=== PATIENT | male | born 1970 | race Caucasian/White ===

== ENCOUNTER → 2019-10-23 00:01 | Outpatient (BNVA) | payer MEDICAID, SELFPAY | PROVIDERS: PCP Nurse Practitioner; Referring Provider Nurse Practitioner; Visit Provider Nurse Practitioner | DX: Z76.89 Persons encountering health services in other specified circumstances (principal); K29.50 Unspecified chronic gastritis without bleeding; F25.9 Schizoaffective disorder, unspecified; M54.2 Cervicalgia; M54.9 Dorsalgia, unspecified; G89.29 Other chronic pain | CPT/HCPCS: 80053; 80061; 85025 ==

== ENCOUNTER → 2019-12-03 10:19 | Outpatient (BNVA) | payer MEDICAID, SELFPAY | PROVIDERS: PCP Nurse Practitioner; Visit Provider Nurse Practitioner Psychiatric/Mental Health | DX: F25.0 Schizoaffective disorder, bipolar type (principal); F12.20 Cannabis dependence, uncomplicated; F17.210 Nicotine dependence, cigarettes, uncomplicated | CPT/HCPCS: 99213 ==

== ENCOUNTER → 2020-01-22 08:13 | Outpatient (BNVA) | payer MEDICAID, SELFPAY | PROVIDERS: PCP Nurse Practitioner; Visit Provider Nurse Practitioner Psychiatric/Mental Health | DX: F25.0 Schizoaffective disorder, bipolar type (principal); F12.20 Cannabis dependence, uncomplicated; F17.210 Nicotine dependence, cigarettes, uncomplicated; F43.12 Post-traumatic stress disorder, chronic | CPT/HCPCS: 99213 ==

== ENCOUNTER → 2020-03-18 08:12 | Outpatient (BNVA) | payer MEDICAID, SELFPAY | PROVIDERS: PCP Nurse Practitioner; Visit Provider Nurse Practitioner Psychiatric/Mental Health | DX: F25.0 Schizoaffective disorder, bipolar type (principal); F12.20 Cannabis dependence, uncomplicated; F17.210 Nicotine dependence, cigarettes, uncomplicated | CPT/HCPCS: 99213 ==

== ENCOUNTER → 2020-05-19 09:08 | Outpatient (BNVA) | payer MEDICAID, SELFPAY | PROVIDERS: PCP Nurse Practitioner; Visit Provider Nurse Practitioner Psychiatric/Mental Health | DX: F25.0 Schizoaffective disorder, bipolar type (principal); F12.20 Cannabis dependence, uncomplicated; F17.210 Nicotine dependence, cigarettes, uncomplicated | CPT/HCPCS: 99213 ==

== ENCOUNTER → 2020-07-07 11:58 | Outpatient (BNVA) | payer MEDICAID, SELFPAY | PROVIDERS: PCP Nurse Practitioner; Visit Provider Family Medicine Adult Medicine | DX: R10.11 Right upper quadrant pain (principal); G89.29 Other chronic pain; I10 Essential (primary) hypertension; J44.9 Chronic obstructive pulmonary disease, unspecified; M54.41 Lumbago with sciatica, right side; M54.42 Lumbago with sciatica, left side; R73.03 Prediabetes; E78.5 Hyperlipidemia, unspecified; K29.70 Gastritis, unspecified, without bleeding; Z68.29 Body mass index [BMI] 29.0-29.9, adult; F17.210 Nicotine dependence, cigarettes, uncomplicated | CPT/HCPCS: 80053; 80061; 83036; 85025; 86705; 86706; 86709; 86803; 87340 ==

== ENCOUNTER → 2020-07-14 07:33 | Outpatient (BNVA) | payer MEDICAID, SELFPAY | PROVIDERS: PCP Nurse Practitioner; Visit Provider Nurse Practitioner Psychiatric/Mental Health | DX: K29.70 Gastritis, unspecified, without bleeding (principal); F25.0 Schizoaffective disorder, bipolar type; F12.20 Cannabis dependence, uncomplicated; F17.210 Nicotine dependence, cigarettes, uncomplicated | CPT/HCPCS: 99213 ==

== ENCOUNTER → 2020-08-30 15:08 | Outpatient (BNVA) | payer MEDICAID, SELFPAY | PROVIDERS: PCP Nurse Practitioner; Visit Provider Emergency Medicine | DX: Z20.828 Contact with and (suspected) exposure to other viral communicable diseases (principal) | CPT/HCPCS: 87635 ==

== ENCOUNTER → 2020-09-15 07:33 | Outpatient (BNVA) | payer MEDICAID, SELFPAY | PROVIDERS: PCP Nurse Practitioner; Visit Provider Nurse Practitioner Psychiatric/Mental Health | DX: K29.70 Gastritis, unspecified, without bleeding (principal); F25.0 Schizoaffective disorder, bipolar type; F12.20 Cannabis dependence, uncomplicated; F17.210 Nicotine dependence, cigarettes, uncomplicated | CPT/HCPCS: 99213 ==

== ENCOUNTER → 2020-12-09 07:39 | Outpatient (BNVA) | payer MEDICAID, SELFPAY | PROVIDERS: PCP Nurse Practitioner; Visit Provider Nurse Practitioner Psychiatric/Mental Health | DX: F25.0 Schizoaffective disorder, bipolar type (principal); F12.20 Cannabis dependence, uncomplicated; F17.210 Nicotine dependence, cigarettes, uncomplicated; Z79.899 Other long term (current) drug therapy | CPT/HCPCS: 99213 ==

== ENCOUNTER 2020-12-21 15:41 | Outpatient (CLI) | payer MEDICAID, SELFPAY ==
--- NOTE | 2020-12-21 16:00 | MR_ITS ---
WS: [id number] MRI CERVICAL SPINE NONCONTRAST TECHNIQUE: Sagittal T1, T2 and STIR imaging. Axial T2, gradient, and fiesta imaging. CLINICAL INFORMATION: neck pain and weakness in right hand COMPARISON: None. FINDINGS: Straightening of the normal cervical lordosis. Cord signal is normal. No high-grade central canal ashwin nosis. C2-C3: Normal. C3-C4: Mild disc bulging with osteophytic ridging. Mild facet arthropathy. Mild bilateral bony forami nal narrowing. C4-C5: Mild disc osteophyte complex with endplate ridging. Advanced left facet arthropathy with peria rticular edema. Small central protrusion. Mild central canal stenosis. Severe left and moderate right bony foraminal narrowing. C5-C6: Disc disc osteophyte complex with endplate ridging. Severe right and mild left bony foraminal narrowing. Moderate to advanced left facet arthropathy. C6-C7: Disc osteophyte complex with mild central canal stenosis. Tiny central protrusion. Moderate to severe left and moderate right bony foraminal narrowing. C7-T1: Mild bilateral bony foraminal narrowing. Spinal canal is patent Visualized brain stem structures: Normal. Prevertebral soft tissues: Normal. MR/MR cervical spin wo con* [id number] IMPRESSION: 1. Straightening of the normal cervical lordosis. Cord signal is normal. 2. Mild central canal stenosis C3-C4 C4-C5 and C6-C7 worse at C6-C7. 3. Moderate to severe bony foraminal narrowing worse at left C4-5, right C5-C6 and left C6-7. 4. Advanced left facet arthropathy C4-5 with periarticular edema consistent wi th synovitis/degenerative change.
== END 2020-12-21 15:42 | disposition home or self-care (01) ==
LOC: RADSHAW 15:43
PROVIDERS: PCP Family Medicine Adult Medicine; Visit Provider Family Medicine
DX: R53.1 Weakness (principal); M47.812 Spondylosis without myelopathy or radiculopathy, cervical region; R60.0 Localized edema; M48.02 Spinal stenosis, cervical region
CPT/HCPCS: 72141

== ENCOUNTER → 2021-01-07 13:46 | Outpatient (BNVA) | payer MEDICAID, SELFPAY | PROVIDERS: PCP Family Medicine Adult Medicine; Referring Provider Family Medicine; Visit Provider Orthopaedic Surgery | DX: M48.02 Spinal stenosis, cervical region (principal) | CPT/HCPCS: 72050 ==

== ENCOUNTER → 2021-01-14 11:49 | Outpatient (BNVA) | payer MEDICAID, SELFPAY | PROVIDERS: PCP Family Medicine Adult Medicine; Visit Provider Family Medicine Adult Medicine | DX: E78.5 Hyperlipidemia, unspecified (principal); I10 Essential (primary) hypertension; R73.03 Prediabetes; J44.9 Chronic obstructive pulmonary disease, unspecified; M50.121 Cervical disc disorder at C4-C5 level with radiculopathy; F17.210 Nicotine dependence, cigarettes, uncomplicated; Z68.31 Body mass index [BMI] 31.0-31.9, adult | CPT/HCPCS: 80053; 80061; 83036 ==

== ENCOUNTER → 2021-03-04 08:07 | Outpatient (BNVA) | payer MEDICAID, SELFPAY | PROVIDERS: PCP Family Medicine Adult Medicine; Visit Provider Nurse Practitioner Psychiatric/Mental Health | DX: F25.0 Schizoaffective disorder, bipolar type (principal); F12.20 Cannabis dependence, uncomplicated; F17.210 Nicotine dependence, cigarettes, uncomplicated | CPT/HCPCS: 99214 ==

== ENCOUNTER → 2021-05-27 07:21 | Outpatient (BNVA) | payer MEDICAID, SELFPAY | PROVIDERS: PCP Family Medicine Adult Medicine; Visit Provider Nurse Practitioner Psychiatric/Mental Health | DX: F25.0 Schizoaffective disorder, bipolar type (principal); F12.20 Cannabis dependence, uncomplicated; F17.210 Nicotine dependence, cigarettes, uncomplicated | CPT/HCPCS: 99214 ==

== ENCOUNTER → 2021-09-08 07:59 | Outpatient (BNVA) | payer MEDICAID, SELFPAY | PROVIDERS: PCP Family Medicine Adult Medicine; Visit Provider Nurse Practitioner Psychiatric/Mental Health | DX: F25.0 Schizoaffective disorder, bipolar type (principal); F12.20 Cannabis dependence, uncomplicated; F17.210 Nicotine dependence, cigarettes, uncomplicated; R41.9 Unspecified symptoms and signs involving cognitive functions and awareness | CPT/HCPCS: 99214 ==

== ENCOUNTER 2021-11-24 12:44 | Day surgery (SDC) | payer MEDICAID, SELFPAY ==
[2021-11-24 12:46] VITALS: BP 142/87; PULSE 88; RESP 17; O2SAT 97; BMI 25.1
--- NOTE | 2021-11-24 12:52 | W.ED.GENADLT ---
HPI - General Adult General: Chief complaint: Airway/Esophagus Foreign Body Stated complaint: UNABLE TO SWALLOW MEAT STUCK IN THROAT Time Seen by Provider: 11/24/21 12:44 Source: patient Mode of arrival: EMS Limitations: no limitations History of Present Illness: 51-year-old male presents to the emergency room with complaint of inability to swallow. He began less than a minute after he was eating a piece of meat. He had it before where he had things felt like they got stuck but he was able to clear them in the past either he vomited them up or was able to get him to pass. Since then he has not been able to eat or drink has difficulty even swallowing saliva. He denies any chest pain he has no history of heart disease he not been sick prior to this. He states he is not previously had an esophageal impaction or dilation. Onset (ago): hour(s) Quality: aching Pain Consistency: constant Relieving factors: none Exacerbating factors: none Associated symptoms: Deny chest pain, confusion, cough, diaphoresis, decreased appetite, dyspnea, fevers/chills, headache(s), malaise, nausea, rash, palpitations, seizures, short of breath, syncope, vomiting or weakness Treatments prior to arrival: none Review of Systems Const: Denies: malaise or diaphoresis ENMT: Denies: throat pain, ear or mastoid pain, nasal discharge or nasal congestion Card: Denies: chest pain, palpitations or syncope Resp: Denies: dyspnea GI: Denies: nausea or vomiting : Denies: flank pain, dysuria, urinary frequency or urinary urgency Skin/Breast: Denies: rash Neuro: Denies: headache(s) or confusion FORMERLY [facility], 1928–1983 ED PFSH: Medical History Cannabis dependence, daily use Patient states he uses daily for pain management-reports having a medical marijuana card Cervical disc disorder at C4-C5 level with radiculopathy Chronic low back pain with bilateral sciatica COPD (chronic obstructive pulmonary disease) Encounter to establish care Esophageal stricture Hyperlipidemia Hypertension Nicotine dependence, cigarettes, uncomplicated Prediabetes Psychiatric care Radiculopathy of cervical region Radiculopathy of lumbosacral region Right upper quadrant abdominal pain Schizoaffective disorder, bipolar type Surgical History H/O esophagogastroduodenoscopy (11/24/21) Disimpaction of food bolus History of ankle surgery left History of arthroscopic knee surgery Social History Smoking and tobacco status: current every day smoker cigarettes Packs smoked per day: 1 Alcohol intake: former Adopted: Yes History of recent travel: No Physical Exam Const: COMMON NORMALS: no acute distress GENERAL APPEARANCE: cooperative and comfortable ORIENTATION/CONSCIOUSNESS: Yes awake, Yes oriented to person, Yes oriented to place and Yes oriented to time HENMT: COMMON NORMALS: normocephalic, atraumatic and hearing grossly normal bilaterally HEAD & SCALP: normocephalic and atraumatic Neck/C-Spine: COMMON NORMALS: no JVD Resp: COMMON NORMALS: normal respiratory effort, No retractions, No use of accessory muscles and clear to auscultation bilaterally AUSCULTATION: clear to auscultation bilaterally Cardio: COMMON NORMALS: no JVD, regular rate, regular rhythm and No murmurs present (Cardio) RATE: regular rate RHYTHM: regular rhythm GI: COMMON NORMALS: Soft to palpation and No hepatosplenomegaly present AUSCULTATION: Yes normoactive bowel sounds PALPATION: Yes Soft to palpation, No Tenderness to palpation present (GI), No Guarding due to palpation present (GI) and Yes No hepatosplenomegaly present Extremity: COMMON NORMALS: normal to inspection, capillary refill normal, no clubbing, cyanosis or edema, no calf tenderness and no pedal edema Neuro: SENSORIUM/ORIENTATION: Yes oriented to person, Yes oriented to place and Yes oriented to time Skin: COMMON NORMALS: no rashes or lesions noted GENERAL SKIN EXAM: no rashes or lesions noted Course Vital Signs: Vital signs: Vital Signs Temperature 97 F L 11/24/21 14:57 Pulse Rate 79 11/24/21 15:07 Respiratory Rate 16 11/24/21 15:07 Blood Pressure 124/85 11/24/21 15:07 Pulse Oximetry 99 11/24/21 15:07 [facility] - General Adult Medical Decision Making ` Foreign body discussed with surgery on-call they agreed to take the patient was discharged from the ER directly to outpatient surgery for EGD. Medical Records I reviewed the patient's medical records. Lab Data : 11/24/21 13:17 11/24/21 13:17 Laboratory Results WBC 4.8 10^3/uL (4.0-10.0) 11/24/21 13:17 RBC 5.08 10^6/uL (4.1-5.3) 11/24/21 13:17 Hgb 16.1 g/dL (11.7-16.6) 11/24/21 13:17 Hct 47.5 % (42.0-52.0) 11/24/21 13:17 MCV 93.5 fl (80-94) 11/24/21 13:17 MCH 31.7 pg (28.0-34.0) 11/24/21 13:17 MCHC 33.9 g/dL (30.0-36.0) 11/24/21 13:17 RDW 13.6 % (12.1-15.1) 11/24/21 13:17 Plt Count 202 10^3/cmm (130-400) 11/24/21 13:17 MPV 10.7 fL (7.4-10.4) H 11/24/21 13:17 Neut % (Auto) 48.0 % 11/24/21 13:17 Lymph % (Auto) 38.7 % 11/24/21 13:17 [place] % (Auto) 8.2 % 11/24/21 13:17 Eos % (Auto) 3.6 % 11/24/21 13:17 Baso % (Auto) 1.3 % 11/24/21 13:17 Neut # (Auto) 2.28 10^3/uL (1.8-7.7) 11/24/21 13:17 Lymph # (Auto) 1.8 10^3/uL (0.8-4.8) 11/24/21 13:17 [place] # (Auto) 0.4 10^3/uL (0.2-0.9) 11/24/21 13:17 Eos # (Auto) 0.2 10^3/uL (0.0-0.8) 11/24/21 13:17 Baso # (Auto) 0.1 10^3/uL (0.0-0.1) 11/24/21 13:17 Nucleated RBC % (auto) 0 % 11/24/21 13:17 Nucleated RBCs # 0.0 /100WBC 11/24/21 13:17 Sodium 140 mmol/L (136-145) 11/24/21 13:17 Potassium 4.0 mmol/L (3.5-5.1) 11/24/21 13:17 Chloride 105 mmol/L (98-107) 11/24/21 13:17 Carbon Dioxide 22 mmol/L (22-29) 11/24/21 13:17 Anion Gap 17.0 (5-19) 11/24/21 13:17 BUN 11 mg/dL (6-20) 11/24/21 13:17 Creatinine 0.8 mg/dL (0.7-1.2) 11/24/21 13:17 GFR Calculation 102.3 mL/min (90-130) 11/24/21 13:17 Glucose 84 mg/dL (65-115) 11/24/21 13:17 Calculated Osmolality 289 mOsm/kg (285-295) 11/24/21 13:17 Calcium 9.7 mg/dL (8.5-10.5) 11/24/21 13:17 Discharge Plan Discharge Patient Disposition: Home Clinical Impression: Esophageal foreign body Condition: Stable Discharge Orders: Discharge Order (Routine); Ordered 11/24/21 Ordered By: Fab Purcell Discharge ED (Routine); Ordered 11/24/21 Ordered By: Javi Peck Coding Level of Care Code ED Fire Engine Pump Operator for Radha Charles
--- NOTE | 2021-11-24 13:04 | PC.NURSE ---
Patient stated that there is no point in taking his blood because he is not here to get blood work done. He refuses to have labs drawn.
--- NOTE | 2021-11-24 13:08 | P.ANESASSM_ITS ---
Pre-Anesthetic Assessment Height/Weight: Height 1.78 m Weight 79.379 kg Pulse Resp BP Pulse Ox 88 17 142/87 97 11/24/21 12:46 11/24/21 12:46 11/24/21 12:46 11/24/21 12:46 Operation Date: 11/24/21 13:15 Proposed Procedures p EGD(Not Applicable) - Fab Purcell MD Pulmonary Chronic Obstructive Pulmonary Disease CV/HEM [place] [facility] [place] Cervical disk disorder with radiculopathy Medications/Allergies Home Medications Medication Instructions Recorded Confirmed Last Taken Type fluticasone 250 mcg-salmeterol 50 1 inh INHALATION BID #60 ea 04/08/21 09/07/21 Unknown Rx mcg/dose blistr powdr for inhalation (Advair Diskus) meloxicam 7.5 mg tablet 7.5 mg PO BIDWMEAL #60 tab 04/08/21 09/07/21 Unknown Rx gabapentin 300 mg capsule See Rx Instructions .ROUTE 05/14/21 09/07/21 Unknown Rx .COMPLEX #270 cap omeprazole 20 mg capsule,delayed See Rx Instructions .ROUTE 05/14/21 09/07/21 Unknown Rx release .COMPLEX #90 cap propranolol 10 mg tablet See Rx Instructions .ROUTE 05/14/21 09/07/21 Unknown Rx .COMPLEX #270 tab ProAir HFA 90 mcg/actuation See Rx Instructions .ROUTE 08/24/21 09/07/21 Unknown Rx aerosol inhaler (albuterol sulfate) .COMPLEX #8.5 gram NS gemfibrozil 600 mg tablet See Rx Instructions .ROUTE 08/24/21 09/07/21 Unknown Rx .COMPLEX #60 tab benztropine 1 mg tablet 1 mg PO BID #180 tab 09/08/21 09/08/21 Unknown Rx cyproheptadine 4 mg tablet 4 mg PO .QHS #90 tab 09/08/21 09/08/21 Unknown Rx fluoxetine 40 mg capsule 40 mg PO QAM #90 cap 09/08/21 09/08/21 Unknown Rx quetiapine 100 mg tablet 100 mg PO QAM #90 tab 09/08/21 09/08/21 Unknown Rx quetiapine 300 mg tablet (Seroquel) 300 mg PO .bedtime #90 tab 09/08/21 09/08/21 Unknown Rx Allergies Allergy/AdvReac Type Severity Reaction Status Date / Time chlorpromazine AdvReac Intermediate ADR-Seizure Verified 04/08/21 13:11 [From Thorazine] hydroxyzine [From Vistaril] AdvReac Intermediate ADR-Anxiety Verified 04/08/21 13:11 [facility] Anesthesia Medical History (Updated 11/24/21 @ 13:07 by Javi Peck, ) Cannabis dependence, daily use Patient states he uses daily for pain management-reports having a medical marijuana card Cervical disc disorder at C4-C5 level with radiculopathy Chronic low back pain with bilateral sciatica COPD (chronic obstructive pulmonary disease) Encounter to establish care Hyperlipidemia Hypertension Nicotine dependence, cigarettes, uncomplicated Prediabetes Psychiatric care Radiculopathy of cervical region Radiculopathy of lumbosacral region Right upper quadrant abdominal pain Schizoaffective disorder, bipolar type Surgical History History of ankle surgery left History of arthroscopic knee surgery Social History Smoking and tobacco status: current every day smoker cigarettes Packs smoked per day: 1 Alcohol intake: former Adopted: Yes History of recent travel: No Data Anesthesia Cardiac Studies: No Data to Display
[2021-11-24] MEDS: sodium chloride 0.9% 1,000 ML 30 ML IV (13:12)
--- NOTE | 2021-11-24 13:22 | PM.HP ---
Providers/Chief Complaint Primary Care Provider: Jasson Torres MD Chief Complaint: UNABLE TO SWALLOW MEAT STUCK IN THROAT History of Present Illness Marty Rosas is a 51 year old male who is edentulous and had piece of steak at midnight and has been unable to swallow any liquids since then. Patient denies any chest or abdominal pain. No similar episodes in the past. Patient is currently on omeprazole. He denies any hematemesis Review of Systems General: Reports: 10 or more systems reviewed and unremarkable except in HPI and below Medications/Allergies Home Medications Medication Instructions Recorded Confirmed Last Taken Type fluticasone 250 mcg-salmeterol 50 1 inh INHALATION BID #60 ea 04/08/21 09/07/21 Unknown Rx mcg/dose blistr powdr for inhalation (Advair Diskus) meloxicam 7.5 mg tablet 7.5 mg PO BIDWMEAL #60 tab 04/08/21 09/07/21 Unknown Rx gabapentin 300 mg capsule See Rx Instructions .ROUTE 05/14/21 09/07/21 Unknown Rx .COMPLEX #270 cap omeprazole 20 mg capsule,delayed See Rx Instructions .ROUTE 05/14/21 09/07/21 Unknown Rx release .COMPLEX #90 cap propranolol 10 mg tablet See Rx Instructions .ROUTE 05/14/21 09/07/21 Unknown Rx .COMPLEX #270 tab ProAir HFA 90 mcg/actuation See Rx Instructions .ROUTE 08/24/21 09/07/21 Unknown Rx aerosol inhaler (albuterol sulfate) .COMPLEX #8.5 gram NS gemfibrozil 600 mg tablet See Rx Instructions .ROUTE 08/24/21 09/07/21 Unknown Rx .COMPLEX #60 tab benztropine 1 mg tablet 1 mg PO BID #180 tab 09/08/21 09/08/21 Unknown Rx cyproheptadine 4 mg tablet 4 mg PO .QHS #90 tab 09/08/21 09/08/21 Unknown Rx fluoxetine 40 mg capsule 40 mg PO QAM #90 cap 09/08/21 09/08/21 Unknown Rx quetiapine 100 mg tablet 100 mg PO QAM #90 tab 09/08/21 09/08/21 Unknown Rx quetiapine 300 mg tablet (Seroquel) 300 mg PO .bedtime #90 tab 09/08/21 09/08/21 Unknown Rx Allergies Allergy/AdvReac Type Severity Reaction Status Date / Time chlorpromazine AdvReac Intermediate ADR-Seizure Verified 04/08/21 13:11 [From Thorazine] hydroxyzine [From Vistaril] AdvReac Intermediate ADR-Anxiety Verified 04/08/21 13:11 PFSH Acute PFSH: Medical History (Updated 11/24/21 @ 15:13 by Fab Purcell MD) Cannabis dependence, daily use Patient states he uses daily for pain management-reports having a medical marijuana card Cervical disc disorder at C4-C5 level with radiculopathy Chronic low back pain with bilateral sciatica COPD (chronic obstructive pulmonary disease) Encounter to establish care Esophageal stricture Hyperlipidemia Hypertension Nicotine dependence, cigarettes, uncomplicated Prediabetes Psychiatric care Radiculopathy of cervical region Radiculopathy of lumbosacral region Right upper quadrant abdominal pain Schizoaffective disorder, bipolar type Surgical History (Updated 11/24/21 @ 15:13 by Fab Purcell MD) H/O esophagogastroduodenoscopy (11/24/21) Disimpaction of food bolus History of ankle surgery left History of arthroscopic knee surgery Social History Smoking and tobacco status: current every day smoker cigarettes Packs smoked per day: 1 Alcohol intake: former Adopted: Yes History of recent travel: No Vitals/I&O/Wt Last Vital Signs Pulse 88 11/24/21 12:46 Resp 17 11/24/21 12:46 BP 142/87 11/24/21 12:46 Pulse Ox 97 11/24/21 12:46 Weight last 48 hrs Weight 175 lb Physical Exam Narrative: HEENT: Normocephalic Eye: Sclera /conjunctiva normal Abdomen: Soft to palpation Neurological: Oriented to place person and time Skin: Intact, no lesions appreciated on gross exam Data : 11/24/21 13:17 11/24/21 13:17 A&P Assessment and plan (1) Esophageal foreign body: 51-year-old male who presents with 12-hour history of esophageal obstruction due to food impaction. Plan for EGD with disimpaction of food bolus Procedure, risks, benefits and alternatives have been discussed with the patient who wishes to proceed with surgery. Status: Acute Attestations Medical Necessity Statement*: Esophageal obstruction due to food impaction requiring EGD Coding Level of Care Code Acute Highway Maintenance Technician for Chg Fwd Diagnoses Esophageal foreign body T18.108A
[2021-11-24 13:24] LABS: Basophils # 0.1 10^3/uL (0.0-0.1); Basophils % 1.3 %; Eosinophils # 0.2 10^3/uL (0.0-0.8); Eosinophils % 3.6 %; Hematocrit 47.5 % (42.0-52.0); Hemoglobin 16.1 g/dL (11.7-16.6); Lymphocytes # 1.8 10^3/uL (0.8-4.8); Lymphocytes % 38.7 %; Mean Corpuscular HGB Conc 33.9 g/dL (30.0-36.0); Mean Corpuscular Hemoglobin 31.7 pg (28.0-34.0); Mean Corpuscular Volume 93.5 fl (80-94); Mean Platelet Volume 10.7 fL (7.4-10.4); Monocytes # 0.4 10^3/uL (0.2-0.9); Monocytes % 8.2 %; Neutrophils # 2.28 10^3/uL (1.8-7.7); Nucleated Red Blood Cells % 0 %; Platelet Count 202 10^3/cmm (130-400); Red Blood Count 5.08 10^6/uL (4.1-5.3); Red Cell Distribution Width 13.6 % (12.1-15.1); White Blood Count 4.8 10^3/uL (4.0-10.0)
[2021-11-24 13:47] LABS: Blood Urea Nitrogen 11 mg/dL (6-20); Calcium 9.7 mg/dL (8.5-10.5); Carbon Dioxide 22 mmol/L (22-29); Chloride 105 mmol/L (98-107); Glomerular Filtration Rate 102.3 mL/min (90-130); Glucose 84 mg/dL (65-115); Osmolality Calculated 289 mOsm/kg (285-295); Sodium 140 mmol/L (136-145)
[2021-11-24 14:46] VITALS: BP 116/75; PULSE 82; RESP 12; TEMP 36.1; O2SAT 100
[2021-11-24 14:51] VITALS: BP 128/83; PULSE 73; RESP 18; O2SAT 98
[2021-11-24 14:56] VITALS: BP 122/81; PULSE 84; RESP 20; O2SAT 97
[2021-11-24 14:57] VITALS: BP 122/81; PULSE 84; RESP 20; TEMP 36.1; O2SAT 97
[2021-11-24 15:07] VITALS: BP 124/85; PULSE 79; RESP 16; O2SAT 99
--- NOTE | 2021-11-24 15:14 | ANES.PREANE2 ---
Pre-Anesthetic Assessment Height/Weight: Height 1.78 m Weight 79.379 kg Temp Pulse Resp BP Pulse Ox 97 F L 79 16 124/85 99 11/24/21 14:57 11/24/21 15:07 11/24/21 15:07 11/24/21 15:07 11/24/21 15:07 Operation Date: 11/24/21 13:15 Proposed Procedures p EGD(Not Applicable) - Fab Purcell MD Familial anesthetic complications: None Was Beta Stef taken within 24 hours: N/A ( off my meds ) Social Tobacco and No alcohol Exam alert, oriented x 3, clear to auscultation bilaterally and regular rate & rhythm Airway Submandibular: within normal limits Cervical ROM: within normal limits Mallampati: Class I Dentition: false Pulmonary Chronic Obstructive Pulmonary Disease CV/HEM Hypertension None reported Hepatic None reported GI Gastroesophageal Reflux Disease Metabolic None reported Musc/skel Osteoarthritis/DJD Neuropsych Schizoaffective disorder Anesthetic Plan ASA status: 2 Anesthesia: Anesthesia Evaluation and General Other: We discussed risk and benefits of general anesthesia including PONV, sore throat (sometimes severe), corneal abrasion, positioning and peripheral nerve injuries, life threatening allergic reaction, post operative ICU admission requiring prolonged intubation, stroke, heart attack, , and rare incidences of recall. Patient consents to proceed with general anesthesia. Risk of > 500 ml blood loss (7ml/kg in children): No Other Pertinent Information Note inadvertently filed incomplete. Patient seen and examined prior to procedure. Medications/Allergies Home Medications Medication Instructions Recorded Confirmed Last Taken Type fluticasone 250 mcg-salmeterol 50 1 inh INHALATION BID #60 ea 04/08/21 09/07/21 Unknown Rx mcg/dose blistr powdr for inhalation (Advair Diskus) meloxicam 7.5 mg tablet 7.5 mg PO BIDWMEAL #60 tab 04/08/21 09/07/21 Unknown Rx gabapentin 300 mg capsule See Rx Instructions .ROUTE 05/14/21 09/07/21 Unknown Rx .COMPLEX #270 cap omeprazole 20 mg capsule,delayed See Rx Instructions .ROUTE 05/14/21 09/07/21 Unknown Rx release .COMPLEX #90 cap propranolol 10 mg tablet See Rx Instructions .ROUTE 05/14/21 09/07/21 Unknown Rx .COMPLEX #270 tab ProAir HFA 90 mcg/actuation See Rx Instructions .ROUTE 08/24/21 09/07/21 Unknown Rx aerosol inhaler (albuterol sulfate) .COMPLEX #8.5 gram NS gemfibrozil 600 mg tablet See Rx Instructions .ROUTE 08/24/21 09/07/21 Unknown Rx .COMPLEX #60 tab benztropine 1 mg tablet 1 mg PO BID #180 tab 09/08/21 09/08/21 Unknown Rx cyproheptadine 4 mg tablet 4 mg PO .QHS #90 tab 09/08/21 09/08/21 Unknown Rx fluoxetine 40 mg capsule 40 mg PO QAM #90 cap 09/08/21 09/08/21 Unknown Rx quetiapine 100 mg tablet 100 mg PO QAM #90 tab 09/08/21 09/08/21 Unknown Rx quetiapine 300 mg tablet (Seroquel) 300 mg PO .bedtime #90 tab 09/08/21 09/08/21 Unknown Rx Allergies Allergy/AdvReac Type Severity Reaction Status Date / Time chlorpromazine AdvReac Intermediate ADR-Seizure Verified 04/08/21 13:11 [From Thorazine] hydroxyzine [From Vistaril] AdvReac Intermediate ADR-Anxiety Verified 04/08/21 13:11 Current Medications Generic Name Dose Route Start Last Admin Trade Name Freq PRN Reason Stop Dose Admin Sodium Chloride 1,000 mls @ 30 mls/hr 11/24/21 14:30 11/24/21 15:11 Sodium Chloride 0.9% IV 11/25/21 14:29 Infused .Q24H OCTAVIA Infusion PFS Anesthesia Medical History (Updated 11/24/21 @ 15:13 by Fab Purcell MD) Cannabis dependence, daily use Patient states he uses daily for pain management-reports having a medical marijuana card Cervical disc disorder at C4-C5 level with radiculopathy Chronic low back pain with bilateral sciatica COPD (chronic obstructive pulmonary disease) Encounter to establish care Esophageal stricture Hyperlipidemia Hypertension Nicotine dependence, cigarettes, uncomplicated Prediabetes Psychiatric care Radiculopathy of cervical region Radiculopathy of lumbosacral region Right upper quadrant abdominal pain Schizoaffective disorder, bipolar type Surgical History (Updated 11/24/21 @ 15:13 by Fab Purcell MD) H/O esophagogastroduodenoscopy (11/24/21) Disimpaction of food bolus History of ankle surgery left History of arthroscopic knee surgery Social History Smoking and tobacco status: current every day smoker cigarettes Packs smoked per day: 1 Alcohol intake: former Adopted: Yes History of recent travel: No Data Anesthesia : 11/24/21 13:17 11/24/21 13:17 Short CBC 11/24/21 Range/Units 13:17 WBC 4.8 (4.0-10.0) 10^3/uL Hgb 16.1 (11.7-16.6) g/dL Hct 47.5 (42.0-52.0) % MCV 93.5 (80-94) fl Plt Count 202 (130-400) 10^3/cmm Neut % (Auto) 48.0 % Neut # (Auto) 2.28 (1.8-7.7) 10^3/uL BMP 11/24/21 13:17 Sodium 140 Potassium 4.0 Chloride 105 Carbon Dioxide 22 BUN 11 Creatinine 0.8 Glucose 84 Calcium 9.7 Cardiac Studies: No Data to Display
--- NOTE | 2021-11-24 16:25 | ANE.PACU2 ---
Inpatient post-anesthesia follow up: Airway intact: Yes Vital signs: Temperature 97 F Pulse Rate 79 Respiratory Rate 16 Blood Pressure 124/85 Pulse Oximetry 99 Oxygen Delivery Me thod Room Air Oxygen Flow Rate 8 Fraction of Inspir ed Oxygen Hydration adequate: Yes Nausea and vomiting: No Pain level: 1 Mental status: Baseline
== END 2021-11-24 15:20 | disposition home or self-care (01) ==
LOC: ER 13:07 → OPS 13:09
PROVIDERS: Emergency Provider Family Medicine; PCP Family Medicine Adult Medicine; Visit Provider Surgery
PROC: 0DJ08ZZ Inspection of Upper Intestinal Tract, Via Natural or Artificial Opening Endoscopic (ICD-10-PCS; CPT 43235; principal; 2021-11-24 13:15)
DX: T17.228A Food in pharynx causing other injury, initial encounter (principal); J44.9 Chronic obstructive pulmonary disease, unspecified; E78.5 Hyperlipidemia, unspecified; I10 Essential (primary) hypertension; F17.210 Nicotine dependence, cigarettes, uncomplicated; R73.03 Prediabetes; K21.9 Gastro-esophageal reflux disease without esophagitis; M19.90 Unspecified osteoarthritis, unspecified site; F25.9 Schizoaffective disorder, unspecified
CPT/HCPCS: 43239; 43247; 80048; 85025; 88305; 99283; 99291; 99292; J0330; J1100; J2405; J2704; J3010; J3490; J7030

== ENCOUNTER 2021-12-10 20:54 | Inpatient (IN) | payer MEDICAID, SELFPAY ==
[2021-12-10 21:23] VITALS: BP 144/90; PULSE 98; RESP 18; TEMP 36.2; O2SAT 99; BMI 23.6
[2021-12-10] MEDS: ziprasidone 20 mg/mL SDV IM (22:12)
[2021-12-10] MEDS: LORazepam 2 mg/mL INJ 1 mL IM (22:21)
[2021-12-10 22:32] LABS: Basophils # 0.1 10^3/uL (0.0-0.1); Basophils % 0.8 %; Eosinophils # 0.2 10^3/uL (0.0-0.8); Eosinophils % 2.6 %; Hematocrit 49.8 % (42.0-52.0); Hemoglobin 17.1 g/dL (11.7-16.6); Lymphocytes # 2.6 10^3/uL (0.8-4.8); Lymphocytes % 42.7 %; Mean Corpuscular HGB Conc 34.3 g/dL (30.0-36.0); Mean Corpuscular Hemoglobin 31.4 pg (28.0-34.0); Mean Corpuscular Volume 91.5 fl (80-94); Mean Platelet Volume 10.6 fL (7.4-10.4); Monocytes # 0.6 10^3/uL (0.2-0.9); Monocytes % 10.1 %; Neutrophils # 2.67 10^3/uL (1.8-7.7); Neutrophils % 43.6 %; Nucleated Red Blood Cells % 0 %; Platelet Count 219 10^3/cmm (130-400); Red Blood Count 5.44 10^6/uL (4.1-5.3); Red Cell Distribution Width 13.4 % (12.1-15.1); White Blood Count 6.1 10^3/uL (4.0-10.0)
[2021-12-10 22:52] LABS: Acetaminophen < 5.0 ug/mL (10-30); Alanine Aminotransferase 56 U/L (0-41); Albumin Level 4.8 g/dL (3.5-5.2); Alcohol Level 23 mg/dL (0-10); Alkaline Phosphatase 84 IU/L (40-130); Anion Gap 19.1 (5-19); Aspartate Amino Transferase 88 U/L (0-40); Blood Urea Nitrogen 9 mg/dL (6-20); Calcium 10.3 mg/dL (8.5-10.5); Carbon Dioxide 24 mmol/L (22-29); Chloride 97 mmol/L (98-107); Creatinine Clr Calc Pharmacy 92.1715; Globulin 2.7 g/dL (1.3-4.6); Glomerular Filtration Rate 79.1 mL/min (90-130); Glucose 75 mg/dL (65-115); Osmolality Calculated 279 mOsm/kg (285-295); Potassium 4.1 mmol/L (3.5-5.1); Salicylate < 0.3 mg/dL (3-10); Sodium 136 mmol/L (136-145); Total Bilirubin 0.7 mg/dL (0.15-1.2); Total Protein 7.5 g/dL (6.6-8.7)
[2021-12-11 00:50] VITALS: BP 142/86; PULSE 82; RESP 16; O2SAT 98
[2021-12-11 00:51] VITALS: BP 116/76; PULSE 97; RESP 18; TEMP 36.3; O2SAT 96
--- NOTE | 2021-12-11 01:45 | PC.ADMIT ---
[facility] Admission Note: The patient,Marty Rosas,51 y/o, was given written information regarding hospital policies, unit procedures and contact persons. Patient's smoking status: current every day smoker. Vital Signs - 8 hr 12/10/21 21:23 12/11/21 00:50 12/11/21 00:51 Temperature 97.1 F L 97.4 F L Pulse Rate 98 82 97 Respiratory Rate 18 16 18 Blood Pressure 144/90 142/86 116/76 Pulse Oximetry 99 98 96 Rec'd an 51 y/o white male. Vol from the ED. He was brought to the ED by a friend. States he has been using meth. He was very delusional. He got on the unit at 0059. He was very hostile demanding to go to bed. He was somewhat cooperative with the body assessment and change out. He has numerous tattoo's- abd, Right upper arm. Right upper chest, Left upper arm, Left side of neck, and upper back. He had open sores on both arms. He has two areas on neck that appears to be carbajal. He has several reddened harris on his chest. He has a long scratch on left buttock, left thigh, and right lower leg. He was dirty. He did not cooperative with the assessment unable to answer questions at this time.
--- NOTE | 2021-12-11 03:18 | ED.C_ITS ---
HPI - Psych General: Chief Complaint: Psychiatric Symptoms Stated Complaint: DRUGS Time Seen by Provider: 12/10/21 21:50 Source: patient History of Present Illness: 51-year-old male with a long history of psychiatric illness presents through the front door. In the waiting room, he is restless, up walking around. He shouts. When brought back, he complains about bugs crawling out of his body. He states the bugs are reproducing inside of them and hatching. He shows us a bag of bread crumbs and tells us these are what is growing inside him. He does also state that he has been off of his psychiatric medication, and would like to go back on his medication. He has been self-medicating with drugs, likely amphetamine. He denies any suicidality or homicidality, but does wish treatment. He also believes his girlfriend is out to get him . MD complaint: altered mental status and other Onset (ago): day(s) Duration: constant and getting worse History of same: Yes Relieving factors: none Exacerbating factors: none Context: recent alcohol abuse and recent drug abuse Associated psychiatric symptoms: racing thoughts and delusions Associated symptoms: Reports visual hallucinations and delusions; Deny auditory hallucinations, homicidal ideation or suicidal ideation Review of Systems Const: Denies: fever(s) Eyes: Denies: change in vision Card: Denies: chest pain or palpitations Resp: Denies: dyspnea, productive cough or non-productive cough GI: Denies: abdominal pain, nausea, vomiting or hematemesis Psych: Reports: visual hallucinations; Denies: auditory hallucinations, suicidal ideation or homicidal ideation [facility] ED PFSH: Medical History Cannabis dependence, daily use Patient states he uses daily for pain management-reports having a medical marijuana card Cervical disc disorder at C4-C5 level with radiculopathy Chronic low back pain with bilateral sciatica COPD (chronic obstructive pulmonary disease) Encounter to establish care Esophageal stricture Hyperlipidemia Hypertension Nicotine dependence, cigarettes, uncomplicated Prediabetes Psychiatric care Radiculopathy of cervical region Radiculopathy of lumbosacral region Right upper quadrant abdominal pain Schizoaffective disorder, bipolar type Surgical History H/O esophagogastroduodenoscopy (11/24/21) Disimpaction of food bolus History of ankle surgery left History of arthroscopic knee surgery Social History Smoking and tobacco status: current every day smoker cigarettes Packs smoked per day: 1 Alcohol intake: former Adopted: Yes History of recent travel: No Physical Exam Const: COMMON NORMALS: alert GENERAL APPEARANCE: disheveled; not cooperative ORIENTATION/CONSCIOUSNESS: Yes oriented to person and Yes oriented to place HENMT: COMMON NORMALS: normocephalic, atraumatic, external ears normal and Normal external nose present HEAD & SCALP: normocephalic and atraumatic FACE & SINUS: normal facial exam NOSE: Normal external nose present EXTERNAL EAR: Yes external ears normal Eye: COMMON NORMALS: Equal, round and reactive pupils present and EOMs intact bilaterally PUPIL: Yes Equal, round and reactive pupils present Chest: COMMONS NORMALS: normal inspection of the chest Resp: COMMON NORMALS: normal respiratory effort, No use of accessory muscles and clear to auscultation bilaterally AUSCULTATION: clear to auscultation bilaterally Cardio: COMMON NORMALS: regular rate and regular rhythm RATE: regular rate RHYTHM: regular rhythm GI: COMMON NORMALS: Normal to inspection, nondistended, normoactive bowel sounds present and Soft to palpation PALPATION: Yes Soft to palpation Neuro: SENSORIUM/ORIENTATION: Yes alert, Yes oriented to person and Yes oriented to place SPEECH: speech normal Psych: APPEARANCE: Yes unkempt ATTITUDE: Yes paranoid, Yes Withdrawn affect present, Yes uncooperative and Yes evasive ACTIVITY/MOTOR BEHAVIOR: Yes psychomotor agitation, Yes disorganized behavior and Yes restless SPEECH: Yes excessive and Yes loud THOUGHT CONTENT: Yes delusions Course Consultations: Consultation #1: mc Vital Signs: Vital signs: Vital Signs Temperature 97.4 F L 12/11/21 00:51 Pulse Rate 97 12/11/21 00:51 Respiratory Rate 18 12/11/21 00:51 Blood Pressure 116/76 12/11/21 00:51 Pulse Oximetry 96 12/11/21 00:51 MDM - Psych Medical Decision Making 51-year-old male came in seeking treatment, mainly for the bugs crawling out of my skin . But also wanting treatment for his psychiatric disorder as well. He is not suicidal or homicidal, therefore 96-hour order for hold was not placed. He is however paranoid, and delusional as well as seeing hallucinations. Because of this he was given Geodon and Ativan with good effect. Patient was much more calm and receptive to treatment following. We gave these medications with his blessing. Spoke with psychiatry. He is medically stable. He will go to the neuro psychiatry unit for further treatment given his psychosis Lab Data : 12/10/21 22:16 12/10/21 22:16 Laboratory Results WBC 6.1 10^3/uL (4.0-10.0) 12/10/21 22:16 RBC 5.44 10^6/uL (4.1-5.3) H 12/10/21 22:16 Hgb 17.1 g/dL (11.7-16.6) H 12/10/21 22:16 Hct 49.8 % (42.0-52.0) 12/10/21 22:16 MCV 91.5 fl (80-94) 12/10/21 22:16 MCH 31.4 pg (28.0-34.0) 12/10/21 22:16 MCHC 34.3 g/dL (30.0-36.0) 12/10/21 22:16 RDW 13.4 % (12.1-15.1) 12/10/21 22:16 Plt Count 219 10^3/cmm (130-400) 12/10/21 22:16 MPV 10.6 fL (7.4-10.4) H 12/10/21 22:16 Neut % (Auto) 43.6 % 12/10/21 22:16 Lymph % (Auto) 42.7 % 12/10/21 22:16 [place] % (Auto) 10.1 % 12/10/21 22:16 Eos % (Auto) 2.6 % 12/10/21 22:16 Baso % (Auto) 0.8 % 12/10/21 22:16 Neut # (Auto) 2.67 10^3/uL (1.8-7.7) 12/10/21 22:16 Lymph # (Auto) 2.6 10^3/uL (0.8-4.8) 12/10/21 22:16 [place] # (Auto) 0.6 10^3/uL (0.2-0.9) 12/10/21 22:16 Eos # (Auto) 0.2 10^3/uL (0.0-0.8) 12/10/21 22:16 Baso # (Auto) 0.1 10^3/uL (0.0-0.1) 12/10/21 22:16 Nucleated RBC % (auto) 0 % 12/10/21 22:16 Nucleated RBCs # 0.0 /100WBC 12/10/21 22:16 Sodium 136 mmol/L (136-145) 12/10/21 22:16 Potassium 4.1 mmol/L (3.5-5.1) 12/10/21 22:16 Chloride 97 mmol/L (98-107) L 12/10/21 22:16 Carbon Dioxide 24 mmol/L (22-29) 12/10/21 22:16 Anion Gap 19.1 (5-19) H 12/10/21 22:16 BUN 9 mg/dL (6-20) 12/10/21 22:16 Creatinine 1.0 mg/dL (0.7-1.2) 12/10/21 22:16 GFR Calculation 79.1 mL/min (90-130) L 12/10/21 22:16 Glucose 75 mg/dL (65-115) 12/10/21 22:16 Calculated Osmolality 279 mOsm/kg (285-295) L 12/10/21 22:16 Calcium 10.3 mg/dL (8.5-10.5) 12/10/21 22:16 Total Bilirubin 0.7 mg/dL (0.15-1.2) 12/10/21 22:16 AST 88 U/L (0-40) H 12/10/21 22:16 ALT 56 U/L (0-41) H 12/10/21 22:16 Alkaline Phosphatase 84 IU/L (40-130) 12/10/21 22:16 Total Protein 7.5 g/dL (6.6-8.7) 12/10/21 22:16 Albumin 4.8 g/dL (3.5-5.2) 12/10/21 22:16 Globulin 2.7 g/dL (1.3-4.6) 12/10/21 22:16 Salicylates < 0.3 mg/dL (3-10) L 12/10/21 22:16 Acetaminophen < 5.0 ug/mL (10-30) L 12/10/21 22:16 Ethyl Alcohol 23 mg/dL (0-10) H 12/10/21 22:16 Discharge Plan Discharge Patient Disposition: Admitted As Inpatient Admit Provider: Josr Jones Clinical Impression: Acute psychosis Condition: Stable Coding Level of Care Code ED Corporation Lawyer for Chg Fwd Exam Comprehensive
[2021-12-11 06:00] VITALS: BP 121/89; PULSE 76; RESP 18; TEMP 36.4; O2SAT 98
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
[2021-12-11] MEDS: OLANZapine 5 mg ODT PO (11:11)
[2021-12-11] MEDS: acetaminophen 325 mg Tablet 650 MG PO (11:11)
--- NOTE | 2021-12-11 12:39 | PC.NURSE ---
MEDS- REMAINS MOSTLY IN BED WITH EYES CLOSED. NO DISTRESS NOTED. APPROPRIATE WHEN UP. DID EAT AND REPORTED JUST BEING TIRED TODAY. C/O ANXIETY AND PAIN. TOOK PRN MEDS AND GAVE PHARMACY TO OBTAIN CURRENT MED LIST. NOTIFIED AND GAVE NEW ORDERS TO CONTINUE CURRENT MEDS.
[2021-12-11] MEDS: quetiapine 100 mg Tablet PO (12:41)
[2021-12-11] MEDS: pantoprazole DR 40 mg Tablet PO (12:41)
[2021-12-11 13:28] VITALS: BP 117/80; PULSE 120; RESP 16; O2SAT 97
--- NOTE | 2021-12-11 13:39 | PC.NURSE ---
FALL- AT 1318 BANGING NOISE AND A YELL HEARD BY STAFF. STAFF X3 TO PATIENT?S ROOM. PATIENT IN BATHROOM, IN SHOWER. PATIENT STATED HE FELL WHILE SHOWERING. STAFF OPENED BATHROOM DOOR AND VISUALIZED PATIENT STANDING WITH SOAP LATHER OVER ALL OF FACE AND BODY. PATIENT DECLINED ALLOWING STAFF TO ENTER BATHROOM TO ASSESS AT THAT TIME. PATIENT STATED HE WOULD FINISH RINSING OFF THEN NOTIFY STAFF TO ALLOW ASSESSMENT AT THAT TIME. AT 1317 PATIENT DRESSED AND TO NURSES STATION. STATES HE SLIPPED, FELL SIDEWAYS. LANDED STRIKING RIGHT SIDE RIBS. NO REDNESS NOTED, STATES HE IS FINE. WHEN ASKED ABOUT HITTING HEAD, REPORTS THAT HE DID STRIKE RIGHT SIDE OF HEAD, BEHIND EAR LIGHTLY ON TOILET. NO REDNESS, SWELLING, OR ABRASIONS NOTED. VS STABLE AT 117/80 BP, 120 PULSE, AND 97% O2 SATS. PATIENT OX4, NO DEFICITS NOTED. NOTIFIED.
[2021-12-11 14:00] VITALS: BP 117/80; PULSE 100; RESP 17; TEMP 36.6; O2SAT 97
[2021-12-11] MEDS: gabapentin 300 mg Capsule PO (15:00)
[2021-12-11] MEDS: propranolol 20 mg Tablet 10 MG PO (15:00)
[2021-12-11 15:30] LABS: Add Urine Microscopic? YES; Bilirubin Urine 1+ (Negative); Blood Urine Neg (Negative); Glucose Urine UA Norm (Normal); Ketones Urine 1+ (Negative); Leukocyte Esterase Urine Trace (Negative); Nitrate Urine Negative (Negative); Protein Urine Trace (Negative); Specific Gravity, Urine 1.025 (1.005-1.030); Urine Appearance Clear (CLEAR); Urine Color Yellow (Yellow); Urobilinogen Urine 4 mg/dL (Negative); pH Urine 5 (5-7)
[2021-12-11 15:36] LABS: Add Urine Culture? No; Bacteria Urine TRACE /hpf; Mucus Urine 2+ /hpf; Squamous Epithelial Cell Urine 0-4 /hpf (0-5); WBC Urine 0-4 /hpf (0-5)
[2021-12-11] MEDS: neomycin-poly-bacitracin oint 28 gm 1 APPLIC TOPICAL (15:52)
[2021-12-11 16:20] LABS: Amphetamines Screen Urine Positive (Negative); Barbiturates Screen Urine Negative (Negative); Benzodiazepines Screen Urine Positive (Negative); Cocaine Screen Urine Negative (Negative); Opiate Screen Urine Negative (Negative); PCP Screen Urine Negative (Negative); THC Screen Urine Positive (Negative)
[2021-12-11] MEDS: gemfibrozil 600 mg Tablet PO (17:50)
[2021-12-11] MEDS: benztropine 1 mg Tablet PO (17:50)
[2021-12-11 18:53] VITALS: BP 117/80; PULSE 100; RESP 17; TEMP 36.6; O2SAT 97
--- NOTE | 2021-12-11 18:59 | PC.NURSE ---
AMA PT MET WITH . PT IS VOL AND REQUESTING TO LEAVE. ADVISED AND EDUCATED PT ON REASONS HE FEELS PT SHOULD STAY. PT DECLINED AND HAS SIGNED OUT AMA FOR DC. ALL PERSONAL BELONGINGS BEING RETURNED TO PT AT PR AND PT IS CALLING [facility] FOR R[facility] HOME.
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
--- NOTE | 2021-12-13 09:26 | PC.OT ---
OT EVALUATION ORDERS RECEIVED. PATIENT HAS BEEN DISCHARGED PRIOR TO EVALUATION COMPLETED.
== END 2021-12-11 19:45 | disposition home or self-care (01) | DRG 885 ==
LOC: ER 21:50 → NP 12-11 00:25
PROVIDERS: Admitting Provider Psychiatry & Neurology Psychiatry; Emergency Provider Emergency Medicine; PCP Family Medicine Adult Medicine; Visit Provider Psychiatry & Neurology Psychiatry
DX: F25.0 Schizoaffective disorder, bipolar type (principal); M54.12 Radiculopathy, cervical region; M54.17 Radiculopathy, lumbosacral region; J44.9 Chronic obstructive pulmonary disease, unspecified; E78.5 Hyperlipidemia, unspecified; I10 Essential (primary) hypertension; F17.210 Nicotine dependence, cigarettes, uncomplicated; Z91.14 Patient's other noncompliance with medication regimen; F15.90 Other stimulant use, unspecified, uncomplicated; Z79.51 Long term (current) use of inhaled steroids; K29.50 Unspecified chronic gastritis without bleeding
CPT/HCPCS: 80053; 80306; 80307; 81001; 85025; 96372; 99285; J2060; J3486

== ENCOUNTER 2021-12-15 17:41 | Inpatient (IN) | payer MEDICAID, SELFPAY ==
[2021-12-15 17:50] VITALS: BP 119/71; PULSE 89; RESP 17; O2SAT 100
[2021-12-15 18:07] VITALS: BP 156/115; PULSE 94; RESP 22; O2SAT 100
--- NOTE | 2021-12-15 18:07 | CTR_ITS ---
PROCEDURE INFORMATION: Exam: CT Head Without Contrast Exam date and time: 12/15/2021 6:07 PM Age: 51 years old Clinical indication: Altered mental status/memory loss; Additional info: AMS TECHNIQUE: Imaging protocol: Computed tomography of the head without contrast. Radiation optimization: All CT scans at this facility use at least one of these dose optimization techniques: automated exposure control; mA and/or kV adjustment per patient size (includes targeted exams where dose is matched to clinical indication); or iterative reconstruction. COMPARISON: CT head wo con* [id number] 05/29/2017 2:50 AM RADIATION DOSE METRICS: Total DLP (mGy-cm): 829.98 FINDINGS: Brain: Normal. No hemorrhage. Unremarkable white matter. No mass effect. Cerebral ventricles: No ventriculomegaly. Paranasal sinuses: Visualized sinuses are unremarkable. No fluid levels. Mastoid air cells: Visualized mastoid air cells are well aerated. Bones/joints: Unremarkable. No acute fracture. Soft tissues: Unremarkable. CT/CT head wo con* [id number] IMPRESSION: No acute intracranial abnormality.
--- NOTE | 2021-12-15 18:07 | CTR_ITS ---
PROCEDURE INFORMATION: Exam: CT Abdomen And Pelvis With Contrast Exam date and time: 12/15/2021 6:07 PM Age: 51 years old Clinical indication: Abdominal pain; Localized; Right; Additional info: R sided abd pain TECHNIQUE: Imaging protocol: Computed tomography of the abdomen and pelvis with contrast. Radiation optimization: All CT scans at this facility use at least one of these dose optimization techniques: automated exposure control; mA and/or kV adjustment per patient size (includes targeted exams where dose is matched to clinical indication); or iterative reconstruction. Contrast material: OMNI 300; Contrast volume: 95 ml; Contrast route: INTRAVENOUS (IV); COMPARISON: [place] [id number] 05/29/2017 3:03 AM RADIATION DOSE METRICS: Total DLP (mGy-cm): 1455.82 FINDINGS: Liver: Hepatic steatosis. Gallbladder and bile ducts: Normal. No calcified stones. No ductal dilation. Pancreas: Normal. No ductal dilation. Spleen: Normal. No splenomegaly. Adrenal glands: Normal. No mass. Kidneys and ureters: Normal. No hydronephrosis. Stomach and bowel: Prominent fluid in the small bowel without dilation suggestive of an enteritis. Appendix: No evidence of appendicitis. Intraperitoneal space: Unremarkable. No free air. No significant fluid collection. Vasculature: Unremarkable. No abdominal aortic aneurysm. Lymph nodes: Unremarkable. No enlarged lymph nodes. Urinary bladder: Unremarkable as visualized. Reproductive: Unremarkable as visualized. Bones/joints: Unremarkable. No acute fracture. Soft tissues: Small amount of fluid in the right inguinal canal partially visualized, nonspecific. CT/CT abdomen pelvis w con* [id number] IMPRESSION: 1. Prominent fluid in the small bowel without dilation suggestive of an enteritis. 2. Hepatic steatosis. 3. Small amount of fluid in the right inguinal canal partially visualized, nonspecific.
--- NOTE | 2021-12-15 18:09 | W.ED.GENADLT ---
HPI - General Adult General: Chief complaint: Psychiatric Symptoms Stated complaint: PSYCH PT THINKS HE HAS PARASITES Time Seen by Provider: 12/15/21 17:47 History of Present Illness: HPI: [51]yo patient w/ hx of schizophrenia BIBA not taking medication presenting to the ED for On arrival, the patient is AAOx3 and cooperative with my evaluation. Has disorganized thoughts. Patient complains of sensations of parasitosis all over his body and mouth ass well as right-sided abdominal pain. No focal complaints of chest pain, shortness of breath, palpitations, N/V, focal GI/ complaints. Currently denies SI/HI. Onset: unknown Duration: ongoing Location: home Severity: severe Associated symptoms: Deny chest pain, dyspnea, nausea, rash, palpitations or vomiting Review of Systems Const: Denies: fever(s) or chills Eyes: Denies: change in vision ENMT: Denies: mouth pain Card: Denies: chest pain or palpitations Resp: Denies: dyspnea or non-productive cough GI: Reports: abdominal pain (+R sided abd pain); Denies: nausea, vomiting or diarrhea : Denies: dysuria Musc: Denies: extremity pain Skin/Breast: Denies: rash or new lesions Neuro: Reports: other (+parasitosis, hallucations); Denies: weakness in extremities Psych: Reports: other (Normal mood) Al/Lymph: Denies: easy bruising PFSH ED PFSH: Medical History Cannabis dependence, daily use Patient states he uses daily for pain management-reports having a medical marijuana card Cervical disc disorder at C4-C5 level with radiculopathy Chronic low back pain with bilateral sciatica COPD (chronic obstructive pulmonary disease) Encounter to establish care Esophageal stricture Hyperlipidemia Hypertension Nicotine dependence, cigarettes, uncomplicated Prediabetes Psychiatric care Radiculopathy of cervical region Radiculopathy of lumbosacral region Right upper quadrant abdominal pain Schizoaffective disorder, bipolar type Surgical History H/O esophagogastroduodenoscopy (11/24/21) Disimpaction of food bolus History of ankle surgery left History of arthroscopic knee surgery Social History Alcohol intake: former Adopted: Yes History of recent travel: No Physical Exam Const: COMMON NORMALS: alert HENMT: COMMON NORMALS: atraumatic HEAD & SCALP: atraumatic MOUTH: moist mucous membranes not abnormal Eye: COMMON NORMALS: EOMs intact bilaterally and conjunctivae normal CONJUNCTIVA: Yes conjunctivae normal Neck/C-Spine: COMMON NORMALS: full ROM and supple Resp: COMMON NORMALS: normal respiratory effort and clear to auscultation bilaterally AUSCULTATION: clear to auscultation bilaterally Cardio: COMMON NORMALS: regular rate RATE: regular rate GI: COMMON NORMALS: Soft to palpation and non-tender PALPATION: Yes Soft to palpation OTHER: No focal TTP. NO guarding rebound, guarding, rigidity. No CVA tenderness to percussion. Neg Wang/Neg McBurney's point tenderness, no suprabupic tenderness to palpation. Extremity: COMMON NORMALS: full ROM Neuro: SENSORIUM/ORIENTATION: Yes alert MOTOR EXAM: No Abnormal motor strength present and Other motor observations present (no focal motor deficits) OTHER: Motor exam grossly intact, following commands Psych: OTHER: +disorganized thoughts Course Vital Signs: Vital signs: Vital Signs Pulse Rate 101 H 12/15/21 20:31 Respiratory Rate 18 12/15/21 21:06 Blood Pressure 125/79 12/15/21 20:31 Pulse Oximetry 98 12/15/21 20:31 MDM - General Adult Medical Decision Making [51]yo patient w/ hx of schizophrenia presenting for R side abdominal pain, sensation of parasites on body. HDS, exam within normal limit Thoughts are non-linear and not organized, and the patient has no AH/VH, or HI. Clinically the patient displays no overt toxidrome; they are well appearing, with low suspicion for toxic ingestion given history and exam. Symptoms unlikely 2/2 anemia, hypothyroidism, infection, or ICH. Workup: CBC, CMP, Lipase, salicylate/tylenol, TSH/free T4, UA, CT head, XR chest, CT abd+pelvis without contrast Lab findings: wnl, imaging studies wnl [7:00pm] On reassessment, labs and workup wnl. Patient is hemodynamically stable with no acute medical complaints. Case discussed with psychiatric provider Dr. Jones at [facility] psych inpatient with recommendation for admission. No longer complains of abdominal pain. CT imaging of the abdomen showed enteritis. Patient is able to tolerate p.o. without any difficulty. No suspicion for any acute intraabdominal processes. Disposition: Psych Lab Data : 12/15/21 19:33 12/15/21 19:33 Radiology Impressions Abdomen/Pelvis CT 12/15/21 18:07 IMPRESSION: 1. Prominent fluid in the small bowel without dilation suggestive of an enteritis. 2. Hepatic steatosis. 3. Small amount of fluid in the right inguinal canal partially visualized, nonspecific. Head CT 12/15/21 18:07 IMPRESSION: No acute intracranial abnormality. Laboratory Results WBC 4.7 10^3/uL (4.0-10.0) 12/15/21 19: RBC 5.50 10^6/uL (4.1-5.3) H 12/15/21 19: Hgb 17.0 g/dL (11.7-16.6) H 12/15/21 19: Hct 50.8 % (42.0-52.0) 12/15/21: MCV 92.4 fl (80-94) 12/15/21 19: MCH 30.9 pg (28.0-34.0) 12/15/21 19: MCHC 33.5 g/dL (30.0-36.0) 12/15/21: RDW 13.4 % (12.1-15.1) 12/15/21 19: Plt Count 218 10^3/cmm (130-400) 12/15/21 19: MPV 10.3 fL (7.4-10.4) 12/15/21 19: Neut % (Auto) 28.0 % 12/15/21 19: Lymph % (Auto) 58.8 % 12/15/21 19:33 Holmes % (Auto) 7.9 % 12/15/21 19: Eos % (Auto) 4.0 % 12/15/21: Baso % (Auto) 1.3 % 12/15/21 19: Neut # (Auto) 1.32 10^3/uL (1.8-7.7) L 12/15/21 19: Lymph # (Auto) 2.8 10^3/uL (0.8-4.8) 12/15/21 19:33 Holmes # (Auto) 0.4 10^3/uL (0.2-0.9) 12/15/21 19:33 Eos # (Auto) 0.2 10^3/uL (0.0-0.8) 12/15/21 19:33 Baso # (Auto) 0.1 10^3/uL (0.0-0.1) 12/15/21 19:33 Nucleated RBC % (auto) 0 % 12/15/21 19: Nucleated RBCs # 0.0 /100WBC 12/15/21 19:33 Sodium 140 mmol/L (136-145) 12/15/21 19:33 Potassium 4.0 mmol/L (3.5-5.1) 12/15/21 19: Chloride 101 mmol/L (98-107) 12/15/21 19: Carbon Dioxide 26 mmol/L (22-29) 12/15/21:33 Anion Gap 17.0 (5-19) 12/15/21 19: BUN 10 mg/dL (6-20) 12/15/21 19: Creatinine 0.7 mg/dL (0.7-1.2) 12/15/21 19:33 GFR Calculation 119.4 mL/min (90-130) 12/15/21: Glucose 92 mg/dL (65-115) 12/15/21 19: Calculated Osmolality 289 mOsm/kg (285-295) 12/15/21: Calcium 10.4 mg/dL (8.5-10.5) 12/15/21 19: TSH 0.83 uIU/mL (0.27-4.20) 12/15/21 19: Free T4 1.07 ng/dL (0.82-1.77) 12/15/21 19:33 Salicylates 1.0 mg/dL (3-10) L 12/15/21: Acetaminophen < 5.0 ug/mL (10-30) L 12/15/21 19:33 Imaging Data Other Imaging: Radiologist's impression: [address] [place] [address] CT Scan Report Signed Patient: Marty Rosas Unit #: [id number] : 1970 Age/Sex: 51 / M ADM Date: 12/15/21 Loc: ER Room/Bed: Attending Dr: Ordering Provider/Ordering MD: Debora Mohan MD Date of Service: 12/15/21 Procedure(s): CT head wo con* [id number] Accession Number(s): [id number] Report Number: [id number] PROCEDURE INFORMATION: Exam: CT Head Without Contrast Exam date and time: 12/15/2021 6:07 PM Age: 51 years old Clinical indication: Altered mental status/memory loss; Additional info: AMS TECHNIQUE: Imaging protocol: Computed tomography of the head without contrast. Radiation optimization: All CT scans at this facility use at least one of these dose optimization techniques: automated exposure control; mA and/or kV adjustment per patient size (includes targeted exams where dose is matched to clinical indication); or iterative reconstruction. COMPARISON: CT head wo con* [id number] 05/29/2017 2:50 AM RADIATION DOSE METRICS: Total DLP (mGy-cm): 829.98 FINDINGS: Brain: Normal. No hemorrhage. Unremarkable white matter. No mass effect. Cerebral ventricles: No ventriculomegaly. Paranasal sinuses: Visualized sinuses are unremarkable. No fluid levels. Mastoid air cells: Visualized mastoid air cells are well aerated. Bones/joints: Unremarkable. No acute fracture. Soft tissues: Unremarkable. CT/CT head wo con* [id number] IMPRESSION: No acute intracranial abnormality. ? Dictated By: Kayden Cordon MD Signed By: Kayden Cordon MD Signed Date/Time: 12/15/212100 DD/ [address] [address] [address] Scan Report Signed Patient: Marty Rosas Unit #: [id number] : 1970 Age/Sex: 51 / M ADM Date: 12/15/21 Loc: ER Room/Bed: Attending Dr: Ordering Provider/Ordering MD: Debora Mohna MD Date of Service: 12/15/21 Procedure(s): CT abdomen pelvis w con* [id number] Accession Number(s): [id number] Report Number: [id number] PROCEDURE INFORMATION: Exam: CT Abdomen And Pelvis With Contrast Exam date and time: 12/15/2021 6:07 PM Age: 51 years old Clinical indication: Abdominal pain; Localized; Right; Additional info: R sided abd pain TECHNIQUE: Imaging protocol: Computed tomography of the abdomen and pelvis with contrast. Radiation optimization: All CT scans at this facility use at least one of these dose optimization techniques: automated exposure control; mA and/or kV adjustment per patient size (includes targeted exams where dose is matched to clinical indication); or iterative reconstruction. Contrast material: OMNI 300; Contrast volume: 95 ml; Contrast route: INTRAVENOUS (IV);? COMPARISON: [place] [id number] 05/29/2017 3:03 AM RADIATION DOSE METRICS: Total DLP (mGy-cm): 1455.82 FINDINGS: Liver: Hepatic steatosis. Gallbladder and bile ducts: Normal. No calcified stones. No ductal dilation. Pancreas: Normal. No ductal dilation. Spleen: Normal. No splenomegaly. Adrenal glands: Normal. No mass. Kidneys and ureters: Normal. No hydronephrosis. Stomach and bowel: Prominent fluid in the small bowel without dilation suggestive of an enteritis. Appendix: No evidence of appendicitis. Intraperitoneal space: Unremarkable. No free air. No significant fluid collection. Vasculature: Unremarkable. No abdominal aortic aneurysm. Lymph nodes: Unremarkable. No enlarged lymph nodes. Urinary bladder: Unremarkable as visualized. Reproductive: Unremarkable as visualized. Bones/joints: Unremarkable. No acute fracture. Soft tissues: Small amount of fluid in the right inguinal canal partially visualized, nonspecific. CT/CT abdomen pelvis w con* [id number] IMPRESSION: 1. Prominent fluid in the small bowel without dilation suggestive of an enteritis. 2. Hepatic steatosis. 3. Small amount of fluid in the right inguinal canal partially visualized, nonspecific. ? Dictated By: Kayden Cordon MD Signed By: Kayden Cordon MD Signed Date/Time: 12/15/212102 DD/ 06 Discharge Plan Discharge Condition: Stable Prescriptions: No Action fluoxetine 40 mg capsule 40 mg PO QAM Qty: 90 2RF Rx Instructions: Take one capsule every morning quetiapine 100 mg tablet 100 mg PO QAM Qty: 90 2RF Rx Instructions: Take one tablet every morning benztropine 1 mg tablet 1 mg PO BID Qty: 180 2RF Rx Instructions: Take one tablet in morning and bedtime gemfibrozil 600 mg tablet 600 mg PO BID 0RF gabapentin 300 mg capsule 300 mg PO TID 0RF Rx Instructions: TAKE 1 CAPSULE BY MOUTH THREE TIMES A DAY omeprazole 20 mg capsule,delayed release(DR/EC) 20 mg PO DAILY 0RF albuterol sulfate [ProAir HFA] 90 mcg/actuation HFA aerosol inhaler 180 mcg inhalation DIRECTED PRN (Reason: Shortness Of Breath) 0RF Rx Instructions: EVERY 8 HOURS NEEDED propranolol 10 mg tablet 10 mg PO TID 0RF Rx Instructions: TAKE 1 TABLET BY MOUTH THREE TIMES A DAY Seroquel 300 mg tablet 300 mg PO BEDTIME 0RF Rx Instructions: Take one tablet at bedtime cyproheptadine 4 mg tablet 4 mg PO BEDTIME 0RF Rx Instructions: Take one tablet at bedtime Referrals: Jasson Torres MD [Primary Care Provider] - Coding Level of Care Code ED [employer]er for Chg Fwd Exam Comprehensive
--- NOTE | 2021-12-15 18:58 | PC.PHAR ---
pt states he has been out of his meds for awhile . Pt verified medications are the correct meds he used to take
[2021-12-15] MEDS: LORazepam 2 mg Tablet PO (19:29)
[2021-12-15 19:41] LABS: Basophils # 0.1 10^3/uL (0.0-0.1); Basophils % 1.3 %; Eosinophils # 0.2 10^3/uL (0.0-0.8); Hematocrit 50.8 % (42.0-52.0); Lymphocytes # 2.8 10^3/uL (0.8-4.8); Lymphocytes % 58.8 %; Mean Corpuscular HGB Conc 33.5 g/dL (30.0-36.0); Mean Corpuscular Hemoglobin 30.9 pg (28.0-34.0); Mean Corpuscular Volume 92.4 fl (80-94); Mean Platelet Volume 10.3 fL (7.4-10.4); Monocytes # 0.4 10^3/uL (0.2-0.9); Monocytes % 7.9 %; Neutrophils # 1.32 10^3/uL (1.8-7.7); Nucleated Red Blood Cells % 0 %; Platelet Count 218 10^3/cmm (130-400); Red Cell Distribution Width 13.4 % (12.1-15.1); White Blood Count 4.7 10^3/uL (4.0-10.0)
[2021-12-15 20:19] LABS: Blood Urea Nitrogen 10 mg/dL (6-20); Calcium 10.4 mg/dL (8.5-10.5); Carbon Dioxide 26 mmol/L (22-29); Chloride 101 mmol/L (98-107); Glomerular Filtration Rate 119.4 mL/min (90-130); Glucose 92 mg/dL (65-115); Osmolality Calculated 289 mOsm/kg (285-295); Sodium 140 mmol/L (136-145); Thyroid Stimulating Hormone 0.83 uIU/mL (0.27-4.20)
[2021-12-15 20:20] LABS: Acetaminophen < 5.0 ug/mL (10-30)
[2021-12-15] MEDS: iohexol 300 mg/mL 100 mL Btl IV (20:27)
[2021-12-15] MEDS: sodium chloride 0.9% 1,000 ML 999 ML IV (20:28)
[2021-12-15 20:31] VITALS: BP 125/79; PULSE 101; RESP 18; O2SAT 98
--- NOTE | 2021-12-15 21:05 | PC.NURSE ---
pt resting quietly eyes closed sitter at bedside no distress noted at this time
[2021-12-15 21:06] VITALS: RESP 18
--- NOTE | 2021-12-15 21:08 | PC.NURSE ---
pt resting sitter at bedside
[2021-12-15 21:35] LABS: Free T4 Free Thyroxine 1.07 ng/dL (0.82-1.77)
[2021-12-15 22:12] VITALS: BP 99/44; RESP 20; O2SAT 98
[2021-12-15 23:29] VITALS: BP 115/65; PULSE 80; RESP 20; TEMP 36.8; O2SAT 100
[2021-12-15 23:48] LABS: Add Urine Microscopic? NO; Charge for UA Resulting for Rev
[2021-12-15] MEDS: trazodone 50 mg Tablet PO (23:53)
[2021-12-15 23:56] LABS: Bilirubin Urine 1+ (Negative); Blood Urine Neg (Negative); Glucose Urine UA Norm (Normal); Ketones Urine Negative (Negative); Leukocyte Esterase Urine Negative (Negative); Nitrate Urine Negative (Negative); Protein Urine Neg (Negative); Urine Appearance Clear (CLEAR); Urine Color Yellow (Yellow); Urobilinogen Urine 12 mg/dL (Negative); pH Urine 7 (5-7)
[2021-12-16 00:04] LABS: Amphetamines Screen Urine Positive (Negative); Barbiturates Screen Urine Negative (Negative); Benzodiazepines Screen Urine Positive (Negative); Cocaine Screen Urine Negative (Negative); Opiate Screen Urine Negative (Negative); PCP Screen Urine Negative (Negative); THC Screen Urine Positive (Negative)
--- NOTE | 2021-12-16 02:54 | PC.ADMIT ---
Admission Note:HPI: [51]yo patient w/ hx of schizophrenia BIBA not taking medication presenting to the ED for On arrival, the patient is AAOx3 and cooperative with my evaluation. Has disorganized thoughts. Patient complains of sensations of parasitosis all over his body and mouth ass well as right-sided abdominal pain. No focal complaints of chest pain, shortness of breath, palpitations, N/V, focal GI/ complaints. Currently denies SI/HI. Patient presents to the unit pretty calm and cooperative. He is very thirsty and hungry. Patient tells the CHEMICAL UNIT OPERATORTerence Whitaker about the bugs on his skin but when assessed by this RN he reports his significant other breaking up with him, that his 10 phones have all been hacked with 362 apps, and his camper on someone else?s land has no water or heat. The patient,Marty Rosas,51 y/o, was given written information regarding hospital policies, unit procedures and contact persons. . Vital Signs - 8 hr 12/15/21 20:31 12/15/21 21:06 12/15/21 22:12 Temperature Pulse Rate 101 H Respiratory Rate 18 18 20 H Blood Pressure 125/79 99/44 Pulse Oximetry 98 98 12/15/21 23:29 Temperature 98.2 F Pulse Rate 80 Respiratory Rate 20 H Blood Pressure 115/65 Pulse Oximetry 100
[2021-12-16 06:00] VITALS: BP 147/67; PULSE 94; RESP 20; TEMP 36.9; O2SAT 98
[2021-12-16] MEDS: acetaminophen 325 mg Tablet 650 MG PO ×2 (06:01→09:49)
--- NOTE | 2021-12-16 13:56 | W.PM.NPUH&PS ---
Providers/Chief Complaint Admitting Physician: Josr Jones MD Primary Care Provider: Jasson Torres MD Chief Complaint: PSYCH PT THINKS HE HAS PARASITES HPI NPU History of Present Illness Marty Rosas is a 51-year-old male admitted to the emergency department with the following report: HPI: [51]yo patient w/ hx of schizophrenia BIBA not taking medication presenting to the ED for On arrival, the patient is AAOx3 and cooperative with my evaluation.? Has disorganized thoughts.? Patient complains of sensations of parasitosis all over his body and mouth ass well as right-sided abdominal pain.? No focal complaints of chest pain, shortness of breath, palpitations, N/V, focal GI/ complaints. Currently denies SI/HI. His ex- filled out an affidavit which states Eduardo is diagnosed schizoaffective disorder. He has had a couple of dramatic experiences since August. Resulting in him starting to drink and do methamphetamine. He also quit his meds. He is having delusions. He believes that he has parasites or worms under his skin and all through his body. He has burning himself trying to burn the worms. He also believes he is being targeted of a conspiracy against him. He sees drones everywhere. He has torn his camper apart thinking it is infested. He thinks that people are moving his camper and that there is a magnet that is bending the frame. He has made verbal threats against people where his camper resides. He sees people coming through the ferris. He is a danger to himself and others. He is in stress unit now just do not want him to sign himself out. He was admitted to the neuropsychiatry for definitive treatment of these issues. He says he is stressed out because everything in his life is messed up. He is trying to move but cannot. He says there are 20 people who are trying to obstruct what ever he does. He says even when he leaves his trailer for a few minutes people come in and take things and move things around. He went to the store to buy some cigarettes and some beer and when he came back his trailer had parasites which are now all over him. He says that he can see that crawling on his skin. He has many cuts and places on his skin. Which he has caused by trying to get rid of these parasites. He says that he put them in a sandwich bag and he tried to show them to people but they thought they were breadcrumbs. He says that he is going to put things on the skin people who have not done this to him that water and soap on takeoff. He says that he is going to beat them up and make them sorry that they have done these things to him. He says that he has not been able to sleep because he is trying to sleep people are walking across his growth or knocking on the [place] and making noise in various ways. He says that while he is here they are free to do what ever they want to do stuff and they will ruin everything that he has. He said that the primary suspects are the owners of the land where he is living and his ex- who lives right across the street. He said that he needed to go home. When told that it was not safe to let him go he said that he was going to beat someone up here. His drug screen was positive for methamphetamine, marijuana and benzodiazepines. He was just here a few days ago with the following admission note. 51-year-old male with a long history of psychiatric illness presents through the front door.? In the waiting room, he is restless, up walking around.? He shouts.? When brought back, he complains about bugs crawling out of his body.? He states the bugs are reproducing inside of them and hatching.? He shows us a bag of bread crumbs and tells us these are what is growing inside him.? He does also state that he has been off of his psychiatric medication, and would like to go back on his medication.? He has been self-medicating with drugs, likely amphetamine.? He denies any suicidality or homicidality, but does wish treatment.? He also believes his girlfriend is out to get him . complaint: altered mental status and other Onset (ago): day(s) Duration: constant and getting worse History of same: Yes Relieving factors: none Exacerbating factors: none Context: recent alcohol abuse and recent drug abuse Associated psychiatric symptoms: racing thoughts and delusions Associated symptoms: Reports visual hallucinations and delusions; Deny auditory hallucinations, homicidal ideation or suicidal ideation He was admitted to the neuropsychiatric unit for definitive treatment of those issues. The patient presents today reporting that he doesn?t know how many times he has been admitted to a psychiatric sahni nor his history of outpatient services though he did identify that he saw someone at [facility] and according to our records, the last visit that he had over at [facility] was September 08, 2021 and the first records in the system is an inpatient stay back in 2006. It appears that he has had 15 inpatient hospitalizations, the last one being in 2018 at this hospital at least. He is not currently taking any medications, or at the very least would not discuss medications and suggested that he is not taking them with the best accuracy but says that he does take them a lot of the time, including Seroquel, Neurotin, and Prozac. He is a fairly poor historian and focused on his likely paranoid and delusional thinking for most of the interview. He could be pulled away for some factual information as he did report smoking a pack of cigarettes every 2 to 3 days, having alcohol rarely, having his medical marijuana card, and denying other illicit drug use though he did seem to be having symptoms that would be consistent with methamphetamine use. The ED had not obtained a UDS and so we did obtain a UDS which was positive for amphetamines, marijuana and benzodiazepines. He reports he has never been to a rehab facility, never had a DUI but may have had some marijuana possessions charges. He spent most of the time talking about things like his phone being hacked and going down rabbit holes like that, but the echo of his story was that his girlfriend of 8 years, out of the blue, said that she was done with their relationship; he has a camper and she stated it would be fine if he stayed in the camper on the property but he had to give his keys to the house back which started a major confrontation with him being upset about losing the relationship and going from an equal partner in the house to having to make sure she is awake to come in and use the bathroom. So he reports he moved all of his stuff across the street, back in September of 2021. He reports that the next week his father so he had to go to [place] which he reports was not a great trip as his family has all kinds of tough entanglements and conflicts with one another. He was mostly focused on feeling like, since he has moved into his camper, feeling like people have been disconnecting things, vandalizing, burglarizing, and now the manager floor of the property that he moved to across the street says that he needs to leave so he is trying to get his stuff together to do that. He believes that someone also has infected his area around his home, his home as well as the place inside it with some parasite which has caused him to have all these bites which resemble pick harris from methamphetamine addiction but he believes fully to be parasites and refers to as such. He reports he has had one suicide in the past but denies self-injurious behaviors, He doesn?t believe anything is wrong with him and denies any need for medication changes. Ultimately, he wanted to discharge and we discussed the fact that it was our assessment that he needed to stabilize and needed to stay. He, however, was very clear that he had no intention to hurt himself or anyone else and that it was supposed to rain so he needed to go collect his stuff so he doesn?t lose everything. We discussed the risks, benefits and alternatives of us getting the UDS which had not been back at this time, and that after getting the UDS we would make some assessment about whether it was safe to allow him to leave against medical advice and he understood and agreed to proceed as is documented in this note. Meds NPU Home Medications Medication Instructions Recorded Confirmed Last Taken Type benztropine 1 mg tablet 1 mg PO BID #180 tab 09/08/21 12/15/21 12/08/21 Rx fluoxetine 40 mg capsule 40 mg PO QAM #90 cap 09/08/21 12/15/21 12/08/21 Rx quetiapine 100 mg tablet 100 mg PO QAM #90 tab 09/08/21 12/15/21 12/08/21 Rx albuterol sulfate 90 mcg/actuation 180 mcg INHALATION DIRECTED PRN 12/11/21 12/15/21 Unknown History aerosol inhaler (ProAir HFA) gabapentin 300 mg capsule 300 mg PO TID 12/11/21 12/15/21 12/08/21 History gemfibrozil 600 mg tablet 600 mg PO BID 12/11/21 12/15/21 12/08/21 History omeprazole 20 mg capsule,delayed 20 mg PO DAILY 12/11/21 12/15/21 12/08/21 History release propranolol 10 mg tablet 10 mg PO TID 12/11/21 12/15/21 12/08/21 History cyproheptadine 4 mg tablet 4 mg PO BEDTIME 12/15/21 12/15/21 Unknown History quetiapine 300 mg tablet (Seroquel) 300 mg PO BEDTIME 12/15/21 12/15/21 Unknown History Allergies Allergy/AdvReac Type Severity Reaction Status Date / Time haloperidol [From Haldol] Allergy ADV-Weaknes Verified 12/16/21 14:07 s chlorpromazine AdvReac Intermediate ADR-Seizure Verified 04/08/21 13:11 [From Thorazine] hydroxyzine [From Vistaril] AdvReac Intermediate ADR-Anxiety Verified 04/08/21 13:11 PFSH NPU PFSH: Medical History Cannabis dependence, daily use Patient states he uses daily for pain management-reports having a medical marijuana card Cervical disc disorder at C4-C5 level with radiculopathy Chronic low back pain with bilateral sciatica COPD (chronic obstructive pulmonary disease) Encounter to establish care Esophageal stricture Hyperlipidemia Hypertension Nicotine dependence, cigarettes, uncomplicated Prediabetes Psychiatric care Radiculopathy of cervical region Radiculopathy of lumbosacral region Right upper quadrant abdominal pain Schizoaffective disorder, bipolar type Surgical History H/O esophagogastroduodenoscopy (11/24/21) Disimpaction of food bolus History of ankle surgery left History of arthroscopic knee surgery Social History Alcohol intake: former Adopted: Yes History of recent travel: No Mental Status Exam MSE Comments: This is a 51-year-old appropriate weight male who appears approximately his stated age and is been moderate distress. He is poorly groomed with several days' growth of wells. He is dressed in hospital scrubs. psychomotor activity mildly increased Speech is at a regular rate and rhythm, increased volume, good articulation, mildly pressured. Alert, oriented X3 Attention and concentration appears to be normal. Memory is appears to be intact both self-employed tested Mood is angry. Affect is dysphoric and angry. Thought process is logical and goal-directed. He sees bugs and worms crawling on his skin and crawling under his skin. When he is trying to sleep he hears people walking across his roof and making noise outside of his trailer he believes that people are coming into his camper and moving things and infesting his camper with parasites. He believes there are about 20 people were trying to keep him from progressing. He denies suicidal ideation. He does have thoughts and possibly plans to harm the people doing this to him. Fund of knowledge is average to below average. Insight and judgment appear to be severely impaired. Impulse control is impaired. Vitals/I&O/Wt Last Vital Signs Temp 98.4 F 12/16/21 06:00 Pulse 94 12/16/21 06:00 Resp 20 H 12/16/21 06:00 BP 147/67 12/16/21 06:00 Pulse Ox 98 12/16/21 06:00 Weight last 48 hrs Weight 74.843 kg Data NPU : 12/15/21 19:33 12/15/21 19:33 A&P Assessment and plan (1) Acute psychosis: Status: Acute (2) Cannabis dependence, daily use: Status: Chronic (3) Schizoaffective disorder, bipolar type: Status: Chronic (4) Methamphetamine abuse: Status: Acute Plan This is a 59-year-old male with a history of methamphetamine induced psychosis as well as schizoaffective disorder who comes in psychotic and also having homicidal thoughts about the people who are doing things to him. Plan: 1. Will observe only on PRN medications for now. 2. Continue every 15 minute checks for safety. 3. Encourage individual, group and milieu therapies. 4. Encourage sober living treatment after discharge at the highest level of care to which he is willing to commit. 5. We will monitor for safety for himself in the community prior to discharge. Involuntary Hold Information 96 Hour Hold: 96 Hour Involuntary Admission: No Attestations NPU Medical Necessity Statement*: inpatient hospitalization is medically necessary and the clinically appropriate intervention at this time. We will initiate medications and make changes as indicated. He will be in the hospital for over 2 midnights. Likely length of stay 4-6 days Coding Level of Care Code Acute Facilities Project Manager for Radha Charles Diagnoses Acute psychosis F23 Cannabis dependence, daily use F12.20 Schizoaffective disorder, bipolar type F25.0 Methamphetamine abuse F15.10
[2021-12-16] MEDS: gabapentin 300 mg Capsule PO ×2 (14:12→20:42)
[2021-12-16] MEDS: LORazepam 2 mg Tablet PO (14:13)
[2021-12-16] MEDS: propranolol 20 mg Tablet 10 MG PO ×2 (14:13→20:41)
[2021-12-16] MEDS: diphenhydrAMINE 50 mg Capsule PO (14:13)
[2021-12-16] MEDS: OLANZapine 5 mg ODT PO (14:57)
--- NOTE | 2021-12-16 16:44 | PC.NURSE ---
96 hr hold papers were not served to pt in ER in a timely manner, x2 more affidavits received today, new 96 hr hold paperwork done per Dr Barrios, pt served paperwork in a timely manner
[2021-12-16] MEDS: gemfibrozil 600 mg Tablet PO (18:13)
[2021-12-16] MEDS: benztropine 1 mg Tablet PO (18:13)
[2021-12-16] MEDS: quetiapine 300 mg Tablet PO (20:41)
[2021-12-16] MEDS: trazodone 50 mg Tablet PO (20:41)
[2021-12-16 22:00] VITALS: BP 146/67; PULSE 85; RESP 16; O2SAT 96
[2021-12-17] MEDS: quetiapine 100 mg Tablet PO (05:56)
[2021-12-17] MEDS: fluoxetine 20 mg Capsule 40 MG PO (05:56)
[2021-12-17] MEDS: acetaminophen 325 mg Tablet 650 MG PO ×2 (06:14→12:28)
[2021-12-17] MEDS: ibuprofen 600 mg Tablet PO (06:15)
[2021-12-17] MEDS: gabapentin 300 mg Capsule PO ×3 (08:15→20:14)
[2021-12-17] MEDS: propranolol 20 mg Tablet 10 MG PO ×3 (08:15→20:10)
[2021-12-17] MEDS: benztropine 1 mg Tablet PO ×2 (08:16→17:03)
[2021-12-17] MEDS: pantoprazole DR 40 mg Tablet PO (08:16)
[2021-12-17] MEDS: gemfibrozil 600 mg Tablet PO ×2 (08:16→17:03)
[2021-12-17] MEDS: OLANZapine 5 mg ODT PO (12:28)
[2021-12-17] MEDS: ibuprofen 800 mg tablet PO (12:28)
[2021-12-17 13:47] VITALS: BP 111/81; PULSE 75; RESP 17; TEMP 36.7; O2SAT 100
--- NOTE | 2021-12-17 14:00 | P.NPUPN_ITS ---
Subjective NPU Subjective: He found was up at the nursing station asking for pain medication. He told me about all the accidents that he has had including playing football all my life . He said Tylenol and Motrin were for children. It has been explained to him many times that he would like to have a current prescription for narcotics we do not give them. He need to have an outpatient provider who has decided that he needed and will continue to provide it when he leaves. He said that he talked with his ex on the phone last night. He had left his code outside. She went over and put his coat under the awning. He says that she should not have gone over there. He did not say anything about her going into the trailer. I said well at least a year trailer has not been destroyed yet . he said yet is the most important word in that sentence. He again said that he does not need to be here and this is all bulshit . I reminded him that he made threats about hurting people yesterday. He asked me what I was talking about and I repeated what he said. He said those are just words . Mental Status Exam MSE Comments: This is a 51-year-old appropriate weight male who appears approximately his stated age and is been moderate distress. He is poorly groomed with several days' growth of wells. He is dressed in hospital scrubs. psychomotor activity mildly increased Speech is at a regular rate and rhythm, increased volume, good articulation, mildly pressured. Alert, oriented X3 Attention and concentration appears to be normal. Memory is appears to be intact both self-employed tested Mood is angry. Affect is dysphoric and angry. Thought process is logical and goal-directed. He sees bugs and worms crawling on his skin and crawling under his skin. When he is trying to sleep he hears people walking across his roof and making noise outside of his trailer he believes that people are coming into his camper and moving things and infesting his camper with parasites. He believes there are about 20 people were trying to keep him from progressing. He denies suicidal ideation. He does have thoughts and possibly plans to harm the people doing this to him. Fund of knowledge is average to below average. Insight and judgment appear to be severely impaired. Impulse control is impaired. Cognition: Level of Consciousness: Awake, Alert and Appropriate Patient Cognition Impaired: No Ability to Follow Directions: Good Patient Orientation (long list): Person Comprehension Ability: No Impairment Hallucination Type: None Affect: Affect Description: Appropriate and Calm Behavior: Patient Behavior: Appropriate and Cooperative Speech Pattern: Appropriate and Clear Vitals/I&O/Wt Last Vital Signs Temp 98.0 F 12/17/21 13:47 Pulse 75 12/17/21 13:47 Resp 17 12/17/21 13:47 BP 111/81 12/17/21 13:47 Pulse Ox 100 12/17/21 13:47 Weight last 48 hrs Weight 74.843 kg Data NPU : 12/15/21 19:33 12/15/21 19:33 A&P Assessment and plan (1) Acute psychosis: Status: Acute (2) Cannabis dependence, daily use: Status: Chronic (3) Schizoaffective disorder, bipolar type: Status: Chronic (4) Methamphetamine abuse: Status: Acute Plan This is a 59-year-old male with a history of methamphetamine induced psychosis as well as schizoaffective disorder who comes in psychotic and also having homicidal thoughts about the people who are doing things to him. Plan: 1. Will continue Seroquel 100 mg in the morning and 300 mg at bedtime. He has had 2 doses of Zyprexa Zydis. Continue Prozac 40 mg daily 2. Continue every 15 minute checks for safety. 3. Encourage individual, group and milieu therapies. 4. Encourage sober living treatment after discharge at the highest level of care to which he is willing to commit. 5. We will monitor for safety for himself in the community prior to discharge. Involuntary Hold Information 96 Hour Hold: 96 Hour Involuntary Admission: No Attestations NPU Medical Necessity Statement*: Inpatient hospitalization is medically necessary and the clinically appropriate intervention at this time. We will initiate medications and make changes as indicated. Coding Level of Care Code Acute Financial Management Consultant for Radha Charles Diagnoses Acute psychosis F23 Cannabis dependence, daily use F12.20 Schizoaffective disorder, bipolar type F25.0 Methamphetamine abuse F15.10
[2021-12-17 19:29] VITALS: BP 103/63; PULSE 72; RESP 18; TEMP 36.8; O2SAT 97
[2021-12-17] MEDS: quetiapine 300 mg Tablet PO (20:13)
[2021-12-17 22:00] VITALS: BP 103/63; PULSE 72; RESP 18; TEMP 36.8; O2SAT 97
[2021-12-18] MEDS: OLANZapine 5 mg ODT PO ×3 (03:57→14:26)
--- NOTE | 2021-12-18 05:30 | PC.NURSE ---
0357 Patient is at the nurse's station agitated because he is tired of being waited on by us and he can't get what he wants. Zyprexa 5 mg po given for agitation. Medication was effective. Patient is resting quietly.
[2021-12-18 06:00] VITALS: BP 97/61; PULSE 72; RESP 18; TEMP 36.4; O2SAT 97
[2021-12-18] MEDS: fluoxetine 20 mg Capsule 40 MG PO (06:06)
[2021-12-18] MEDS: quetiapine 100 mg Tablet PO (06:07)
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
[2021-12-18] MEDS: pantoprazole DR 40 mg Tablet PO (08:13)
[2021-12-18] MEDS: propranolol 20 mg Tablet 10 MG PO ×3 (08:13→20:42)
[2021-12-18] MEDS: gemfibrozil 600 mg Tablet PO ×2 (08:13→17:14)
[2021-12-18] MEDS: benztropine 1 mg Tablet PO ×2 (08:13→17:15)
[2021-12-18] MEDS: gabapentin 300 mg Capsule PO ×3 (08:14→20:41)
[2021-12-18] MEDS: quetiapine 300 mg Tablet PO ×2 (08:14→20:41)
--- NOTE | 2021-12-18 09:31 | PC.NURSE ---
AM assessment Patient in day room with assessment. He denies SI, HI or hallucinations. He is alert and oriented in all aspects. He is noted to have an anxious, guarded affect. Hr regular with ppp x 2. No edema noted. Lungs clear with breathing even and nonlabored. Bowel sounds active in all quads. Denies pain with urination. Does c/o back pain 5/10. Skin is warm and dry.
[2021-12-18] MEDS: ibuprofen 800 mg tablet PO (11:41)
[2021-12-18] MEDS: acetaminophen 325 mg Tablet 650 MG PO (11:42)
--- NOTE | 2021-12-18 12:57 | PC.NURSE ---
Prn note Patient resting comfortably after receiving ibuprofen/tylenol for back pain.
[2021-12-18 14:00] VITALS: BP 102/64; PULSE 91; RESP 16; O2SAT 98
--- NOTE | 2021-12-18 14:29 | PC.NURSE ---
PATIENT REFUSED TO LET THIS DRAWER FITTER TAKE TEMP WHILE TAKING 1400 VITALS.
[2021-12-19] MEDS: ibuprofen 800 mg tablet PO (01:13)
[2021-12-19] MEDS: acetaminophen 325 mg Tablet 650 MG PO (04:31)
[2021-12-19 05:55] VITALS: BP 106/74; PULSE 88; RESP 17; TEMP 36.6; O2SAT 98; BMI 23.5
[2021-12-19] MEDS: fluoxetine 20 mg Capsule 40 MG PO (06:10)
[2021-12-19] MEDS: quetiapine 100 mg Tablet PO (06:10)
[2021-12-19] MEDS: OLANZapine 5 mg ODT PO (07:00)
[2021-12-19] MEDS: benztropine 1 mg Tablet PO (08:08)
[2021-12-19] MEDS: pantoprazole DR 40 mg Tablet PO (08:09)
[2021-12-19] MEDS: propranolol 20 mg Tablet 10 MG PO (08:09)
[2021-12-19] MEDS: gabapentin 300 mg Capsule PO (08:09)
[2021-12-19] MEDS: gemfibrozil 600 mg Tablet PO (08:10)
--- NOTE | 2021-12-19 08:41 | W.PM.NPUDCS ---
Diagnoses at Discharge Discharge Diagnosis (1) Acute psychosis: Status: Acute (2) Cannabis dependence, daily use: Status: Chronic Permanent problem details: Patient states he uses daily for pain management-reports having a medical marijuana card (3) Schizoaffective disorder, bipolar type: Status: Chronic (4) Methamphetamine abuse: Status: Acute Reason for Visit Reason for Visit: PSYCH PT THINKS HE HAS PARASITES Brief History: 51-year-old male with a long history of psychiatric illness presents through the front door.? In the waiting room, he is restless, up walking around.? He shouts.? When brought back, he complains about bugs crawling out of his body.? He states the bugs are reproducing inside of them and hatching.? He shows us a bag of bread crumbs and tells us these are what is growing inside him.? He does also state that he has been off of his psychiatric medication, and would like to go back on his medication.? He has been self-medicating with drugs, likely amphetamine.? He denies any suicidality or homicidality, but does wish treatment.? He also believes his girlfriend is out to get him . complaint: altered mental status and other Onset (ago): day(s) Duration: constant and getting worse History of same: Yes Relieving factors: none Exacerbating factors: none Context: recent alcohol abuse and recent drug abuse Associated psychiatric symptoms: racing thoughts and delusions Associated symptoms: Reports visual hallucinations and delusions; Deny auditory hallucinations, homicidal ideation or suicidal ideation He was admitted to the neuropsychiatric unit for definitive treatment of those issues. The patient presents today reporting that he doesn?t know how many times he has been admitted to a psychiatric sahni nor his history of outpatient services though he did identify that he saw someone at [facility] and according to our records, the last visit that he had over at [facility] was September 08, 2021 and the first records in the system is an inpatient stay back in 2006. It appears that he has had 15 inpatient hospitalizations, the last one being in 2018 at this hospital at least. He is not currently taking any medications, or at the very least would not discuss medications and suggested that he is not taking them with the best accuracy but says that he does take them a lot of the time, including Seroquel, Neurotin, and Prozac. He is a fairly poor historian and focused on his likely paranoid and delusional thinking for most of the interview. He could be pulled away for some factual information as he did report smoking a pack of cigarettes every 2 to 3 days, having alcohol rarely, having his medical marijuana card, and denying other illicit drug use though he did seem to be having symptoms that would be consistent with methamphetamine use. The ED had not obtained a UDS and so we did obtain a UDS which was positive for amphetamines, marijuana and benzodiazepines. He reports he has never been to a rehab facility, never had a DUI but may have had some marijuana possessions charges. He spent most of the time talking about things like his phone being hacked and going down rabbit holes like that, but the echo of his story was that his girlfriend of 8 years, out of the blue, said that she was done with their relationship; he has a camper and she stated it would be fine if he stayed in the camper on the property but he had to give his keys to the house back which started a major confrontation with him being upset about losing the relationship and going from an equal partner in the house to having to make sure she is awake to come in and use the bathroom. So he reports he moved all of his stuff across the street, back in September of 2021. He reports that the next week his father so he had to go to [place] which he reports was not a great trip as his family has all kinds of tough entanglements and conflicts with one another. He was mostly focused on feeling like, since he has moved into his camper, feeling like people have been disconnecting things, vandalizing, burglarizing, and now the cable tool operator of the property that he moved to across the street says that he needs to leave so he is trying to get his stuff together to do that. He believes that someone also has infected his area around his home, his home as well as the place inside it with some parasite which has caused him to have all these bites which resemble pick harris from methamphetamine addiction but he believes fully to be parasites and refers to as such. He reports he has had one suicide in the past but denies self-injurious behaviors, He doesn?t believe anything is wrong with him and denies any need for medication changes. Ultimately, he wanted to discharge and we discussed the fact that it was our assessment that he needed to stabilize and needed to stay. He, however, was very clear that he had no intention to hurt himself or anyone else and that it was supposed to rain so he needed to go collect his stuff so he doesn?t lose everything. We discussed the risks, benefits and alternatives of us getting the UDS which had not been back at this time, and that after getting the UDS we would make some assessment about whether it was safe to allow him to leave against medical advice and he understood and agreed to proceed as is documented in this note. Hospital Course Hospital Course He slowly acclimated to the individual, group and milieu therapies provided. He was continued on his outpatient medications. He took several doses of Zyprexa Zydis.He tolerated these doses and showed steady improvement during his stay. He was able to contract for safety outside hospital prior to discharge. During the hospitalization, patient had routine laboratory studies which were within normal limits except for few outliers. Additionally there was a general medical evaluation which was also within normal limits and revealed no new acute processes. Discharge Summary: At the time of discharge, lethality was denied and psychosis was resolving. He no longer thought that he had parasites in his skin but was not sure about whether people would come into his trailer. He was adamant that he was going to stay away from methamphetamine. Mood and anxiety were well managed. Patient endorsed a plan to follow-up with the aftercare recommendations of the treatment team. Patient was evaluated and deemed to be absent credible lethality, and had achieved the maximum benefit from an inpatient hospitalization, so was discharged. Involuntary Hold Information 96 Hour Hold: 96 Hour Involuntary Admission: No Mental Status Exam MSE Comments: This is a 51-year-old appropriate weight male who appears approximately his stated age and is been moderate distress. He is poorly groomed with several days' growth of wells. He is dressed in hospital scrubs. psychomotor activity is normal Speech is at a regular rate and rhythm, increased volume, good articulation, not pressured. Alert, oriented X3 Attention and concentration appears to be normal. Memory is appears to be intact both formally tested Mood is frustrated at still being here.. Affect is mildly dysphoric but has not been angry. Thought process is logical and goal-directed. He sees bugs and worms crawling on his skin and crawling under his skin. When he is trying to sleep he hears people walking across his roof and making noise outside of his trailer he believes that people are coming into his camper and moving things and infesting his camper with parasites. He believes there are about 20 people were trying to keep him from progressing. He denies suicidal ideation. He does have thoughts and possibly plans to harm the people doing this to him. Fund of knowledge is average to below average. Insight and judgment appear to be still impaired but improved. Impulse control is impaired but improved. Cognition: Patient Appearance: Disheveled/Poor Hygiene Level of Consciousness: Awake, Alert and Appropriate Patient Cognition Impaired: No Ability to Follow Directions: Good Patient Orientation (long list): Person, Place, Name, Age and Birthday Comprehension Ability: No Impairment Hallucination Type: None Delusion Description: Not Present Thought Process: Appropriate Affect: Affect Description: [place], Depressed and Flat Behavior: Patient Behavior: Appropriate and Cooperative Speech Pattern: Appropriate and Clear Discharge Data Studies Completed and Pending: Completed Studies During Hospitalization Category Date Time Status CT abdomen pelvis w con* [id number] Urge nt Cat Scan 12/15/21 18:[address] head wo con* [id number] Urgent Cat Scan 12/15/21 18:07 Completed Radiology Impressions Abdomen/Pelvis CT 12/15/21 18:07 IMPRESSION: 1. Prominent fluid in the small bowel without dilation suggestive of an enteritis. 2. Hepatic steatosis. 3. Small amount of fluid in the right inguinal canal partially visualized, nonspecific. Head CT 12/15/21 18:07 IMPRESSION: No acute intracranial abnormality. Laboratory Results WBC 4.7 10^3/uL (4.0- 10.0) 12/15/21 19:33 RBC 5.50 10^6/uL (4.1 -5.3) H 12/15/21 19:33 Hgb 17.0 g/dL (11.7-1 6.6) H 12/15/21 19:33 Hct 50.8 % (42.0-52.0 ) 12/15/21 19:33 MCV 92.4 fl (80-94) 12/15/21 19:33 MCH 30.9 pg (28.0-34. 0) 12/15/21 19:33 MCHC 33.5 g/dL (30.0-3 6.0) 12/15/21 19:33 RDW 13.4 % (12.1-15.1 ) 12/15/21 19: Plt Count 218 10^3/cmm (130 -400) 12/15/21 19: MPV 10.3 fL (7.4-10.4 ) 12/15/21 19:33 Neut % (Auto) 28.0 % 12/15/21 19: Lymph % (Auto) 58.8 % 12/15/21: [place] % (Auto) 7.9 % 12/15/21 19: Eos % (Auto) 4.0 % 12/15/21 19: Baso % (Auto) 1.3 % 12/15/21: Neut # (Auto) 1.32 10^3/uL (1.8 -7.7) L 12/15/21: Lymph # (Auto) 2.8 10^3/uL (0.8- 4.8) 12/15/21: [place] # (Auto) 0.4 10^3/uL (0.2- 0.9) 12/15/21 19: Eos # (Auto) 0.2 10^3/uL (0.0- 0.8) 12/15/21: Baso # (Auto) 0.1 10^3/uL (0.0- 0.1) 12/15/21: Nucleated RBC % (a uto) 0 % 12/15/21: Nucleated RBCs # 0.0 /100WBC 12/15/21 19: Sodium 140 mmol/L (136-1 45) 12/15/21 19: Potassium 4.0 mmol/L (3.5-5 .1) 12/15/21 19: Chloride 101 mmol/L (98-10 7) 12/15/21: Carbon Dioxide 26 mmol/L (22-29) 12/15/21: Anion Gap 17.0 (5-19) 12/15/21 19: BUN 10 mg/dL (6-20) 12/15/21 19: Creatinine 0.7 mg/dL (0.7-1. 2) 12/15/21 19:33 GFR Calculation 119.4 mL/min (90- 130) 12/15/21:33 Glucose 92 mg/dL (65-115) 12/15/21 19:33 Calculated Osmolal ity 289 mOsm/kg (285- 295) 12/15/21 19:33 Calcium 10.4 mg/dL (8.5-1 0.5) 12/15/21 19:33 TSH 0.83 uIU/mL (0.27 -4.20) 12/15/21 19:33 Free T4 1.07 ng/dL (0.82- 1.77) 12/15/21 19:33 Urine Color Yellow (Yellow) 12/15/21 23:17 Urine Appearance Clear (CLEAR) 12/15/21 23:17 Urine pH 7 (5-7) 12/15/21 23:17 Ur Specific Gravit y 1.010 (1.005-1.0 30) 12/15/21 23:17 Urine Protein Neg (Negative) 12/15/21 23:17 Urine Glucose (UA) Norm (Normal) 12/15/21 23:17 Urine Ketones Negative (Negati ve) 12/15/21 23:17 Urine Blood Neg (Negative) 12/15/21 23:17 Urine Nitrate Negative (Negati ve) 12/15/21 23:17 Urine Bilirubin 1+ (Negative) H 12/15/21 23:17 Urine Urobilinogen 12 mg/dL (Negativ e) H 12/15/21 23:17 Ur Leukocyte Ericka ase Negative (Negati ve) 12/15/21 23:17 Salicylates 1.0 mg/dL (3-10) L 12/15/21 19:33 Urine Opiates Scre en Negative ng/mL (N egative) 12/15/21 23:17 Acetaminophen < 5.0 ug/mL (10-3 0) L 12/15/21 19:33 Ur Barbiturates Sc reen Negative ng/mL (N egative) 12/15/21 23:17 Ur Phencyclidine S crn Negative ng/mL (N egative) 12/15/21 23:17 Ur Amphetamines Sc reen Positive ng/mL (N egative) H 12/15/21 23:17 U Benzodiazepines Scrn Positive ng/mL (N egative) H 12/15/21 23:17 Urine Cocaine Scre en Negative ng/mL (N egative) 12/15/21 23:17 U Marijuana (THC) Screen Positive ng/mL (N egative) H 12/15/21 23:17 Vitals: Last Vital Signs Temp 97.9 F 12/19/21 05:55 Pulse 88 12/19/21 05:55 Resp 17 12/19/21 05:55 BP 106/74 12/19/21 05:55 Pulse Ox 98 12/19/21 05:55 Discharge Plan Discharge Patient Disposition: Home Condition: Stable Prescriptions: Continued fluoxetine 40 mg capsule 40 mg PO QAM Qty: 90 2RF Rx Instructions: Take one capsule every morning quetiapine 100 mg tablet 100 mg PO QAM Qty: 90 2RF Rx Instructions: Take one tablet every morning benztropine 1 mg tablet 1 mg PO BID Qty: 180 2RF Rx Instructions: Take one tablet in morning and bedtime gemfibrozil 600 mg tablet 600 mg PO BID 0RF gabapentin 300 mg capsule 300 mg PO TID 0RF Rx Instructions: TAKE 1 CAPSULE BY MOUTH THREE TIMES A DAY omeprazole 20 mg capsule,delayed release(DR/EC) 20 mg PO DAILY 0RF albuterol sulfate [ProAir HFA] 90 mcg/actuation HFA aerosol inhaler 180 mcg inhalation DIRECTED PRN (Reason: Shortness Of Breath) 0RF Rx Instructions: EVERY 8 HOURS NEEDED propranolol 10 mg tablet 10 mg PO TID 0RF Rx Instructions: TAKE 1 TABLET BY MOUTH THREE TIMES A DAY quetiapine [Seroquel] 300 mg tablet 300 mg PO BEDTIME 0RF Rx Instructions: Take one tablet at bedtime cyproheptadine 4 mg tablet 4 mg PO BEDTIME 0RF Rx Instructions: Take one tablet at bedtime Discharge Orders: Discharge Order (Routine); Ordered 12/19/21 Ordered By: Johnny Barrios Referrals: [facility] [Outside] (Walk in for services. Monday or 7:30 am to 3:00 pm. ) Jasson Torres MD [Primary Care Provider] - 12/29/21 10:30 am (Scheduled appointment) Marizol Stauffer, PMHNP [Staff Physician] - Discharge Diet: Regular Discharge Activity: Resume usual activity Patient Instructions: Opioid Safety Discharge Attestations NPU Time Spent in Discharge Care*: less than 30 min Specific Discharge Activities: Specific discharge activities: educating patient, discussing with case sealer/social workers/dc planners, documenting/other paperwork and evaluating patient/reviewing data Coding Level of Care Code Acute Chg FW DC note Diagnoses Acute psychosis F23 Cannabis dependence, daily use F12.20 Schizoaffective disorder, bipolar type F25.0 Methamphetamine abuse F15.10
[2021-12-19 09:05] VITALS: BP 106/74; PULSE 88; RESP 17; TEMP 36.6; O2SAT 98
== END 2021-12-19 10:00 | disposition home or self-care (01) | DRG 885 ==
LOC: ER 20:55 → NP 22:24
PROVIDERS: Admitting Provider Psychiatry & Neurology Psychiatry; Emergency Provider Emergency Medicine; PCP Family Medicine Adult Medicine; Visit Provider Psychiatry & Neurology Psychiatry
DX: F23 Brief psychotic disorder (principal); F12.20 Cannabis dependence, uncomplicated; F25.0 Schizoaffective disorder, bipolar type; F15.10 Other stimulant abuse, uncomplicated
CPT/HCPCS: 70450; 74177; 80048; 80306; 80307; 81003; 84439; 84443; 85025; 97150; 97165; J7030; Q0163; Q9967

== ENCOUNTER 2022-01-04 18:05 | Inpatient (IN) | payer MEDICAID, SELFPAY ==
[2022-01-04 18:41] VITALS: BP 135/98; PULSE 92; RESP 18; O2SAT 99
--- NOTE | 2022-01-04 18:47 | PC.NURSE ---
Patient de-escalated by staff. Per hold medications ordered at this time. Patient in bed, paper scrubs on , sitter at bedside. Security in the department. Patient anxious, aggressive verbally, but is now being cooperative.
--- NOTE | 2022-01-04 19:18 | ED_ITS ---
Documented by User: Debora Mohan MD 01/04/22 19:31 HPI - General Adult General: Chief complaint: Psychiatric Symptoms Stated complaint: PSYCH EVAL Time Seen by Provider: 01/04/22 18:11 History of Present Illness: HPI: [51]yo patient w/ hx of depression BIBP for acute suicidal ideation, depression, and alcohol use. On arrival, the patient is AAOx3 and cooperative with my evaluation. No focal complaints of chest pain, shortness of breath, palpitations, N/V, focal GI/ complaints. Currnetly denies SI. No complaints of hallucinations. Onset: Unknown Duration: ongoing Location: home Severity: severe Associated symptoms: Deny chest pain, dyspnea, nausea, rash, palpitations or vomiting Review of Systems Const: Denies: fever(s) or chills Eyes: Denies: change in vision ENMT: Denies: mouth pain Card: Denies: chest pain or palpitations Resp: Denies: dyspnea or non-productive cough GI: Denies: abdominal pain, nausea, vomiting or diarrhea : Denies: dysuria Musc: Denies: extremity pain Skin/Breast: Denies: rash or new lesions Neuro: Denies: weakness in extremities Psych: Reports: depression Al/Lymph: Denies: easy bruising PFSH ED PFSH: Medical History Cannabis dependence, daily use Patient states he uses daily for pain management-reports having a medical marijuana card Cervical disc disorder at C4-C5 level with radiculopathy Chronic low back pain with bilateral sciatica COPD (chronic obstructive pulmonary disease) Encounter to establish care Esophageal stricture Hyperlipidemia Hypertension Nicotine dependence, cigarettes, uncomplicated Prediabetes Psychiatric care Radiculopathy of cervical region Radiculopathy of lumbosacral region Right upper quadrant abdominal pain Schizoaffective disorder, bipolar type Surgical History H/O esophagogastroduodenoscopy (11/24/21) Disimpaction of food bolus History of ankle surgery left History of arthroscopic knee surgery Social History Alcohol intake: former Adopted: Yes History of recent travel: No Physical Exam Const: COMMON NORMALS: alert HENMT: COMMON NORMALS: atraumatic HEAD & SCALP: atraumatic MOUTH: moist mucous membranes not abnormal Eye: COMMON NORMALS: EOMs intact bilaterally and conjunctivae normal CONJUNCTIVA: Yes conjunctivae normal Neck/C-Spine: COMMON NORMALS: full ROM and supple Resp: COMMON NORMALS: normal respiratory effort and clear to auscultation bilaterally AUSCULTATION: clear to auscultation bilaterally Cardio: COMMON NORMALS: regular rate RATE: regular rate GI: COMMON NORMALS: Soft to palpation and non-tender PALPATION: Yes Soft to palpation Extremity: COMMON NORMALS: full ROM Neuro: SENSORIUM/ORIENTATION: Yes alert MOTOR EXAM: No Abnormal motor strength present and Other motor observations present (no focal motor deficits) Psych: COMMON NORMALS: speech normal SPEECH: Yes normal speech MOOD & AFFECT: Yes depressed mood Course Vital Signs: Vital signs: Vital Signs Pulse Rate 92 01/04/22 18:41 Respiratory Rate 18 01/04/22 18:41 Blood Pressure 135/98 01/04/22 18:41 Pulse Oximetry 99 01/04/22 18:41 MDM - General Adult Medical Decision Making [51]yo patient w/ hx of depression presenting for SI. HDS, exam within normal limit Thoughts are linear and organized, and the patient has no AH/VH, or HI. Clinically the patient displays no overt toxidrome; they are well appearing, with low suspicion for toxic ingestion given history and exam. Symptoms unlikely 2/2 anemia, hypothyroidism, infection, or ICH. Workup: CBC, CMP, Lipase, salicylate/tylenol, serum ethanol, UDS Lab findings: wnl [If admitting [8:45pm] On reassessment, labs and workup wnl. Patient is hemodynamically stable with no acute medical complaints. Case discussed with psychiatric provider [] at [facility] psych inpatient with recommendation for admission Disposition: Psych ] [If discharging [8:45pm] On reassessment, labs and workup wnl. Patient is hemodynamically stable with no acute medical complaints. Case discussed with psychiatric provider [] at [facility] psych inpatient who evaluated patient via telepsych and recommended discharge with close follow-up. Disposition: Discharge ] Lab Data : 01/04/22 19:24 01/04/22 19:24 Laboratory Results WBC 7.7 10^3/uL (4.0-10.0) 01/04/22 19: RBC 5.28 10^6/uL (4.1-5.3) 01/04/22 19: Hgb 16.5 g/dL (11.7-16.6) 01/04/22 19:24 Hct 49.1 % (42.0-52.0) 01/04/22 19: MCV 93.0 fl (80-94) 01/04/22 19: MCH 31.3 pg (28.0-34.0) 01/04/22 19: MCHC 33.6 g/dL (30.0-36.0) 01/04/22 19: RDW 13.6 % (12.1-15.1) 01/04/22: Plt Count 264 10^3/cmm (130-400) 01/04/22 19: MPV 9.5 fL (7.4-10.4) 01/04/22 19: Neut % (Auto) 56.0 % 01/04/22 19: Lymph % (Auto) 35.8 % 01/04/22 19:24 [place] % (Auto) 5.3 % 01/04/22 19: Eos % (Auto) 2.3 % 01/04/22: Baso % (Auto) 0.5 % 01/04/22: Neut # (Auto) 4.31 10^3/uL (1.8-7.7) 01/04/22: Lymph # (Auto) 2.8 10^3/uL (0.8-4.8) 01/04/22: [place] # (Auto) 0.4 10^3/uL (0.2-0.9) 01/04/22 19: Eos # (Auto) 0.2 10^3/uL (0.0-0.8) 01/04/22: Baso # (Auto) 0.0 10^3/uL (0.0-0.1) 01/04/22 19: Nucleated RBC % (auto) 0 % 01/04/22: Nucleated RBCs # 0.0 /100WBC 01/04/22 19: Sodium 140 mmol/L (136-145) 01/04/22 19:24 Potassium 3.8 mmol/L (3.5-5.1) 01/04/22 19:24 Chloride 104 mmol/L (98-107) 01/04/22 19:24 Carbon Dioxide 20 mmol/L (22-29) L 01/04/22 19:24 Anion Gap 19.8 (5-19) H 01/04/22 19:24 BUN 10 mg/dL (6-20) 01/04/22 19:24 Creatinine 0.7 mg/dL (0.7-1.2) 01/04/22 19:24 GFR Calculation 119.4 mL/min (90-130) 01/04/22 19:24 Glucose 88 mg/dL (65-115) 01/04/22 19:24 Calculated Osmolality 288 mOsm/kg (285-295) 01/04/22 19:24 Calcium 9.6 mg/dL (8.5-10.5) 01/04/22 19:24 Total Bilirubin 0.3 mg/dL (0.15-1.2) 01/04/22 19:24 AST 63 U/L (0-40) H 01/04/22 19:24 ALT 43 U/L (0-41) H 01/04/22 19:24 Alkaline Phosphatase 105 IU/L (40-130) 01/04/22 19:24 Total Protein 7.5 g/dL (6.6-8.7) 01/04/22 19:24 Albumin 4.9 g/dL (3.5-5.2) 01/04/22 19:24 Globulin 2.6 g/dL (1.3-4.6) 01/04/22 19:24 Lipase 33 U/L (13-60) 01/04/22 19:24 Urine Color Yellow (Yellow) 01/04/22 20:00 Urine Appearance Clear (CLEAR) 01/04/22 20:00 Urine pH 5 (5-7) 01/04/22 20:00 Ur Specific [place] 1.010 (1.005-1.030) 01/04/22 20:00 Urine Protein Neg (Negative) 01/04/22 20:00 Urine Glucose (UA) Norm (Normal) 01/04/22 20:00 Urine Ketones Negative (Negative) 01/04/22 20:00 Urine Blood Neg (Negative) 01/04/22 20:00 Urine Nitrate Negative (Negative) 01/04/22 20:00 Urine Bilirubin Neg (Negative) 01/04/22 20:00 Urine Urobilinogen Neg mg/dL (Negative) 01/04/22 20:00 Ur Leukocyte Esterase Negative (Negative) 01/04/22 20:00 Salicylates < 0.3 mg/dL (3-10) L 01/04/22 19:24 Acetaminophen < 5.0 ug/mL (10-30) L 01/04/22 19:24 Ethyl Alcohol 189 mg/dL (0-10) H 01/04/22 19:24 Discharge Plan Discharge Patient Disposition: Admitted As Inpatient Clinical Impression: Suicidal ideation, Methamphetamine abuse Condition: Stable Coding Level of Care Code ED Wire Rope Sling Maker for Chg Fwd Exam Comprehensive Documented by User: Na Mcpherson MD 01/05/22 01:38 HPI - General Adult General: Chief complaint: Psychiatric Symptoms Stated complaint: PSYCH EVAL Time Seen by Provider: 01/04/22 18:11 PFSH ED PFSH: Medical History Cannabis dependence, daily use Patient states he uses daily for pain management-reports having a medical marijuana card Cervical disc disorder at C4-C5 level with radiculopathy Chronic low back pain with bilateral sciatica COPD (chronic obstructive pulmonary disease) Encounter to establish care Esophageal stricture Hyperlipidemia Hypertension Nicotine dependence, cigarettes, uncomplicated Prediabetes Psychiatric care Radiculopathy of cervical region Radiculopathy of lumbosacral region Right upper quadrant abdominal pain Schizoaffective disorder, bipolar type Surgical History H/O esophagogastroduodenoscopy (11/24/21) Disimpaction of food bolus History of ankle surgery left History of arthroscopic knee surgery Social History Alcohol intake: former Adopted: Yes History of recent travel: No Course Vital Signs: Vital signs: Vital Signs Pulse Rate 92 01/04/22 18:41 Respiratory Rate 18 01/04/22 18:41 Blood Pressure 135/98 01/04/22 18:41 Pulse Oximetry 99 01/04/22 18:41 MDM - General Adult Medical Decision Making [51]yo patient w/ hx of depression presenting for SI. HDS, exam within normal limit Thoughts are linear and organized, and the patient has no AH/VH, or HI. Clinically the patient displays no overt toxidrome; they are well appearing, with low suspicion for toxic ingestion given history and exam. Symptoms unlikely 2/2 anemia, hypothyroidism, infection, or ICH. Workup: CBC, CMP, Lipase, salicylate/tylenol, serum ethanol, UDS Lab findings: wnl Patient presents here with suicidal and homicidal ideations. Patient's been medically cleared and placed on a 96-hour hold I spoke to Dr. Jones and will admit to the psychiatric sahni. Lab Data : 01/04/22 19:24 01/04/22 19:24 Laboratory Results WBC 7.7 10^3/uL (4.0-10.0) 01/04/22 19:24 RBC 5.28 10^6/uL (4.1-5.3) 01/04/22 19:24 Hgb 16.5 g/dL (11.7-16.6) 01/04/22 19:24 Hct 49.1 % (42.0-52.0) 01/04/22 19:24 MCV 93.0 fl (80-94) 01/04/22 19:24 MCH 31.3 pg (28.0-34.0) 01/04/22 19:24 MCHC 33.6 g/dL (30.0-36.0) 01/04/22 19:24 RDW 13.6 % (12.1-15.1) 01/04/22 19:24 Plt Count 264 10^3/cmm (130-400) 01/04/22 19:24 MPV 9.5 fL (7.4-10.4) 01/04/22 19:24 Neut % (Auto) 56.0 % 01/04/22 19:24 Lymph % (Auto) 35.8 % 01/04/22 19:24 [place] % (Auto) 5.3 % 01/04/22 19:24 Eos % (Auto) 2.3 % 01/04/22 19:24 Baso % (Auto) 0.5 % 01/04/22 19:24 Neut # (Auto) 4.31 10^3/uL (1.8-7.7) 01/04/22 19:24 Lymph # (Auto) 2.8 10^3/uL (0.8-4.8) 01/04/22 19:24 [place] # (Auto) 0.4 10^3/uL (0.2-0.9) 01/04/22 19:24 Eos # (Auto) 0.2 10^3/uL (0.0-0.8) 01/04/22 19: Baso # (Auto) 0.0 10^3/uL (0.0-0.1) 01/04/22 19:24 Nucleated RBC % (auto) 0 % 01/04/22 19: Nucleated RBCs # 0.0 /100WBC 01/04/22 19:24 Sodium 140 mmol/L (136-145) 01/04/22 19:24 Potassium 3.8 mmol/L (3.5-5.1) 01/04/22 19:24 Chloride 104 mmol/L (98-107) 01/04/22 19:24 Carbon Dioxide 20 mmol/L (22-29) L 01/04/22 19:24 Anion Gap 19.8 (5-19) H 01/04/22 19:24 BUN 10 mg/dL (6-20) 01/04/22 19:24 Creatinine 0.7 mg/dL (0.7-1.2) 01/04/22 19:24 GFR Calculation 119.4 mL/min (90-130) 01/04/22 19:24 Glucose 88 mg/dL (65-115) 01/04/22 19:24 Calculated Osmolality 288 mOsm/kg (285-295) 01/04/22 19:24 Calcium 9.6 mg/dL (8.5-10.5) 01/04/22 19:24 Total Bilirubin 0.3 mg/dL (0.15-1.2) 01/04/22 19:24 AST 63 U/L (0-40) H 01/04/22 19:24 ALT 43 U/L (0-41) H 01/04/22 19:24 Alkaline Phosphatase 105 IU/L (40-130) 01/04/22 19:24 Total Protein 7.5 g/dL (6.6-8.7) 01/04/22 19:24 Albumin 4.9 g/dL (3.5-5.2) 01/04/22 19:24 Globulin 2.6 g/dL (1.3-4.6) 01/04/22 19:24 Lipase 33 U/L (13-60) 01/04/22 19:24 Urine Color Yellow (Yellow) 01/04/22 20:00 Urine Appearance Clear (CLEAR) 01/04/22 20:00 Urine pH 5 (5-7) 01/04/22 20:00 Ur Specific [place] 1.010 (1.005-1.030) 01/04/22 20:00 Urine Protein Neg (Negative) 01/04/22 20:00 Urine Glucose (UA) Norm (Normal) 01/04/22 20:00 Urine Ketones Negative (Negative) 01/04/22 20:00 Urine Blood Neg (Negative) 01/04/22 20:00 Urine Nitrate Negative (Negative) 01/04/22 20:00 Urine Bilirubin Neg (Negative) 01/04/22 20:00 Urine Urobilinogen Neg mg/dL (Negative) 01/04/22 20:00 Ur Leukocyte Esterase Negative (Negative) 01/04/22 20:00 Salicylates < 0.3 mg/dL (3-10) L 01/04/22 19:24 Acetaminophen < 5.0 ug/mL (10-30) L 01/04/22 19:24 Ethyl Alcohol 189 mg/dL (0-10) H 01/04/22 19:24 Discharge Plan Discharge Patient Disposition: Admitted As Inpatient Clinical Impression: Suicidal ideation, Methamphetamine abuse Condition: Stable Coding Level of Care Code ED Wire Rope Sling Maker for Radha Fwd Exam Comprehensive
--- NOTE | 2022-01-04 19:18 | PC.NURSE ---
Instructed to give half of the Haldol dose and half of the Ativan dose per Dr. Mohan, patient requested something for anxiety and discontinue the Benadryl. RN wasted additional medications with another RN and documented in the pyxis.
[2022-01-04] MEDS: haloperidol inj 5 mg/mL INJ 1 mL IM (19:20)
[2022-01-04] MEDS: LORazepam 2 mg/mL INJ 1 mL IM (19:21)
[2022-01-04 19:34] LABS: Basophils % 0.5 %; Eosinophils # 0.2 10^3/uL (0.0-0.8); Eosinophils % 2.3 %; Hematocrit 49.1 % (42.0-52.0); Hemoglobin 16.5 g/dL (11.7-16.6); Lymphocytes # 2.8 10^3/uL (0.8-4.8); Lymphocytes % 35.8 %; Mean Corpuscular HGB Conc 33.6 g/dL (30.0-36.0); Mean Corpuscular Hemoglobin 31.3 pg (28.0-34.0); Mean Platelet Volume 9.5 fL (7.4-10.4); Monocytes # 0.4 10^3/uL (0.2-0.9); Monocytes % 5.3 %; Neutrophils # 4.31 10^3/uL (1.8-7.7); Nucleated Red Blood Cells % 0 %; Platelet Count 264 10^3/cmm (130-400); Red Blood Count 5.28 10^6/uL (4.1-5.3); Red Cell Distribution Width 13.6 % (12.1-15.1); White Blood Count 7.7 10^3/uL (4.0-10.0)
[2022-01-04 19:53] LABS: Alanine Aminotransferase 43 U/L (0-41); Albumin Level 4.9 g/dL (3.5-5.2); Alcohol Level 189 mg/dL (0-10); Alkaline Phosphatase 105 IU/L (40-130); Anion Gap 19.8 (5-19); Aspartate Amino Transferase 63 U/L (0-40); Blood Urea Nitrogen 10 mg/dL (6-20); Calcium 9.6 mg/dL (8.5-10.5); Carbon Dioxide 20 mmol/L (22-29); Chloride 104 mmol/L (98-107); Globulin 2.6 g/dL (1.3-4.6); Glomerular Filtration Rate 119.4 mL/min (90-130); Glucose 88 mg/dL (65-115); Lipase 33 U/L (13-60); Osmolality Calculated 288 mOsm/kg (285-295); Potassium 3.8 mmol/L (3.5-5.1); Sodium 140 mmol/L (136-145); Total Bilirubin 0.3 mg/dL (0.15-1.2); Total Protein 7.5 g/dL (6.6-8.7)
[2022-01-04 19:56] LABS: Acetaminophen < 5.0 ug/mL (10-30); Salicylate < 0.3 mg/dL (3-10)
[2022-01-04 20:05] LABS: Add Urine Microscopic? NO; Charge for UA Resulting for Rev
[2022-01-04 20:08] LABS: Bilirubin Urine Neg (Negative); Blood Urine Neg (Negative); Glucose Urine UA Norm (Normal); Ketones Urine Negative (Negative); Leukocyte Esterase Urine Negative (Negative); Nitrate Urine Negative (Negative); Protein Urine Neg (Negative); Urine Appearance Clear (CLEAR); Urine Color Yellow (Yellow); Urobilinogen Urine Neg (Negative); pH Urine 5 (5-7)
[2022-01-05 02:11] VITALS: BP 114/86; PULSE 94; RESP 16; TEMP 37.6; O2SAT 96
[2022-01-05 02:33] VITALS: BP 114/86; PULSE 94; RESP 16; O2SAT 96
[2022-01-05 02:45] LABS: Amphetamines Screen Urine Negative (Negative); Barbiturates Screen Urine Negative (Negative); Benzodiazepines Screen Urine Negative (Negative); Cocaine Screen Urine Negative (Negative); Opiate Screen Urine Negative (Negative); PCP Screen Urine Negative (Negative); THC Screen Urine Positive (Negative)
[2022-01-05 02:48] VITALS: BP 113/79; PULSE 112; RESP 18; TEMP 37.1; O2SAT 96
[2022-01-05 02:49] VITALS: BMI 21.7
--- NOTE | 2022-01-05 03:24 | PC.ADMIT ---
[address] [facility] Admission Note: The patient,Marty Rosas,51 y/o, was given written information regarding hospital policies, unit procedures and contact persons. Patient's smoking status: current every day smoker. Vital Signs - 8 hr 01/05/22 02:11 01/05/22 02:33 01/05/22 02:48 Temperature 99.6 F 98.7 F Pulse Rate 94 94 112 H Respiratory Rate 16 16 18 Blood Pressure 114/86 114/86 113/79 Pulse Oximetry 96 96 96 Patient alert and oriented, asked for several drinks and snacks, signed admission paperwork and skin assessent done, patient noted to have small scabbed bite like wounds on right calf, and large wound to middle forehead, and splits in tips of fingers. Patient would not state what happened to receive the wounds. Attempted to complete physical and admission assessments and patient was uncooperative, stated I don't want to talk to you. and laid down in bed and covered up. Patient has hx of methamphetamine abuse and UDS was positive for marijuana. Per affidavits patient was making suicidal and homicidal statements. Patient given packet with teaching materials and 96 hr hold paperwork.
[2022-01-05 06:00] VITALS: BP 137/84; PULSE 102; RESP 18; TEMP 36.4; O2SAT 97
[2022-01-05] MEDS: acetaminophen 325 mg Tablet 650 MG PO ×2 (06:36→13:41)
[2022-01-05] MEDS: OLANZapine 5 mg ODT PO ×3 (06:45→19:00)
[2022-01-05] MEDS: multivitamin therapeutic Tablet 1 TAB PO (09:54)
[2022-01-05] MEDS: folic acid 1 mg Tablet PO (09:54)
[2022-01-05] MEDS: thiamine 100 mg Tablet PO (09:55)
--- NOTE | 2022-01-05 10:01 | P.NPUHP_ITS ---
Providers/Chief Complaint Admitting Physician: Josr Jones MD Primary Care Provider: Jasson Torres MD Chief Complaint: PSYCH EVAL HPI NPU History of Present Illness Marty Rosas is a 51 year old male who presented to the emergency department with the following report: HPI: [51]yo patient w/ hx of depression BIBP for acute suicidal ideation, depres china, and alcohol use. On arrival, the patient is AAOx3 and cooperative with my evaluation. No focal complaints of chest pain, shortness of breath, palpitations, N/V, focal GI/ complaints. Currnetly denies SI. No complaints of hallucinations. Onset: Unknown Duration: ongoing Location: home Severity: severe Associated symptoms: Deny chest pain, dyspnea, nausea, rash, palpitations or vomiting He was admitted to the neuropsychiatric unit for definitive treatment of those issues. He presents today essentially with some reports of paranoia and persecutory thinking that he did our last encounter which was 12/11/2021. Concerns existed for possible need for continued psychiatric care. However he was allowed to leave but then return 4 days later and was hospitalized for 4 days. Now he presents 16 days later with the same report. The people are messing with his things that he tried to move out of his living circumstance and it was not for people messing with his things and interfering with his life there would be no problem. Once again he was brought in by authorities this time he reports that a close friend had betrayed him and was sending messages to his ex-girlfriend and that we need to let him know because people are planning on stealing his belongings or as long as he can get wet etc. When he presented at the beginning of this month he was advised that if I discharged him and he returned with similar reports then the concerns and assumptions that this is psychotic behavior would need to be explored further and a quick discharge would not be likely. He denies any issues. He presented last time positive for cannabis, amphetamines, and benzodiazepines in fact the last 2 visits in December today he presents having had a blood alcohol of 189 and still positive for cannabis. We had a long discussion about our thought that his psychosis is related to his methamphetamine use which he denies. And we explained that even with a negative screen for now his psychosis could be related to the methamphetamine still as well as possible withdrawal issues related to benzodiazepines. We discussed our concerns and agreement with a 96-hour hold which he felt was unacceptable and mostly argued throughout the interview not answering questions only arguing for why he should not be in the hospital. Per his 12/16/2021 [facility] inpatient psychiatric evaluation: History of Present Illness Marty Rosas is a 51-year-old male admitted to the emergency department with the following report: HPI: [51]yo patient w/ hx of schizophrenia BIBA not taking medication presenting to the ED for On arrival, the patient is AAOx3 and cooperative with my eval uation.? Has disorganized thoughts.? Patient complains of sensations of parasitosis all over his body and mouth ass well as right-sided abdominal pain.? No focal complaints of chest pain, shortness of breath, palpitations, N/V, focal GI/ complaints. Currently denies SI/HI. His ex- filled out an affidavit which states Eduardo is diagnosed schizoaffective disorder.? He has had a couple of dramatic experiences since August.? Resulting in him starting to drink and do methamphetamine.? He also quit his meds.? He is having delusions.? He believes that he has parasites or worms under his skin and all through his body.? He has burning himself trying to burn the worms.? He also believes he is being targeted of a conspiracy against him.? He sees drones everywhere.? He has torn his camper apart thinking it is infested.? He thinks that people are moving his camper and that there is a magnet that is bending the frame.? He has made verbal threats against people where his camper resides.? He sees people coming through the ferris.? He is a danger to himself and others.? He is in stress unit now just do not want him to sign himself out. He was admitted to the neuropsychiatry for definitive treatment of these issues.? He says he is stressed out because everything in his life is messed up.? He is trying to move but cannot.? He says there are 20 people who are trying to obstruct what ever he does.? He says even when he leaves his trailer for a few minutes people come in and take things and move things around.? He went to the store to buy some cigarettes and some beer and when he came back his trailer had parasites which are now all over him.? He says that he can see that crawling on his skin.? He has many cuts and places on his skin.? Which he has caused by trying to get rid of these parasites.? He says that he put them in a sandwich bag and he tried to show them to people but they thought they were breadcrumbs.? He says that he is going to put things on the skin people who have not done this to him that water and soap on takeoff.? He says that he is going to beat them up and make them sorry that they have done these things to him.? He says that he has not been able to sleep because he is trying to sleep people are walking across his growth or knocking on the [place] and making noise in various ways.? He says that while he is here they are free to do what ever they want to do stuff and they will ruin everything that he has.? He said that the primary suspects are the owners of the land where he is living and his ex- who lives right across the street.? He said that he needed to go home.? When told that it was not safe to let him go he said that he was going to beat someone up here.? His drug screen was positive for methamphetamine, marijuana and benzodiazepines. He was just here a few days ago with the following admission note. 51-year-old male with a long history of psychiatric illness presents through the front door.? In the waiting room, he is restless, up walking around.? He shouts.? When brought back, he complains about bugs crawling out of his body.? He states the bugs are reproducing inside of them and hatching.? He shows us a bag of bread crumbs and tells us these are what is growing inside him.? He does also state that he has been off of his psychiatric medication, and would like to go back on his medication.? He has been self-medicating with drugs, likely amphetamine.? He denies any suicidality or homicidality, but does wish treatment.? He also believes his girlfriend is out to get him . complaint: altered mental status and other ?Onset (ago): day(s) ?Duration: constant and getting worse ?History of same: Yes ?Relieving factors: none ?Exacerbating factors: none ?Context: recent alcohol abuse and recent drug abuse ?Associated psychiatric symptoms: racing thoughts and delusions ?Associated symptoms: Reports visual hallucinations and delusions; ?Deny auditory hallucinations, homicidal ideation or suicidal ideation He was admitted to the neuropsychiatric unit for definitive treatment of those issues. The patient presents today reporting that he doesn?t know how many times he has been admitted to a psychiatric sahni nor his history of outpatient ser vices though he did identify that he saw someone at [facility] and according to our records, the last visit that he had over at [facility] was September 08, 2021 and the first records in the system is an inpatient stay back in 2006. It appears that he has had 15 inpatient hospitalizations, the last one being in 2018 at this hospital at least. He is not currently taking any medications, or at the very least would not discuss medications and suggested that he is not taking them with the best accuracy but says that he does take them a lot of the time, including Seroquel, Neurotin, and Prozac. He is a fairly poor historian and focused on his likely paranoid and delusional thinking for most of the interview. He could be pulled away for some factual information as he did report smoking a pack of cigarettes every 2 to 3 days, having alcohol rarely, having his medical marijuana card, and denying other illicit drug use though he did seem to be having symptoms that would be consistent with methamphetamine use. The ED had not obtained a UDS and so we did obtain a UDS which was positive for amphetamines, marijuana and benzodiazepines. He reports he has never been to a rehab facility, never had a DUI but may have had some marijuana possessions charges. He spent most of the time talking about things like his phone being hacked and going down rabbit holes like that, but the echo of his story was that his girlfriend of 8 years, out of the blue, said that she was done with their relationship; he has a camper and she stated it would be fine if he stayed in the camper on the property but he had to give his keys to the house back which started a major confrontation with him being upset about losing the rel ationship and going from an equal partner in the house to having to make sure she is awake to come in and use the bathroom. So he reports he moved all of his stuff across the street, back in September of 2021. He reports that the next week his father so he had to go to [place] which he reports was not a great trip as his family has all kinds of tough entanglements and conflicts with one another. He was mostly focused on feeling like, since he has moved into his camper, feeling like people have been disconnecting things, vandalizing, burglarizing, and now the agency owner of the property that he moved to across the street says that he needs to leave so he is trying to get his stuff together to do that. He believes that someone also has infected his area around his home, his home as well as the place inside it with some parasite which has caused him to have all these bites which resemble pick harris from methamphetamine addiction but he believes fully to be parasites and refers to as such. He reports he has had one suicide in the past but denies self-injurious behaviors, He doesn?t believe anything is wrong with him and denies any need for medication changes. Ultimately, he wanted to discharge and we discussed the fact that it was our assessment that he needed to stabilize and needed to stay. He, however, was very clear that he had no intention to hurt himself or anyone else and that it was supposed to rain so he needed to go collect his stuff so he doesn?t lose everything. We discussed the risks, benefits and alternatives of us getting the UDS which had not been back at this time, and that after getting the UDS we would make some assessment about whether it was safe to allow him to leave against medical advice and he understood and agreed to proceed as is documented in this note. Meds NPU Home Medications Medication Instructions Recorded Confirmed Last Taken Type Cogentin 1 mg PO BEDTIME 01/05/22 01/05/22 Unknown History albuterol sulfate 90 mcg/actuation 2 puff INHALATION QID PRN 01/05/22 01/05/22 Unknown History aerosol inhaler (ProAir HFA) cyproheptadine 4 mg tablet 4 mg PO BEDTIME 01/05/22 01/05/22 Unknown History fluoxetine 20 mg capsule 40 mg PO DAILY 01/05/22 01/05/22 Unknown History gabapentin 300 mg PO TID 01/05/22 01/05/22 Unknown History gemfibrozil 600 mg PO BID 01/05/22 01/05/22 Unknown History omeprazole 20 mg capsule,delayed 20 mg PO DAILY 01/05/22 01/05/22 Unknown History release propranolol 10 mg tablet 10 mg PO TID 01/05/22 01/05/22 Unknown History quetiapine 100 mg PO DAILY 01/05/22 01/05/22 Unknown History quetiapine 300 mg PO BEDTIME 01/05/22 01/05/22 Unknown History Allergies Allergy/AdvReac Type Severity Reaction Status Date / Time haloperidol [From Haldol] Allergy ADV-Weaknes Verified 12/16/21 14:07 s chlorpromazine AdvReac Intermediate ADR-Seizure Verified 04/08/21 13:11 [From Thorazine] hydroxyzine [From Vistaril] AdvReac Intermediate ADR-Anxiety Verified 04/08/21 13:11 PFSH NPU PFSH: Medical History Cannabis dependence, daily use Patient states he uses daily for pain management-reports having a medical marijuana card Cervical disc disorder at C4-C5 level with radiculopathy Chronic low back pain with bilateral sciatica COPD (chronic obstructive pulmonary disease) Encounter to establish care Esophageal stricture Hyperlipidemia Hypertension Nicotine dependence, cigarettes, uncomplicated Prediabetes Psychiatric care Radiculopathy of cervical region Radiculopathy of lumbosacral region Right upper quadrant abdominal pain Schizoaffective disorder, bipolar type Surgical History H/O esophagogastroduodenoscopy (11/24/21) Disimpaction of food bolus History of ankle surgery left History of arthroscopic knee surgery Social History Alcohol intake: former Adopted: Yes History of recent travel: No Mental Status Exam MSE Comments: This is a well-nourished, well-developed white male in green hospital scrubs with limited grooming and eye contact. He has numerous scrapes and scratches and abrasions on his hands arms and one in the middle of his forehead. No abnormal movements except for psychomotor agitation. Limited cooperation with exam in moderate distress. Speech was increased rate and and mostly normal volume. Patient mood described as fine, affect odd. Thought process, organized at times and disorganized at other times. Thought content: patient denied suicidal or homicidal ideations, no delusions reported but clear paranoid and persecutory delusions existed, and he denied any auditory or visual hallucinations. Attention and concentration are intact and memory is intermittently reliable but none were formally tested. He is alert and oriented three times. Insight and judgment are limited. Impulse control is limited. Vitals/I&O/Wt Last Vital Signs Temp 98.7 F 01/05/22 02:48 Pulse 112 H 01/05/22 02:48 Resp 18 01/05/22 02:48 BP 113/79 01/05/22 02:48 Pulse Ox 96 01/05/22 02:48 Weight last 48 hrs Weight 70.851 kg Weight 83.915 kg Data NPU : 01/04/22 19:24 01/04/22 19:24 A&P Assessment and plan (1) Suicidal ideation: Status: Acute (2) Methamphetamine abuse: Status: Acute (3) Acute psychosis: Status: Acute (4) Hypertension: Status: Acute (5) Schizoaffective disorder, bipolar type: Status: Chronic (6) Alcohol use disorder: Status: Acute Plan This is a 51 year old white male with a history of schizoaffective disorder and cannabis dependence as well as recent methamphetamine use who presents clearly having some psychosis here for the third time in less than 30 days once again lobbying for discharge. Continue current medications Encourage individual, group and milieu therapy Continue q-15 minute check for safety Recommend sober living treatment at the highest level of care to which the p atient is willing to commit. Given this is third hospitalization in less than 4 weeks we will consider whether using a 21-day hold to get him established on medication is warranted. Involuntary Hold Information 96 Hour Hold: 96 Hour Involuntary Admission: Yes 96 Hour Hold Ending Date: 01/11/22 96 Hour Hold Ending Time: 01:32 Attestations NPU Medical Necessity Statement*: Inpatient hospitalization is medically necessary and the clinically appropriate intervention at this time.? We will initiate medications and make changes as indicated.? He will be in the hospital for over 2 midnights.? Likely length of stay 4-6 days Coding Level of Care Code Acute Milk Driver for Radha Charles Diagnoses Suicidal ideation R45.851 Methamphetamine abuse F15.10 Acute psychosis F23 Hypertension I10 Schizoaffective disorder, bipolar type F25.0 Alcohol use disorder
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
--- NOTE | 2022-01-05 11:53 | NPU.GN ---
[facility] Group Topic:Rodolfo Saab General Mood of Group: Patient did not attend group today.
--- NOTE | 2022-01-05 12:03 | PC.NURSE ---
Patient given zyprexa 5 mg sl for increased agitation voiced by patient.
[2022-01-05] MEDS: propranolol 20 mg Tablet 10 MG PO ×2 (13:41→21:57)
[2022-01-05] MEDS: fluoxetine 20 mg Capsule PO (13:42)
[2022-01-05] MEDS: quetiapine 100 mg Tablet PO (13:54)
[2022-01-05 14:00] VITALS: BP 92/53; PULSE 89; RESP 17; O2SAT 94
[2022-01-05] MEDS: benztropine 1 mg Tablet PO (18:04)
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
[2022-01-05 19:30] VITALS: BP 91/48; PULSE 96; RESP 15; O2SAT 97
[2022-01-05] MEDS: quetiapine 300 mg Tablet PO (21:56)
[2022-01-06 05:05] VITALS: BP 114/68; PULSE 80; RESP 16; TEMP 36.3; O2SAT 99
[2022-01-06] MEDS: ibuprofen 800 mg tablet PO ×2 (06:05→15:33)
[2022-01-06] MEDS: OLANZapine 5 mg ODT PO ×3 (06:36→21:16)
--- NOTE | 2022-01-06 06:38 | PC.NURSE ---
Zyprexa 5mg PO given for agitation and anxiety. pATIENT UPSET ABOUT 96 HOUR HOLD DATE / TIME.
--- NOTE | 2022-01-06 08:41 | PC.NURSE ---
PT UP THIS MORNING. IS EASILY AGITATED AND FRUSTRATED. APPEARS TENSE MOST OF THE TIME. DID EAT BREAKFAST. DENIES ANY SI/HI AND AVH. PRESERVATIVE ABOUT DISCHARGE. DOES ENDORSE CONTINUED ANXIETY AND BACK PAIN. HAS BEEN REDIRECTABLE BY STAFF THIS MORNING.
[2022-01-06] MEDS: pantoprazole DR 40 mg Tablet PO (08:43)
[2022-01-06] MEDS: acetaminophen 325 mg Tablet 650 MG PO ×2 (08:43→18:08)
[2022-01-06] MEDS: LORazepam 2 mg Tablet PO (08:44)
[2022-01-06] MEDS: propranolol 20 mg Tablet 10 MG PO ×3 (08:44→21:17)
[2022-01-06] MEDS: benztropine 1 mg Tablet PO ×2 (08:44→18:09)
[2022-01-06] MEDS: multivitamin therapeutic Tablet 1 TAB PO (08:44)
[2022-01-06] MEDS: folic acid 1 mg Tablet PO (08:44)
[2022-01-06] MEDS: quetiapine 100 mg Tablet PO (08:45)
[2022-01-06] MEDS: fluoxetine 20 mg Capsule PO (08:45)
[2022-01-06] MEDS: thiamine 100 mg Tablet PO (08:45)
--- NOTE | 2022-01-06 12:42 | NPU.GN ---
[facility] Group Topic:Dice Breaker General Mood of Group Patient did attend group today. Patient was social and participated in group discussion. Patients hygiene was poor. Patients mindset seems stable but exhibits anger issues. CSS met with patient and discussed BHC services. Patient mentioned that he has had BHC case management rn before but he didnt feel like they were a good fit and didnt click so he didnt trust her. Patient requested that this designer writer be his CSS. This designer writer informed patient that this writers role is to do intakes that we can place him with another guest advisor. Patient was hesitant as he feels this designer writer is smart and someone I can get along with and trust to talk to. This designer writer left patient the packet to complete if patient decides to want BHC services.
[2022-01-06 14:00] VITALS: BP 130/87; PULSE 84; RESP 17; TEMP 36.3; O2SAT 97
--- NOTE | 2022-01-06 17:43 | P.NPUPN_ITS ---
Subjective NPU Subjective: Patient presents today continuing to lobby for why he should be discharged and why he does not be medication or further interventions. He is very angry and reports that his unfairly is here and that the people that are causing him to be here are not being held accountable for their behaviors. Not open to the suggestion that these 3 recent hospitalizations are result of his bill health issues and addiction continuing to blame others for interfering with him and messing with my stuff. Mental Status Exam MSE Comments: This is a well-nourished, well-developed white male in [facility] scrubs with limited grooming and eye contact.? He has numerous scrapes and scratches and abrasions on his hands arms and one in the middle of his forehead.? No abnormal movements except for mild psychomotor agitation.? Limited cooperation with exam in mild to moderate distress. Speech was increased rate and and mostly normal volume. Patient mood described as I am fine I do not have any issues other than needing to continue to gather my stuff, affect odd. Thought process, organized at times and disorganized at other times. Thought content: patient denied suicidal or homicidal ideations, no delusions reported but clear paranoid and persecutory delusions existed, and he denied any auditory or visual hallucinations. Attention and concentration are intact and memory is intermittently reliable but none were formally tested. He is alert and oriented three times. Insight and judgment are limited. Impulse control is limited. Vitals/I&O/Wt Last Vital Signs Temp 97.3 F L 01/06/22 14:00 Pulse 87 01/06/22 20:44 Resp 20 H 01/06/22 21:30 BP 130/87 01/06/22 14:00 Pulse Ox 98 01/06/22 20:44 Data NPU : 01/04/22 19:24 01/04/22 19:24 A&P Assessment and plan (1) Alcohol use disorder: Status: Acute (2) Suicidal ideation: Status: Acute (3) Methamphetamine abuse: Status: Acute (4) Acute psychosis: Status: Acute (5) Schizoaffective disorder, bipolar type: Status: Chronic (6) Cannabis dependence, daily use: Status: Chronic Plan This is a 51 year old white male with a history of schizoaffective disorder and cannabis dependence as well as recent methamphetamine use who presents clearly having some psychosis here for the third time in less than 30 days once again lobbying for discharge. Continue current medications and continue to offer an antipsychotic. Encourage individual, group and milieu therapy Continue q-15 minute check for safety Recommend sober living treatment at the highest level of care to which the patient is willing to commit. Given this is third hospitalization in less than 4 weeks we will consider whether using a 21-day hold to get him established on medication is warranted. Involuntary Hold Information 96 Hour Hold: 96 Hour Involuntary Admission: Yes 96 Hour Hold Ending Date: 01/11/22 96 Hour Hold Ending Time: 01:32 Attestations NPU Medical Necessity Statement*: Inpatient hospitalization is medically necessary and the clinically appropriate intervention at this time.? We will initiate medications and make changes as indicated.? Likely length of stay 4-6 days Coding Level of Care Code Acute Beet End Supervisor for Radha Funesd Diagnoses Alcohol use disorder Suicidal ideation R45.851 Methamphetamine abuse F15.10 Acute psychosis F23 Schizoaffective disorder, bipolar type F25.0 Cannabis dependence, daily use F12.20
[2022-01-06 20:44] VITALS: PULSE 87; RESP 18; O2SAT 98
[2022-01-06] MEDS: quetiapine 300 mg Tablet PO (21:16)
[2022-01-06 21:30] VITALS: RESP 20
--- NOTE | 2022-01-07 00:06 | PC.NURSE ---
PRN ADMIN Patient getting agitated with staff and Getting loud and anxious. Given PRN zydis for anxiety and agitation with noted effectiveness.
--- NOTE | 2022-01-07 00:30 | PC.NURSE ---
patient to nurse station for juice and milk
--- NOTE | 2022-01-07 01:00 | PC.NURSE ---
patient to nurse station for juice and milk
--- NOTE | 2022-01-07 01:49 | PC.NURSE ---
patient to nurse station for juice and milk
--- NOTE | 2022-01-07 02:27 | PC.NURSE ---
patient to nurse station for juice and milk
--- NOTE | 2022-01-07 02:47 | PC.NURSE ---
patient at nurses station, asking for another juice and milk. patient told we are running out and need to ration it so other patients that haven't had any have a chance. patient agitated, states who is the route delivery supervisor of this hospital I want the person in charge of the whole [facility] and I want to write a letter. patient given pen and paper.
--- NOTE | 2022-01-07 02:50 | PC.NURSE ---
patient offered water, patient refused. patient only wants juice or milk.
--- NOTE | 2022-01-07 04:00 | PC.NURSE ---
patient complaining of anxiety
[2022-01-07] MEDS: OLANZapine 5 mg ODT PO ×4 (04:01→14:53)
[2022-01-07] MEDS: acetaminophen 325 mg Tablet 650 MG PO ×3 (04:01→14:04)
[2022-01-07 06:00] VITALS: RESP 20
--- NOTE | 2022-01-07 06:49 | PC.NURSE ---
patient has had 3 cups of coffee since 0600, patient wants fourth cup. patient told we need to limit coffee in that short period of time and give other patients a chance to have some. patient is hoarding butter, creamer, sugar, sweetener in room with multiple cups full of these condiments. patient agitated, stating fuck you, you aren't paying for it .
--- NOTE | 2022-01-07 07:20 | PC.NURSE ---
Patient becoming verbally agitated, continues to request multiple milks, juices, and coffees, he has had many throughout the night. Offered patient water and he refused, stated I need milk or juice for my dry mouth. Patient began requesting security due to me not giving more milk and juice. Patient was found to have multiple towels, soaps, and shampoos in room during contrabend checks. Removed contraband from room, which further agitated patient.
[2022-01-07] MEDS: quetiapine 100 mg Tablet PO (08:03)
[2022-01-07] MEDS: folic acid 1 mg Tablet PO (08:03)
[2022-01-07] MEDS: propranolol 20 mg Tablet 10 MG PO ×3 (08:03→20:39)
[2022-01-07] MEDS: thiamine 100 mg Tablet PO (08:03)
[2022-01-07] MEDS: ibuprofen 800 mg tablet PO (08:03)
[2022-01-07] MEDS: multivitamin therapeutic Tablet 1 TAB PO (08:03)
[2022-01-07] MEDS: benztropine 1 mg Tablet PO ×2 (08:04→18:38)
[2022-01-07] MEDS: pantoprazole DR 40 mg Tablet PO (08:04)
[2022-01-07] MEDS: fluoxetine 20 mg Capsule PO (08:04)
--- NOTE | 2022-01-07 10:55 | NPU.GN ---
[facility] Topic: Rodolfo Saab General Mood of Group: Patient did attend and participate in group today. Patients hygiene was good. Patient was social and seems more stable at this time per his discussion with this science writer..
[2022-01-07 14:00] VITALS: BP 129/81; PULSE 85; RESP 16; TEMP 36.3; O2SAT 99
--- NOTE | 2022-01-07 16:50 | W.PM.NPUPNS ---
Subjective NPU Subjective: Had a fairly lengthy discussion with patient about his substance abuse and how that and not people wandering around and getting into his stuff is the reason why he is in the hospital. We discussed the fact that the first time I saw him in December that I let him go when felt he needed more treatment he returned in 4 days and now is back again and we need to try to make sure that when he leaves this time we have actually had substantive improvement. Like the first time he is focused on getting back to his trailer and packing his things up does not what he is been possibly spent on most likely with these significant addiction numbers. Mental Status Exam MSE Comments: This is a well-nourished, well-developed white male in [facility] scrubs with limited grooming and eye contact.? He has numerous scrapes and scratches and abrasions on his hands arms and one in the middle of his forehead.? No abnormal movements except for mild psychomotor agitation.? Limited cooperation with exam in mild to moderate distress. Speech was increased rate and and mostly normal volume. Patient mood described as fine I need to go take care of my stuff, affect odd. Thought process, organized at times and disorganized at other times. Thought content: patient denied suicidal or homicidal ideations, no delusions reported but clear paranoid and persecutory delusions existed, and he denied any auditory or visual hallucinations. Attention and concentration are intact and memory is intermittently reliable but none were formally tested. He is alert and oriented three times. Insight and judgment are limited. Impulse control is limited. Vitals/I&O/Wt Last Vital Signs Temp 97.3 F L 01/07/22 14:00 Pulse 85 01/07/22 14:00 Resp 16 01/07/22 14:00 BP 129/81 01/07/22 14:00 Pulse Ox 99 01/07/22 14:00 Data NPU : 01/04/22 19:24 01/04/22 19:24 A&P Assessment and plan (1) Alcohol use disorder: Status: Acute (2) Suicidal ideation: Status: Acute (3) Methamphetamine abuse: Status: Acute (4) Acute psychosis: Status: Acute (5) COPD (chronic obstructive pulmonary disease): Status: Acute (6) Chronic low back pain with bilateral sciatica: Status: Acute Qualifiers: Back pain laterality: bilateral Qualified Code(s): M54.42 - Lumbago with sciatica, left side; M54.41 - Lumbago with sciatica, right side; G89.29 - Other chronic pain (7) Cannabis dependence, daily use: Status: Chronic (8) Schizoaffective disorder, bipolar type: Status: Chronic (9) Nicotine dependence, cigarettes, uncomplicated: Status: Chronic Plan This is a 51 year old white male with a history of schizoaffective disorder and cannabis dependence as well as recent methamphetamine use who presents clearly having some psychosis here for the third time in less than 30 days once again lobbying for discharge. Continue current medications and continue to offer an antipsychotic. Encourage individual, group and milieu therapy Continue q-15 minute check for safety Recommend sober living treatment at the highest level of care to which the patient is willing to commit. Given this is third hospitalization in less than 4 weeks we will consider whether using a 21-day hold to get him established on medication is warranted. Involuntary Hold Information 96 Hour Hold: 96 Hour Involuntary Admission: Yes 96 Hour Hold Ending Date: 01/11/22 96 Hour Hold Ending Time: 01:32 Attestations NPU Medical Necessity Statement*: Inpatient hospitalization is medically necessary and the clinically appropriate intervention at this time.? We will initiate medications and make changes as indicated.?? Likely length of stay 3-5 days Coding Level of Care Code Acute Search Optimization Analyst for Radha Charles Diagnoses Alcohol use disorder Suicidal ideation R45.851 Methamphetamine abuse F15.10 Acute psychosis F23 COPD (chronic obstructive pulmonary disease) J44.9 Chronic low back pain with bilateral sciatica M54.42; M54.41; G89.29 Back pain laterality: bilateral Cannabis dependence, daily use F12.20 Schizoaffective disorder, bipolar type F25.0 Nicotine dependence, cigarettes, uncomplicated F17.210
[2022-01-07] MEDS: quetiapine 300 mg Tablet PO (20:40)
[2022-01-07 20:42] VITALS: BP 112/75; PULSE 101; RESP 18; O2SAT 95
[2022-01-08] MEDS: OLANZapine 5 mg ODT PO ×4 (01:21→19:05)
[2022-01-08] MEDS: ibuprofen 800 mg tablet PO ×2 (04:01→13:20)
[2022-01-08] MEDS: LORazepam 2 mg Tablet PO (04:01)
--- NOTE | 2022-01-08 04:07 | PC.NURSE ---
0121 Patient is unable to sleep and is pacing, very restless. Zyprexa given for anxiety.
--- NOTE | 2022-01-08 04:08 | PC.NURSE ---
Patient is at the nurses station with a complaint of pain 9/10 in his back and r knee. He also has been trying to rest since giving him zyprexa approx 3 hours ago with no result. He is pacing up and down the roa and appears very restless. Patient is allergic to haldol and vistaril. Ativan given po as next step as it is too soon for more zyprexa which did not help.
--- NOTE | 2022-01-08 05:40 | PC.NURSE ---
Patient continued to pace and be anxious until approx 0520. Medication finally let patient rest.
--- NOTE | 2022-01-08 05:47 | PC.NURSE ---
Patient rested approx 15 minutes and is back up pacing and restless.
[2022-01-08 06:00] VITALS: BP 112/78; PULSE 89; RESP 15; O2SAT 99
[2022-01-08 07:38] VITALS: PULSE 68; RESP 16; O2SAT 98
[2022-01-08] MEDS: propranolol 20 mg Tablet 10 MG PO ×3 (08:02→20:38)
[2022-01-08] MEDS: fluoxetine 20 mg Capsule PO (08:02)
[2022-01-08] MEDS: quetiapine 100 mg Tablet PO (08:02)
[2022-01-08] MEDS: pantoprazole DR 40 mg Tablet PO (08:02)
[2022-01-08] MEDS: benztropine 1 mg Tablet PO ×2 (08:02→17:23)
[2022-01-08] MEDS: multivitamin therapeutic Tablet 1 TAB PO (08:02)
[2022-01-08] MEDS: folic acid 1 mg Tablet PO (08:02)
[2022-01-08] MEDS: thiamine 100 mg Tablet PO (08:02)
[2022-01-08] MEDS: acetaminophen 325 mg Tablet 650 MG PO (08:03)
--- NOTE | 2022-01-08 08:34 | PC.NURSE ---
PT PLEASANT UPON APPROACH THIS MORNING. DOES ENDORSE INCREASED ANXIETY AND BACK/LEG PAIN. DENIES SI/HI OR AVH. COOPERATIVE WITH CARE AT THIS TIME. TOOK PRN MEDS FOR PAIN AND ANXIETY.
--- NOTE | 2022-01-08 10:17 | PC.NURSE ---
PRN Medications Patient up to nurses station and c/o increased anxiety and pain. Administered Zydis 5 mg SL as ordered for anxiety and Tylenol 650 mg for back pain 05/18. Reassessed pain at 0850, patient reports back pain is a 6/10. States his pain is better. Informed patient he can PRN Ibuprofen at approximately 1130 AM. Patient verbalizes that's fine, I will make it. Patient informed this nurse that anxiety has improved somewhat. Remains in day area with peers watching TV.
--- NOTE | 2022-01-08 13:57 | PC.NURSE ---
PRN Medications Patient to nurses station and reports pain and anxiety. Requested PRN medications. This RN administered Ibuprofen 800 MG as ordered for back/knee pain rated 8/10 and Zydis 5 mg as ordered for anxiety. Reassessed at 1356, this RN observed patient sitting in chair dozing in and out of sleep. Aroused to verbal stimuli. Reports pain is still a 6/10, and has improved some. Patient states anxiety has improved and medication was effective. Currently up and roaming in hallways, requesting to be discharged. Educated patient on discharge process and no orders are currently in for him to dicharge at this time. Verbalized understanding.
[2022-01-08 14:00] VITALS: BP 115/76; PULSE 101; RESP 18; TEMP 36.7; O2SAT 99
--- NOTE | 2022-01-08 16:35 | P.NPUPN_ITS ---
Subjective NPU Subjective: Patient present today continuing the same theme of the past several days which is that he should be allowed to discharge home. Still trying to get to a place where he can acknowledge the significance of his addiction and the reason why people keep deciding that he needs to come to the hospital. Focused on needing to get back to his place to do things but not willing to talk about how his behavior is preventing him from doing what he needs to do when he is there. Still resistant to medication. Reports he is eating and sleeping fine. Mental Status Exam MSE Comments: This is a well-nourished, well-developed white male in [facility] scrubs with limited grooming and eye contact.? He has numerous scrapes and scratches and abrasions on his hands arms and one in the middle of his forehead.? No abnormal movements except for mild psychomotor agitation.? Limited cooperation with exam in no acute distress. Speech was mostly normal rate and volume. Patient mood described as fine I need to go take care of my stuff, affect odd. Thought process, organized at times and disorganized at other times. Thought content: patient denied suicidal or homicidal ideations, no delusions reported but clear paranoid and persecutory delusions existed, and he denied any auditory or visual hallucinations. Attention and concentration are intact and memory is intermittently reliable but none were formally tested. He is alert and oriented three times. Insight and judgment are limited. Impulse control is limited. Vitals/I&O/Wt Last Vital Signs Temp 98.0 F 01/08/22 14:00 Pulse 101 H 01/08/22 14:00 Resp 18 01/08/22 14:00 BP 115/76 01/08/22 14:00 Pulse Ox 99 01/08/22 14:00 Weight last 48 hrs Weight 80.824 kg Data NPU : 01/04/22 19:24 01/04/22 19:24 A&P Assessment and plan (1) Alcohol use disorder: Status: Acute (2) Suicidal ideation: Status: Acute (3) Methamphetamine abuse: Status: Acute (4) Acute psychosis: Status: Acute (5) Cannabis dependence, daily use: Status: Chronic (6) Schizoaffective disorder, bipolar type: Status: Chronic (7) Nicotine dependence, cigarettes, uncomplicated: Status: Chronic Plan This is a 51 year old white male with a history of schizoaffective disorder and cannabis dependence as well as recent methamphetamine use who presents clearly having some psychosis here for the third time in less than 30 days once again lobbying for discharge. Continue current medications and continue to offer an antipsychotic. Encourage individual, group and milieu therapy Continue q-15 minute check for safety Recommend sober living treatment at the highest level of care to which the patient is willing to commit. Given this is third hospitalization in less than 4 weeks we will consider whether using a 21-day hold to get him established on medication is warranted. Involuntary Hold Information 96 Hour Hold: 96 Hour Involuntary Admission: Yes 96 Hour Hold Ending Date: 01/11/22 96 Hour Hold Ending Time: 01:32 Attestations NPU Medical Necessity Statement*: Inpatient hospitalization is medically necessary and the clinically appropriate intervention at this time.? We will initiate m edications and make changes as indicated.?? Likely length of stay 1-3 days Coding Level of Care Code Acute Jointer Operator for Radha Fwd Diagnoses Alcohol use disorder Suicidal ideation R45.851 Methamphetamine abuse F15.10 Acute psychosis F23 Cannabis dependence, daily use F12.20 Schizoaffective disorder, bipolar type F25.0 Nicotine dependence, cigarettes, uncomplicated F17.210
--- NOTE | 2022-01-08 19:10 | PC.NURSE ---
PRN Medications Up to nurses station at 1713 c/o anxiety, Vistaril 50 mg given at [id number] as ordered. Upon re-assessment voices relief and medication was effective. At 1903 patient up to nurses station again, stating 'I'm angry and want to leave this fucking place, this is bullshit, I need something for anxiety. This RN explained the discharge process once again and the 96 hour hold. Rolls eyes at this RN. Administered Zydis 5 mg as ordred for anxiety. Will pass on to shift supervisor rn to monitor effectiveness. After patient took medication went to day area.
[2022-01-08] MEDS: quetiapine 300 mg Tablet PO (20:38)
[2022-01-08] MEDS: trazodone 50 mg Tablet PO (20:38)
[2022-01-08 20:57] VITALS: BP 123/74; PULSE 90; RESP 18; TEMP 36.3; O2SAT 97
--- NOTE | 2022-01-08 22:01 | PC.NURSE ---
2037-Trazodone given po for insomnia. It was not effective.
[2022-01-09] MEDS: OLANZapine 5 mg ODT PO ×2 (01:00→07:28)
[2022-01-09] MEDS: trazodone 50 mg Tablet PO (01:00)
--- NOTE | 2022-01-09 01:20 | PC.NURSE ---
0100 Patient at the nurses station stating he woke up in a sweat and was having bad dreams. He tried to go back to sleep but can't. Trazadone 50mg and Zyprexa 5 mg given for insomnia and anxiety.
[2022-01-09 02:40] VITALS: BMI 25.5
--- NOTE | 2022-01-09 02:58 | PC.NURSE ---
0150 Patient continues to be awake, in and out of his room. He requested materials to take a shower. Maybe this can relax him to possibly sleep.
--- NOTE | 2022-01-09 03:00 | PC.NURSE ---
Patient just up at the nurses station asking for ice water. He did not take a shower as of this note. He continues to pace coming in and out of his room frequently.
[2022-01-09 06:00] VITALS: BP 103/68; PULSE 84; RESP 19; TEMP 36.4; O2SAT 98
--- NOTE | 2022-01-09 08:19 | PC.NURSE ---
PT UP AND DOING WELL THIS MORNING. CALM AND COOPERATIVE. DID TAKE PRN MEDS FOR ANXIETY EARLIER THAT HAVE BEEN HELPFUL. COOPERATIVE WITH CARE THIS MORNING. INTERACTING WELL WITH OTHERS. APPROPRIATE AFFECT AND EYE CONTACT.
[2022-01-09 08:38] VITALS: PULSE 111; RESP 16; O2SAT 98
[2022-01-09] MEDS: multivitamin therapeutic Tablet 1 TAB PO (09:26)
[2022-01-09] MEDS: thiamine 100 mg Tablet PO (09:26)
[2022-01-09] MEDS: propranolol 20 mg Tablet 10 MG PO (09:26)
[2022-01-09] MEDS: ibuprofen 800 mg tablet PO (09:26)
[2022-01-09] MEDS: fluoxetine 20 mg Capsule PO (09:26)
[2022-01-09] MEDS: benztropine 1 mg Tablet PO (09:26)
[2022-01-09] MEDS: folic acid 1 mg Tablet PO (09:27)
[2022-01-09] MEDS: pantoprazole DR 40 mg Tablet PO (09:27)
[2022-01-09] MEDS: quetiapine 100 mg Tablet PO (09:27)
--- NOTE | 2022-01-09 10:55 | W.PM.NPUDCS ---
Diagnoses at Discharge Discharge Diagnosis (1) Alcohol use disorder: Status: Acute (2) Suicidal ideation: Status: Acute (3) Methamphetamine abuse: Status: Acute (4) Acute psychosis: Status: Resolved (5) Cannabis dependence, daily use: Status: Chronic Permanent problem details: Patient states he uses daily for pain management-reports having a medical marijuana card (6) Schizoaffective disorder, bipolar type: Status: Chronic (7) Nicotine dependence, cigarettes, uncomplicated: Status: Chronic Reason for Visit Reason for Visit: PSYCH EVAL Brief History: History of Present Illness Marty Rosas is a 51 year old male who presented to the emergency department with the following report: HPI: [51]yo patient w/ hx of depression BIBP for acute suicidal ideation, depression, and alcohol use. On arrival, the patient is AAOx3 and cooperative with my evaluation. No focal complaints of chest pain, shortness of breath, palpitations, N/V, focal GI/ complaints. Currnetly denies SI. No complaints of hallucinations. Onset: Unknown Duration: ongoing Location: home Severity: severe Associated symptoms: Deny chest pain, dyspnea, nausea, rash, palpitations or vomiting He was admitted to the neuropsychiatric unit for definitive treatment of those issues.? He presents today essentially with some reports of paranoia and persecutory thinking that he did our last encounter which was 12/11/2021.? Concerns existed for possible need for continued psychiatric care.? However he was allowed to leave but then return 4 days later and was hospitalized for 4 days.? Now he presents 16 days later with the same report.? The people are messing with his things that he tried to move out of his living circumstance and it was not for people messing with his things and interfering with his life there would be no problem.? Once again he was brought in by authorities this time he reports that a close friend had betrayed him and was sending messages to his ex-girlfriend and that we need to let him know because people are planning on stealing his belongings or as long as he can get wet etc.? When he presented at the beginning of this month he was advised that if I discharged him and he returned with similar reports then the concerns and assumptions that this is psychotic behavior would need to be explored further and a quick discharge would not be likely.? He denies any issues.? He presented last time positive for cannabis, amphetamines, and benzodiazepines in fact the last 2 visits in December today he presents having had a blood alcohol of 189 and still positive for cannabis.? We had a long discussion about our thought that his psychosis is related to his methamphetamine use which he denies.? And we explained that even with a negative screen for now his psychosis could be related to the methamphetamine still as well as possible withdrawal issues related to benzodiazepines.? We discussed our concerns and agreement with a 96-hour hold which he felt was unacceptable and mostly argued throughout the interview not answering questions only arguing for why he should not be in the hospital. Per his 12/16/2021 [facility] inpatient psychiatric evaluation: History of Present Illness Marty Rosas is a 51-year-old male admitted to the emergency department with the following report: HPI: [51]yo patient w/ hx of schizophrenia BIBA not taking medication presenting to the ED for On arrival, the patient is AAOx3 and cooperative with my evaluation.? Has disorganized thoughts.? Patient complains of sensations of parasitosis all over his body and mouth ass well as right-sided abdominal pain.? No focal complaints of chest pain, shortness of breath, palpitations, N/V, focal GI/ complaints. Currently denies SI/HI. His ex- filled out an affidavit which states Eduardo is diagnosed schizoaffective disorder.? He has had a couple of dramatic experiences since August.? Resulting in him starting to drink and do methamphetamine.? He also quit his meds.? He is having delusions.? He believes that he has parasites or worms under his skin and all through his body.? He has burning himself trying to burn the worms.? He also believes he is being targeted of a conspiracy against him.? He sees drones everywhere.? He has torn his camper apart thinking it is infested.? He thinks that people are moving his camper and that there is a magnet that is bending the frame.? He has made verbal threats against people where his camper resides.? He sees people coming through the ferris.? He is a danger to himself and others.? He is in stress unit now just do not want him to sign himself out. He was admitted to the neuropsychiatry for definitive treatment of these issues.? He says he is stressed out because everything in his life is messed up.? He is trying to move but cannot.? He says there are 20 people who are trying to obstruct what ever he does.? He says even when he leaves his trailer for a few minutes people come in and take things and move things around.? He went to the store to buy some cigarettes and some beer and when he came back his trailer had parasites which are now all over him.? He says that he can see that crawling on his skin.? He has many cuts and places on his skin.? Which he has caused by trying to get rid of these parasites.? He says that he put them in a sandwich bag and he tried to show them to people but they thought they were breadcrumbs.? He says that he is going to put things on the skin people who have not done this to him that water and soap on takeoff.? He says that he is going to beat them up and make them sorry that they have done these things to him.? He says that he has not been able to sleep because he is trying to sleep people are walking across his growth or knocking on the [place] and making noise in various ways.? He says that while he is here they are free to do what ever they want to do stuff and they will ruin everything that he has.? He said that the primary suspects are the owners of the land where he is living and his ex- who lives right across the street.? He said that he needed to go home.? When told that it was not safe to let him go he said that he was going to beat someone up here.? His drug screen was positive for methamphetamine, marijuana and benzodiazepines. He was just here a few days ago with the following admission note. 51-year-old male with a long history of psychiatric illness presents through the front door.? In the waiting room, he is restless, up walking around.? He shouts.? When brought back, he complains about bugs crawling out of his body.? He states the bugs are reproducing inside of them and hatching.? He shows us a bag of bread crumbs and tells us these are what is growing inside him.? He does also state that he has been off of his psychiatric medication, and would like to go back on his medication.? He has been self-medicating with drugs, likely amphetamine.? He denies any suicidality or homicidality, but does wish treatment.? He also believes his girlfriend is out to get him . MD complaint: altered mental status and other ?Onset (ago): day(s) ?Duration: constant and getting worse ?History of same: Yes ?Relieving factors: none ?Exacerbating factors: none ?Context: recent alcohol abuse and recent drug abuse ?Associated psychiatric symptoms: racing thoughts and delusions ?Associated symptoms: Reports visual hallucinations and delusions; ?Deny auditory hallucinations, homicidal ideation or suicidal ideation He was admitted to the neuropsychiatric unit for definitive treatment of those issues. The patient presents today reporting that he doesn?t know how many times he has been admitted to a psychiatric sahni nor his history of outpatient services though he did identify that he saw someone at [facility] and according to our records, the last visit that he had over at [facility] was September 08, 2021 and the first records in the system is an inpatient stay back in 2006. It appears that he has had 15 inpatient hospitalizations, the last one being in 2018 at this hospital at least. He is not currently taking any medications, or at the very least would not discuss medications and suggested that he is not taking them with the best accuracy but says that he does take them a lot of the time, including Seroquel, Neurotin, and Prozac. He is a fairly poor historian and focused on his likely paranoid and delusional thinking for most of the interview. He could be pulled away for some factual information as he did report smoking a pack of cigarettes every 2 to 3 days, having alcohol rarely, having his medical marijuana card, and denying other illicit drug use though he did seem to be having symptoms that would be consistent with methamphetamine use. The ED had not obtained a UDS and so we did obtain a UDS which was positive for amphetamines, marijuana and benzodiazepines. He reports he has never been to a rehab facility, never had a DUI but may have had some marijuana possessions charges. He spent most of the time talking about things like his phone being hacked and going down rabbit holes like that, but the echo of his story was that his girlfriend of 8 years, out of the blue, said that she was done with their relationship; he has a camper and she stated it would be fine if he stayed in the camper on the property but he had to give his keys to the house back which started a major confrontation with him being upset about losing the relationship and going from an equal partner in the house to having to make sure she is awake to come in and use the bathroom. So he reports he moved all of his stuff across the street, back in September of 2021. He reports that the next week his father so he had to go to [place] which he reports was not a great trip as his family has all kinds of tough entanglements and conflicts with one another. He was mostly focused on feeling like, since he has moved into his camper, feeling like people have been disconnecting things, vandalizing, burglarizing, and now the owner/photographer of the property that he moved to across the street says that he needs to leave so he is trying to get his stuff together to do that. He believes that someone also has infected his area around his home, his home as well as the place inside it with some parasite which has caused him to have all these bites which resemble pick harris from methamphetamine addiction but he believes fully to be parasites and refers to as such. He reports he has had one suicide in the past but denies self-injurious behaviors, He doesn?t believe anything is wrong with him and denies any need for medication changes. Ultimately, he wanted to discharge and we discussed the fact that it was our assessment that he needed to stabilize and needed to stay. He, however, was very clear that he had no intention to hurt himself or anyone else and that it was supposed to rain so he needed to go collect his stuff so he doesn?t lose everything. We discussed the risks, benefits and alternatives of us getting the UDS which had not been back at this time, and that after getting the UDS we would make some assessment about whether it was safe to allow him to leave against medical advice and he understood and agreed to proceed as is documented in this note. Hospital Course Hospital Course Molina slowly acclimated to the individual, group and milieu therapies provided. This has been his third hospitalization in the month of December with both hospitalizations positive for methamphetamine this 1 he was not positive for methamphetamine but his alcohol level was 189. He was on a 96-hour hold and he spent most of the time denying addiction and blaming others for his circumstance. We spent a lot of time discussing the impact of his addiction on his presentation. He was continued on his home medications which likely were not being taken appropriately prior to admission and he had marked improvement. He was able to contract for safety outside of the hospital prior to discharge. During the hospitalization, patient had routine laboratory studies which were within normal limits except for few outliers. Additionally there was a general medical evaluation which was also within normal limits and revealed no new acute processes. Discharge Summary: At the time of discharge, he denied psychosis or lethality. Mood and anxiety were well managed. Patient endorsed a plan to avoid all drugs of abuse and follow-up with the aftercare recommendations of the treatment team. Patient was evaluated and deemed to be absent credible lethality, and had achieved the maximum benefit from an inpatient hospitalization, so was discharged. Involuntary Hold Information 96 Hour Hold: 96 Hour Involuntary Admission: Yes 96 Hour Hold Ending Date: 01/11/22 96 Hour Hold Ending Time: 01:32 Mental Status Exam MSE Comments: This is a well-nourished, well-developed white male in [place] [facility] scrubs with limited grooming and eye contact.? He has numerous scrapes and scratches and abrasions on his hands arms and one in the middle of his forehead.? No abnormal movements except for mild psychomotor agitation.? Limited cooperation with exam in no acute distress. Speech was mostly normal rate and volume. Patient mood described as fine I need to go take care of my stuff, affect odd. Thought process, organized at times and disorganized at other times. Thought content: patient denied suicidal or homicidal ideations, no delusions reported but clear paranoid and persecutory delusions existed, and he denied any auditory or visual hallucinations. Attention and concentration are intact and memory is intermittently reliable but none were formally tested. He is alert and oriented three times. Insight and judgment are limited. Impulse control is limited. Discharge Data Studies Completed and Pending: Laboratory Results WBC 7.7 10^3/uL (4.0- 10.0) 01/04/22 19:24 RBC 5.28 10^6/uL (4.1 -5.3) 01/04/22 19:24 Hgb 16.5 g/dL (11.7-1 6.6) 01/04/22 19:24 Hct 49.1 % (42.0-52.0 ) 01/04/22 19: MCV 93.0 fl (80-94) 01/04/22 19: MCH 31.3 pg (28.0-34. 0) 01/04/22 19: MCHC 33.6 g/dL (30.0-3 6.0) 01/04/22 19: RDW 13.6 % (12.1-15.1 ) 01/04/22 19: Plt Count 264 10^3/cmm (130 -400) 01/04/22 19:24 MPV 9.5 fL (7.4-10.4) 01/04/22 19: Neut % (Auto) 56.0 % 01/04/22 19: Lymph % (Auto) 35.8 % 01/04/22 19: [place] % (Auto) 5.3 % 01/04/22 19: Eos % (Auto) 2.3 % 01/04/22 19: Baso % (Auto) 0.5 % 01/04/22 19: Neut # (Auto) 4.31 10^3/uL (1.8 -7.7) 01/04/22 19: Lymph # (Auto) 2.8 10^3/uL (0.8- 4.8) 01/04/22: [place] # (Auto) 0.4 10^3/uL (0.2- 0.9) 01/04/22 19:24 Eos # (Auto) 0.2 10^3/uL (0.0- 0.8) 01/04/22: Baso # (Auto) 0.0 10^3/uL (0.0- 0.1) 01/04/22 19: Nucleated RBC % (a uto) 0 % 01/04/22: Nucleated RBCs # 0.0 /100WBC 01/04/22 19:24 Sodium 140 mmol/L (136-1 45) 01/04/22 19:24 Potassium 3.8 mmol/L (3.5-5 .1) 01/04/22 19:24 Chloride 104 mmol/L (98-10 7) 01/04/22 19:24 Carbon Dioxide 20 mmol/L (22-29) L 01/04/22 19:24 Anion Gap 19.8 (5-19) H 01/04/22 19:24 BUN 10 mg/dL (6-20) 01/04/22 19:24 Creatinine 0.7 mg/dL (0.7-1. 2) 01/04/22 19:24 GFR Calculation 119.4 mL/min (90- 130) 01/04/22 19:24 Glucose 88 mg/dL (65-115) 01/04/22 19:24 Calculated Osmolal ity 288 mOsm/kg (285- 295) 01/04/22 19:24 Calcium 9.6 mg/dL (8.5-10 .5) 01/04/22 19:24 Total Bilirubin 0.3 mg/dL (0.15-1 .2) 01/04/22 19:24 AST 63 U/L (0-40) H 01/04/22 19:24 ALT 43 U/L (0-41) H 01/04/22 19:24 Alkaline Phosphata se 105 IU/L (40-130) 01/04/22 19:24 Total Protein 7.5 g/dL (6.6-8.7 ) 01/04/22 19:24 Albumin 4.9 g/dL (3.5-5.2 ) 01/04/22 19:24 Globulin 2.6 g/dL (1.3-4.6 ) 01/04/22 19:24 Lipase 33 U/L (13-60) 01/04/22 19:24 Urine Color Yellow (Yellow) 01/04/22 20:00 Urine Appearance Clear (CLEAR) 01/04/22 20:00 Urine pH 5 (5-7) 01/04/22 20:00 Ur Specific Gravit y 1.010 (1.005-1.0 30) 01/04/22 20:00 Urine Protein Neg (Negative) 01/04/22 20:00 Urine Glucose (UA) Norm (Normal) 01/04/22 20:00 Urine Ketones Negative (Negati ve) 01/04/22 20:00 Urine Blood Neg (Negative) 01/04/22 20:00 Urine Nitrate Negative (Negati ve) 01/04/22 20:00 Urine Bilirubin Neg (Negative) 01/04/22 20:00 Urine Urobilinogen Neg mg/dL (Negati ve) 01/04/22 20:00 Ur Leukocyte Ericka ase Negative (Negati ve) 01/04/22 20:00 Salicylates < 0.3 mg/dL (3-10 ) L 01/04/22 19:24 Urine Opiates Scre en Negative ng/mL (N egative) 01/04/22 20:00 Acetaminophen < 5.0 ug/mL (10-3 0) L 01/04/22 19:24 Ur Barbiturates Sc reen Negative ng/mL (N egative) 01/04/22 20:00 Ur Phencyclidine S crn Negative ng/mL (N egative) 01/04/22 20:00 Ur Amphetamines Sc reen Negative ng/mL (N egative) 01/04/22 20:00 U Benzodiazepines Scrn Negative ng/mL (N egative) 01/04/22 20:00 Urine Cocaine Scre en Negative ng/mL (N egative) 01/04/22 20:00 U Marijuana (THC) Screen Positive ng/mL (N egative) H 01/04/22 20:00 Ethyl Alcohol 189 mg/dL (0-10) H 01/04/22 19:24 Vitals: Last Vital Signs Temp 97.6 F 01/09/22 06:00 Pulse 111 H 01/09/22 08:38 Resp 16 01/09/22 08:38 BP 103/68 01/09/22 06:00 Pulse Ox 98 01/09/22 08:38 Discharge Plan Discharge Patient Disposition: Home Condition: Stable Prescriptions: New Vitamin B-1 (mononitrate) 100 mg Tablet 100 mg PO DAILY 30 Days Qty: 30 1RF Continued propranolol 10 mg tablet 10 mg PO TID 0RF ProAir HFA 90 mcg/actuation HFA aerosol inhaler 2 puff INHALATION QID PRN (Reason: Wheezing) 0RF Rx Instructions: 2 puffs every 6 hours PRN Cogentin 1 mg PO BEDTIME 0RF quetiapine 100 mg PO DAILY 0RF Rx Instructions: Take in AM quetiapine 300 mg PO BEDTIME 0RF fluoxetine 20 mg Capsule 40 mg PO DAILY 0RF cyproheptadine 4 mg Tablet 4 mg PO BEDTIME 0RF gabapentin 300 mg PO TID 0RF omeprazole 20 mg Capsule,Delayed Release(Dr/Ec) 20 mg PO DAILY 0RF gemfibrozil 600 mg PO BID 0RF Discharge Orders: Discharge Order (Routine); Ordered 01/09/22 Ordered By: Josr Jones Referrals: [facility] [Other] - 4-7 days (The [facility] will assist with needed services and may be able to finance some services.) Jasson Torres MD [Primary Care Provider] - Discharge Diet: Regular Discharge Activity: Resume usual activity Patient Instructions: Alcohol Abuse, Alcoholism, Methamphetamine Abuse, Opioid Safety Discharge Attestations NPU Time Spent in Discharge Care*: less than 30 min Specific Discharge Activities: Specific discharge activities: educating patient, discussing with correctional case manager/social workers/dc planners, documenting/other paperwork and evaluating patient/reviewing data Coding Level of Care Code Acute Chg FW DC note Diagnoses Alcohol use disorder Suicidal ideation R45.851 Methamphetamine abuse F15.10 Acute psychosis F23 Cannabis dependence, daily use F12.20 Schizoaffective disorder, bipolar type F25.0 Nicotine dependence, cigarettes, uncomplicated F17.210
[2022-01-09 11:00] VITALS: BP 103/68; PULSE 84; RESP 16; TEMP 36.4; O2SAT 98
--- NOTE | 2022-01-09 11:54 | PC.NURSE ---
Discharged from NPU at 1150 AM. Denies all SI/HI and AVH at this time. Vitals stable. Reports pain is WNL. Ambulatory, gait normal. Discharged with all belongings and one 20 dollar bill, 6 one dollar bills and one dime. Belongings list and Valuable envelope signed at discharge. Leaving via [employer]. No distress noted at time of discharge. A&O times four. Discharge papers given and education provided. All questions answered and support voiced.
== END 2022-01-09 11:50 | disposition home or self-care (01) | DRG 897 ==
LOC: ER 01-05 01:35 → NP 01-05 02:16
PROVIDERS: Emergency Medicine; Admitting Provider Psychiatry & Neurology Psychiatry; Emergency Provider Emergency Medicine; PCP Family Medicine Adult Medicine; Visit Provider Psychiatry & Neurology Psychiatry
DX: F15.150 Other stimulant abuse with stimulant-induced psychotic disorder with delusions (principal); F23 Brief psychotic disorder; R45.851 Suicidal ideations; F25.0 Schizoaffective disorder, bipolar type; F12.20 Cannabis dependence, uncomplicated; F15.10 Other stimulant abuse, uncomplicated; F10.10 Alcohol abuse, uncomplicated; Y90.6 Blood alcohol level of 120-199 mg/100 ml; J44.9 Chronic obstructive pulmonary disease, unspecified
CPT/HCPCS: 80053; 80306; 80307; 81003; 83690; 85025; 97150; 97165; 99285; J1630; J2060

== ENCOUNTER 2022-01-27 13:58 | Emergency (ER) | payer MEDICAID, SELFPAY ==
[2022-01-27 14:22] VITALS: PULSE 94; RESP 22; TEMP 37.3; O2SAT 98
--- NOTE | 2022-01-27 15:05 | PC.NURSE ---
[facility] bed 3, sitter with patient. No distress noted.
--- NOTE | 2022-01-27 15:07 | ED.C_ITS ---
HPI - Psych General: Chief Complaint: Psychiatric Symptoms Stated Complaint: anxiety attacks / fainting Time Seen by Provider: 01/27/22 14:52 PFSH ED PFSH: Medical History Cannabis dependence, daily use Patient states he uses daily for pain management-reports having a medical marijuana card Cervical disc disorder at C4-C5 level with radiculopathy Chronic low back pain with bilateral sciatica COPD (chronic obstructive pulmonary disease) Encounter to establish care Esophageal stricture Hyperlipidemia Hypertension Nicotine dependence, cigarettes, uncomplicated Prediabetes Psychiatric care Radiculopathy of cervical region Radiculopathy of lumbosacral region Right upper quadrant abdominal pain Schizoaffective disorder, bipolar type Surgical History H/O esophagogastroduodenoscopy (11/24/21) Disimpaction of food bolus History of ankle surgery left History of arthroscopic knee surgery Social History Alcohol intake: former Adopted: Yes History of recent travel: No Course Vital Signs: Vital signs: Vital Signs Temperature 99.2 F 01/27/22 14:22 Pulse Rate 94 01/27/22 14:22 Respiratory Rate 22 H 01/27/22 14:22 Pulse Oximetry 98 01/27/22 14:22 Discharge Plan Discharge Patient Disposition: Admitted As Inpatient Clinical Impression: Anxiety, Psychosis, Depression with suicidal ideation Condition: Stable Coding Level of Care Code ED Medical Auditor for Radha Charles
--- NOTE | 2022-01-27 15:15 | W.ED.GENADLT ---
HPI - General Adult General: Chief complaint: Psychiatric Symptoms Stated complaint: anxiety attacks / fainting Time Seen by Provider: 01/27/22 14:52 History of Present Illness: HPI: [51]yo patient w/ hx of depression and axiety presented for worsening anxiety, suicidal ideation with plan. Patient tells me that he is feeling incredibly anxious since his discharge from hospital last time. Patient tells me that he has plans to hang himself if he goes home. Patient also reports to hearing voices. On arrival, the patient is AAOx3 and cooperative with my evaluation. No focal complaints of chest pain, shortness of breath, palpitations, N/V, focal GI/ complaints. Currently denies HI. No complaints of hallucinations. Onset: acute on chronic Duration: ongoing Location: home Severity: severe Associated symptoms: Deny chest pain, dyspnea, nausea, rash, palpitations or vomiting Review of Systems Const: Denies: fever(s) or chills Eyes: Denies: change in vision ENMT: Denies: mouth pain Card: Denies: chest pain or palpitations Resp: Denies: dyspnea or non-productive cough GI: Denies: abdominal pain, nausea, vomiting or diarrhea : Denies: dysuria Musc: Denies: extremity pain Skin/Breast: Denies: rash or new lesions Neuro: Denies: weakness in extremities Psych: Reports: anxiety, depression, auditory hallucinations and suicidal ideation Al/Lymph: Denies: easy bruising PFSH ED PFSH: Medical History Cannabis dependence, daily use Patient states he uses daily for pain management-reports having a medical marijuana card Cervical disc disorder at C4-C5 level with radiculopathy Chronic low back pain with bilateral sciatica COPD (chronic obstructive pulmonary disease) Encounter to establish care Esophageal stricture Hyperlipidemia Hypertension Nicotine dependence, cigarettes, uncomplicated Prediabetes Psychiatric care Radiculopathy of cervical region Radiculopathy of lumbosacral region Right upper quadrant abdominal pain Schizoaffective disorder, bipolar type Surgical History H/O esophagogastroduodenoscopy (11/24/21) Disimpaction of food bolus History of ankle surgery left History of arthroscopic knee surgery Social History Alcohol intake: former Adopted: Yes History of recent travel: No Physical Exam Const: COMMON NORMALS: alert HENMT: COMMON NORMALS: atraumatic HEAD & SCALP: atraumatic MOUTH: moist mucous membranes not abnormal Eye: COMMON NORMALS: EOMs intact bilaterally and conjunctivae normal CONJUNCTIVA: Yes conjunctivae normal Neck/C-Spine: COMMON NORMALS: full ROM and supple Resp: COMMON NORMALS: normal respiratory effort and clear to auscultation bilaterally AUSCULTATION: clear to auscultation bilaterally Cardio: COMMON NORMALS: regular rate RATE: regular rate GI: COMMON NORMALS: Soft to palpation and non-tender PALPATION: Yes Soft to palpation Extremity: COMMON NORMALS: full ROM Neuro: SENSORIUM/ORIENTATION: Yes alert MOTOR EXAM: No Abnormal motor strength present and Other motor observations present (no focal motor deficits) Psych: COMMON NORMALS: speech normal SPEECH: Yes normal speech MOOD & AFFECT: Yes depressed mood Course Vital Signs: Vital signs: Vital Signs Temperature 97.9 F 01/28/22 08:06 Pulse Rate 76 01/28/22 08:06 Respiratory Rate 18 01/28/22 08:06 Blood Pressure 120/70 01/28/22 08:06 Pulse Oximetry 97 01/28/22 08:06 MDM - General Adult Medical Decision Making [51]yo patient w/ hx of anxiety and depression presenting for SI with possible plan and anxiety. +Auditory hallucinations. HDS, exam within normal limit Thoughts are linear and organized, and the patient has no VH, or HI. Clinically the patient displays no overt toxidrome; they are well appearing, with low suspicion for toxic ingestion given history and exam. Symptoms unlikely 2/2 anemia, hypothyroidism, infection, or ICH. Workup: CBC, CMP, Lipase, salicylate/tylenol, UDS Lab findings: wnl [4:30pm] On reassessment, labs and workup wnl. Patient is hemodynamically stable with no acute medical complaints. Case discussed with psychiatric provider Dr. Jones at [facility] psych inpatient recommend inpatient admission. However, patient has an active conflict with another patient in our inpatient psych facility. I have discussed with Dr. Jones. Patient feels adamantly that he needs to stay and tells me that he wants to shoot myself if he does not get help today. Disposition: transfer to outside psych facility Lab Data : 01/27/22 17:00 01/27/22 17:00 Laboratory Results WBC 6.1 10^3/uL (4.0-10.0) 01/27/22 17:00 RBC 3.91 10^6/uL (4.1-5.3) L 01/27/22 17:00 Hgb 12.7 g/dL (11.7-16.6) 01/27/22 17:00 Hct 37.0 % (42.0-52.0) L 01/27/22 17:00 MCV 94.6 fl (80-94) H 01/27/22 17:00 MCH 32.5 pg (28.0-34.0) 01/27/22 17:00 MCHC 34.3 g/dL (30.0-36.0) 01/27/22 17:00 RDW 14.2 % (12.1-15.1) 01/27/22 17:00 Plt Count 249 10^3/cmm (130-400) 01/27/22 17:00 MPV 10.3 fL (7.4-10.4) 01/27/22 17:00 Neut % (Auto) 50.8 % 01/27/22 17:00 Lymph % (Auto) 37.3 % 01/27/22 17:00 Hendry % (Auto) 7.3 % 01/27/22 17:00 Eos % (Auto) 3.5 % 01/27/22 17:00 Baso % (Auto) 0.8 % 01/27/22 17:00 Neut # (Auto) 3.08 10^3/uL (1.8-7.7) 01/27/22 17:00 Lymph # (Auto) 2.3 10^3/uL (0.8-4.8) 01/27/22 17:00 Hendry # (Auto) 0.4 10^3/uL (0.2-0.9) 01/27/22 17:00 Eos # (Auto) 0.2 10^3/uL (0.0-0.8) 01/27/22 17:00 Baso # (Auto) 0.1 10^3/uL (0.0-0.1) 01/27/22 17:00 Nucleated RBC % (auto) 0 % 01/27/22 17:00 Nucleated RBCs # 0.0 /100WBC 01/27/22 17:00 Sodium 136 mmol/L (136-145) 01/27/22 17:00 Potassium 3.4 mmol/L (3.5-5.1) L 01/27/22 17:00 Chloride 104 mmol/L (98-107) 01/27/22 17:00 Carbon Dioxide 19 mmol/L (22-29) L 01/27/22 17:00 Anion Gap 16.4 (5-19) 01/27/22 17:00 BUN 15 mg/dL (6-20) 01/27/22 17:00 Creatinine 0.6 mg/dL (0.7-1.2) L 01/27/22 17:00 GFR Calculation 142.6 mL/min (90-130) H 01/27/22 17:00 Glucose 145 mg/dL (65-115) H 01/27/22 17:00 Calculated Osmolality 285 mOsm/kg (285-295) 01/27/22 17:00 Calcium 8.0 mg/dL (8.5-10.5) L 01/27/22 17:00 Total Bilirubin 0.2 mg/dL (0.15-1.2) 01/27/22 17:00 AST 44 U/L (0-40) H 01/27/22 17:00 ALT 31 U/L (0-41) 01/27/22 17:00 Alkaline Phosphatase 117 IU/L (40-130) 01/27/22 17:00 Total Protein 6.3 g/dL (6.6-8.7) L 01/27/22 17:00 Albumin 3.7 g/dL (3.5-5.2) 01/27/22 17:00 Globulin 2.6 g/dL (1.3-4.6) 01/27/22 17:00 Lipase 87 U/L (13-60) H 01/27/22 17:00 TSH 0.39 uIU/mL (0.27-4.20) 01/27/22 17:00 Free T4 0.78 ng/dL (0.82-1.77) L 01/27/22 17:00 Salicylates < 0.3 mg/dL (3-10) L 01/27/22 17:00 Urine Opiates Screen Negative ng/mL (Negative) 01/27/22 19:44 Acetaminophen < 5.0 ug/mL (10-30) L 01/27/22 17:00 Ur Barbiturates Screen Negative ng/mL (Negative) 01/27/22 19:44 Ur Phencyclidine Scrn Negative ng/mL (Negative) 01/27/22 19:44 Ur Amphetamines Screen Negative ng/mL (Negative) 01/27/22 19:44 U Benzodiazepines Scrn Negative ng/mL (Negative) 01/27/22 19:44 Urine Cocaine Screen Negative ng/mL (Negative) 01/27/22 19:44 U Marijuana (THC) Screen Positive ng/mL (Negative) H 01/27/22 19:44 Ethyl Alcohol < 10 mg/dL (0-10) 01/27/22 17:00 SARS-CoV-2 Ag (Rapid) Negative (Negative) 01/27/22 23:01 Discharge Plan Discharge Patient Disposition: Transfer to ED Clinical Impression: Anxiety, Depression with suicidal ideation Condition: Stable Prescriptions: New Vistaril 25 mg capsule 25 mg PO BID PRN (Reason: anxiety) 15 Days Qty: 30 0RF No Action propranolol 10 mg tablet 10 mg PO TID 0RF albuterol sulfate [ProAir HFA] 90 mcg/actuation HFA aerosol inhaler 2 puff INHALATION QID PRN (Reason: Wheezing) 0RF Rx Instructions: 2 puffs every 6 hours PRN benztropine [Cogentin] 1 mg Tablet 1 mg PO DAILY Qty: 0 0RF quetiapine 100 mg Tablet 100 mg PO DAILY Qty: 0 0RF Rx Instructions: Take in AM quetiapine 300 mg Tablet 300 mg PO BEDTIME Qty: 0 0RF fluoxetine 20 mg Capsule 40 mg PO DAILY 0RF cyproheptadine 4 mg Tablet 4 mg PO BEDTIME 0RF gabapentin 300 mg Capsule 300 mg PO TID Qty: 0 0RF omeprazole 20 mg Capsule,Delayed Release(Dr/Ec) 20 mg PO DAILY 0RF gemfibrozil 600 mg Tablet 600 mg PO BID Qty: 0 0RF thiamine mononitrate (vit B1) [Vitamin B-1 (mononitrate)] 100 mg Tablet 100 mg PO DAILY 30 Days Qty: 30 1RF Referrals: Torres,Jasson, MD [Primary Care Provider] - Discharge Diet: Advance as tolerated Discharge Activity: Increase activity as tolerated Patient Instructions: Depression (ED) Activity Restrictions/Additional Instructions: Please come back to the emergency room if you need help, have any hallucinations, or you have any depression or have thoughts about hurting yourself or other people. Coding Level of Care Code ED Carrot Harvester for Radha Fwd Exam Comprehensive
[2022-01-27] MEDS: LORazepam 2 mg Tablet PO (16:06)
--- NOTE | 2022-01-27 16:50 | PC.NURSE ---
Patient states he is seeing flying bugs and lights around him, and he can hear them.
--- NOTE | 2022-01-27 16:52 | PC.PHAR ---
PT STATES HE HAS NOT TAKEN HIS MEDICATIONS FOR A WHILE. VERIFIED MEDICATION WITH [facility]. PT STATES THIS IS THE ONLY PHARMACY HE USES. ALL MEDICATIONS LAST FILLED 11/09/21 30 DAY SUPPLY.
[2022-01-27 17:21] LABS: Basophils # 0.1 10^3/uL (0.0-0.1); Basophils % 0.8 %; Eosinophils # 0.2 10^3/uL (0.0-0.8); Eosinophils % 3.5 %; Hemoglobin 12.7 g/dL (11.7-16.6); Lymphocytes # 2.3 10^3/uL (0.8-4.8); Lymphocytes % 37.3 %; Mean Corpuscular HGB Conc 34.3 g/dL (30.0-36.0); Mean Corpuscular Hemoglobin 32.5 pg (28.0-34.0); Mean Corpuscular Volume 94.6 fl (80-94); Mean Platelet Volume 10.3 fL (7.4-10.4); Monocytes # 0.4 10^3/uL (0.2-0.9); Monocytes % 7.3 %; Neutrophils # 3.08 10^3/uL (1.8-7.7); Neutrophils % 50.8 %; Nucleated Red Blood Cells % 0 %; Platelet Count 249 10^3/cmm (130-400); Red Blood Count 3.91 10^6/uL (4.1-5.3); Red Cell Distribution Width 14.2 % (12.1-15.1); White Blood Count 6.1 10^3/uL (4.0-10.0)
[2022-01-27 17:41] LABS: Alanine Aminotransferase 31 U/L (0-41); Albumin Level 3.7 g/dL (3.5-5.2); Alkaline Phosphatase 117 IU/L (40-130); Blood Urea Nitrogen 15 mg/dL (6-20); Carbon Dioxide 19 mmol/L (22-29); Chloride 104 mmol/L (98-107); Globulin 2.6 g/dL (1.3-4.6); Glomerular Filtration Rate 142.6 mL/min (90-130); Glucose 145 mg/dL (65-115); Lipase 87 U/L (13-60); Osmolality Calculated 285 mOsm/kg (285-295); Sodium 136 mmol/L (136-145); Total Bilirubin 0.2 mg/dL (0.15-1.2); Total Protein 6.3 g/dL (6.6-8.7)
[2022-01-27 17:42] LABS: Acetaminophen < 5.0 ug/mL (10-30); Anion Gap 16.4 (5-19); Aspartate Amino Transferase 44 U/L (0-40); Potassium 3.4 mmol/L (3.5-5.1); Salicylate < 0.3 mg/dL (3-10)
--- NOTE | 2022-01-27 17:51 | PC.NURSE ---
Patient given safe meal.
--- NOTE | 2022-01-27 18:09 | PC.NURSE ---
Patient moved to room 8 once cleaned, he is now in room 8, sitter at bedside, belongings going into cabinet.
[2022-01-27 20:15] LABS: Amphetamines Screen Urine Negative (Negative); Cocaine Screen Urine Negative (Negative); PCP Screen Urine Negative (Negative); THC Screen Urine Positive (Negative)
[2022-01-27 20:16] LABS: Barbiturates Screen Urine Negative (Negative); Benzodiazepines Screen Urine Negative (Negative); Opiate Screen Urine Negative (Negative)
--- NOTE | 2022-01-27 22:44 | ECG_ITS ---
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 Measurements Intervals [place] Rate: 80 P: -89 GA: 108 QRS: 58 QRSD: 79 T: 70 QT: 368 QTc: 425 Interpretive Statements Ectopic atrial rhythm ABNORMAL RHYTHM ECG Compared to ECG 10/09/2017 10:12:47 Sinus rhythm no longer present Electronically Signed On 01-28-2022 23:20:32 CDT by Linda Thakur M.D. [email or web address]
[2022-01-27 23:00] VITALS: BP 118/76; PULSE 80; RESP 15; O2SAT 99
--- NOTE | 2022-01-27 23:15 | PC.NURSE ---
Pt chart faxed to [facility] at this time for review per PHIL Jordan
[2022-01-27 23:18] LABS: Free T4 Free Thyroxine 0.78 ng/dL (0.82-1.77); Thyroid Stimulating Hormone 0.39 uIU/mL (0.27-4.20)
[2022-01-27 23:19] LABS: Alcohol Level < 10 mg/dL (0-10)
[2022-01-27 23:31] LABS: SARS Covid-2 Antigen Negative (Negative)
--- NOTE | 2022-01-28 06:00 | PC.NURSE ---
contacted [facility] for update on patient placement. Per Rochelle, RN chart is being reviewed at this time.
[2022-01-28 06:30] VITALS: BP 149/77; PULSE 71; RESP 19; O2SAT 96
--- NOTE | 2022-01-28 06:35 | PC.NURSE ---
Rochelle Santiago with [facility] called to say pt has [place] medicaid and would not have coverage for treatment there. Pt still has the option to have services there, but would be responsible for the bill. Pt has declined at this time to continue with placement to [facility] due to not being able to pay bill.
[2022-01-28 08:06] VITALS: BP 120/70; PULSE 76; RESP 18; TEMP 36.6; O2SAT 97
[2022-01-28] MEDS: LORazepam 2 mg Tablet PO (10:59)
[2022-01-28 12:00] VITALS: BP 124/80; PULSE 82; RESP 18; TEMP 37.2; O2SAT 97
--- NOTE | 2022-01-28 13:22 | PC.NURSE ---
Report called to Pamela Barrett at [facility].
--- NOTE | 2022-01-28 16:19 | PC.NURSE ---
EMS here to transport patient to next facility. Personal items removed to filing cabinet and sent with EMS.
--- NOTE | 2022-02-03 13:04 | DCPLANNER ---
conference center manager had message to speak with patient about services at [facility]. conference center manager was unable to speak with patient at this time. According to patients chart, he has services set up at [facility], nothing is currently scheduled for future appointments. Patient was seen in December by his contract management specialist and by therapy services.
== END 2022-01-28 16:40 ==
PROVIDERS: Emergency Medicine; Emergency Provider Emergency Medicine; PCP Family Medicine Adult Medicine
DX: F41.8 Other specified anxiety disorders (principal); R45.851 Suicidal ideations; Z79.51 Long term (current) use of inhaled steroids
CPT/HCPCS: 80053; 80306; 80307; 83690; 84439; 84443; 85025; 87426; 93005; 99285

== ENCOUNTER 2022-03-07 15:55 | Inpatient (IN) | payer MEDICAID, SELFPAY ==
[2022-03-07 15:59] VITALS: BP 128/63; PULSE 86; RESP 22; TEMP 36.9; O2SAT 98; BMI 22.9
--- NOTE | 2022-03-07 16:28 | ED_ITS ---
HPI - General Adult General: Chief complaint: Psychiatric Symptoms Stated complaint: Anxiety, Says he is dehydrated Time Seen by Provider: 03/07/22 16:10 History of Present Illness: HPI: [41]yo patient w/ hx of schizoaffective disorder presenting for worsening depression with plan to hang himself. On arrival, the patient is AAOx3 and cooperative with my evaluation. No focal complaints of chest pain, shortness of breath, palpitations, N/V, focal GI/ complaints. Currently denies HI. Reports auditory and visual hallucination Onset: acute on chronic Duration: ongoing Location: home Severity: severe Associated symptoms: Deny chest pain, dyspnea, nausea, rash, palpitations or vomiting Review of Systems Const: Denies: fever(s) or chills Eyes: Denies: change in vision ENMT: Denies: mouth pain Card: Denies: chest pain or palpitations Resp: Denies: dyspnea or non-productive cough GI: Denies: abdominal pain, nausea, vomiting or diarrhea : Denies: dysuria Musc: Denies: extremity pain Skin/Breast: Denies: rash or new lesions Neuro: Denies: weakness in extremities Psych: Reports: depression, visual hallucinations, auditory hallucinations and suicidal ideation Al/Lymph: Denies: easy bruising PFSH ED PFSH: Medical History Cannabis dependence, daily use Patient states he uses daily for pain management-reports having a medical marijuana card Cervical disc disorder at C4-C5 level with radiculopathy Chronic low back pain with bilateral sciatica COPD (chronic obstructive pulmonary disease) Encounter to establish care Esophageal stricture Hyperlipidemia Hypertension Nicotine dependence, cigarettes, uncomplicated Prediabetes Psychiatric care Radiculopathy of cervical region Radiculopathy of lumbosacral region Right upper quadrant abdominal pain Schizoaffective disorder, bipolar type Surgical History H/O esophagogastroduodenoscopy (11/24/21) Disimpaction of food bolus History of ankle surgery left History of arthroscopic knee surgery Social History Alcohol intake: former Adopted: Yes History of recent travel: No Physical Exam Const: COMMON NORMALS: alert HENMT: COMMON NORMALS: atraumatic HEAD & SCALP: atraumatic MOUTH: moist mucous membranes not abnormal Eye: COMMON NORMALS: EOMs intact bilaterally and conjunctivae normal CONJUNCTIVA: Yes conjunctivae normal Neck/C-Spine: COMMON NORMALS: full ROM and supple Resp: COMMON NORMALS: normal respiratory effort and clear to auscultation bilaterally AUSCULTATION: clear to auscultation bilaterally Cardio: COMMON NORMALS: regular rate RATE: regular rate GI: COMMON NORMALS: Soft to palpation and non-tender PALPATION: Yes Soft to palpation Extremity: COMMON NORMALS: full ROM Neuro: SENSORIUM/ORIENTATION: Yes alert MOTOR EXAM: No Abnormal motor strength present and Other motor observations present (no focal motor deficits) Psych: COMMON NORMALS: speech normal SPEECH: Yes normal speech MOOD & AFFECT: Yes depressed mood Course Vital Signs: Vital signs: Vital Signs Temperature 98.5 F 03/07/22 15:59 Pulse Rate 86 03/07/22 15:59 Respiratory Rate 22 H 03/07/22 15:59 Blood Pressure 128/63 03/07/22 15:59 Pulse Oximetry 98 03/07/22 15:59 MDM - General Adult Medical Decision Making [41]yo patient w/ hx of schizoaffective disorder presenting for SI with auditory and visual hallucination. HDS, exam within normal limit Thoughts are linear and organized, but reports AH/VH. Clinically the patient displays no overt toxidrome; they are well appearing, with low suspicion for toxic ingestion given history and exam. Symptoms unlikely 2/2 anemia, hypothyroidism, infection, or ICH. Workup: CBC, CMP, Lipase, salicylate/tylenol, UDS Lab findings: wnl [5:45pm] On reassessment, labs and workup wnl. Patient is hemodynamically stable with no acute medical complaints. Case discussed with psychiatric provider Dr. Jones at [facility] psych inpatient with recommendation for admission Disposition: Psych Discharge Plan Discharge Condition: Stable Prescriptions: No Action propranolol 10 mg tablet 10 mg PO TID 0RF albuterol sulfate [ProAir HFA] 90 mcg/actuation HFA aerosol inhaler 2 puff INHALATION QID PRN (Reason: Wheezing) 0RF Rx Instructions: 2 puffs every 6 hours PRN benztropine [Cogentin] 1 mg Tablet 1 mg PO DAILY Qty: 0 0RF quetiapine 100 mg Tablet 100 mg PO DAILY Qty: 0 0RF Rx Instructions: Take in AM quetiapine 300 mg Tablet 300 mg PO BEDTIME Qty: 0 0RF fluoxetine 20 mg Capsule 40 mg PO DAILY 0RF cyproheptadine 4 mg Tablet 4 mg PO BEDTIME 0RF gabapentin 300 mg Capsule 300 mg PO TID Qty: 0 0RF omeprazole 20 mg Capsule,Delayed Release(Dr/Ec) 20 mg PO DAILY 0RF gemfibrozil 600 mg Tablet 600 mg PO BID Qty: 0 0RF thiamine mononitrate (vit B1) [Vitamin B-1 (mononitrate)] 100 mg Tablet 100 mg PO DAILY 30 Days Qty: 30 1RF Referrals: Jasson Torres MD [Primary Care Provider] - Coding Level of Care Code ED Bologna Maker for Radha Charles
[2022-03-07] MEDS: LORazepam 2 mg Tablet PO (16:49)
[2022-03-07 16:56] LABS: Basophils # 0.1 10^3/uL (0.0-0.1); Basophils % 0.9 %; Eosinophils # 0.4 10^3/uL (0.0-0.8); Eosinophils % 7.2 %; Hematocrit 40.7 % (42.0-52.0); Hemoglobin 14.2 g/dL (11.7-16.6); Lymphocytes # 1.8 10^3/uL (0.8-4.8); Lymphocytes % 31.4 %; Mean Corpuscular HGB Conc 34.9 g/dL (30.0-36.0); Mean Corpuscular Hemoglobin 32.7 pg (28.0-34.0); Mean Corpuscular Volume 93.8 fl (80-94); Mean Platelet Volume 10.6 fL (7.4-10.4); Monocytes # 0.4 10^3/uL (0.2-0.9); Monocytes % 7.2 %; Neutrophils # 3.06 10^3/uL (1.8-7.7); Neutrophils % 53.3 %; Nucleated Red Blood Cells % 0 %; Platelet Count 210 10^3/cmm (130-400); Red Blood Count 4.34 10^6/uL (4.1-5.3); Red Cell Distribution Width 14.5 % (12.1-15.1); White Blood Count 5.7 10^3/uL (4.0-10.0)
[2022-03-07 17:18] LABS: Alanine Aminotransferase 28 U/L (0-41); Albumin Level 4.6 g/dL (3.5-5.2); Alkaline Phosphatase 105 IU/L (40-130); Anion Gap 15.9 (5-19); Aspartate Amino Transferase 27 U/L (0-40); Blood Urea Nitrogen 14 mg/dL (6-20); Calcium 9.2 mg/dL (8.5-10.5); Carbon Dioxide 24 mmol/L (22-29); Chloride 103 mmol/L (98-107); Globulin 2.1 g/dL (1.3-4.6); Glomerular Filtration Rate 102.3 mL/min (90-130); Glucose 168 mg/dL (65-115); Lipase 40 U/L (13-60); Osmolality Calculated 292 mOsm/kg (285-295); Potassium 3.9 mmol/L (3.5-5.1); Sodium 139 mmol/L (136-145); Total Bilirubin 0.4 mg/dL (0.15-1.2); Total Protein 6.7 g/dL (6.6-8.7)
[2022-03-07 17:23] LABS: Amphetamines Screen Urine Positive (Negative); Barbiturates Screen Urine Negative (Negative); Benzodiazepines Screen Urine Negative (Negative); Cocaine Screen Urine Negative (Negative); Opiate Screen Urine Negative (Negative); PCP Screen Urine Negative (Negative); THC Screen Urine Positive (Negative)
[2022-03-07 17:24] LABS: Acetaminophen < 5.0 ug/mL (10-30); Salicylate < 0.3 mg/dL (3-10)
[2022-03-07 20:26] VITALS: BP 104/56; PULSE 93; RESP 17; TEMP 36.7; O2SAT 99
--- NOTE | 2022-03-07 20:31 | PC.NURSE ---
PER ER [41]yo patient w/ hx of schizoaffective disorder presenting for worsening depression with plan to hang himself. On arrival, the patient is AAOx3 and cooperative with my evaluation. No focal complaints of chest pain, shortness of breath, palpitations, N/V, focal GI/ complaints. Currently denies HI. Reports auditory and visual hallucination Onset: acute on chronic NPU- PT IS COOPERATIVE AT THIS TIME. PT FALLING ASLEEP DURING ADMISSION BUT DID GIVE ANSWERS TO MOST QUESTIONS. FIDGETY WHILE LYING IN BED. ENDORSES CURRENT AVH AND PASSIVE SI. DENIES INTENT TO ACT BUT HAS INTRUSIVE THOUGHTS. REPORTS METH AND MARIJUANNA USE YESTERDAY. DENIES BEING ON ANY MEDS OR GOING TO OUTPATIENT CARE.
[2022-03-08 06:00] VITALS: BP 128/83; PULSE 71; RESP 18; TEMP 36.8; O2SAT 99
[2022-03-08] MEDS: OLANZapine 5 mg ODT PO ×2 (06:37→19:57)
--- NOTE | 2022-03-08 08:02 | W.PM.NPUH&PS ---
Providers/Chief Complaint Admitting Physician: Josr Jones MD Primary Care Provider: Jasson Torres MD Chief Complaint: Anxiety, Says he is dehydrated HPI NPU History of Present Illness Marty Rosas is a 51 year old male who presented to the emergency department with the following report: Chief complaint: Psychiatric Symptoms Stated complaint: Anxiety, Says he is dehydrated Time Seen by Provider: 03/07/22 16:10 History of Present Illness: HPI: [41]yo patient w/ hx of schizoaffective disorder presenting for worsening depression with plan to hang himself. On arrival, the patient is AAOx3 and cooperative with my evaluation. No focal complaints of chest pain, shortness of breath, palpitations, N/V, focal GI/ complaints. Currently denies HI. Reports auditory and visual hallucination Onset: acute on chronic Duration: ongoing Location: home Severity: severe Associated symptoms: Deny chest pain, dyspnea, nausea, rash, palpitations or vomiting He was admitted to the neuropsychiatric unit for definitive treatment of those issues. 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 He presented to the emergency department reporting similar complaints and presents today denying any major changes other than he has supposedly moved into a mostly abandoned park but still with the same addition that is often complicated with psychosis because of the methamphetamine use. He is a limited historian due to his level of lethargy and clear continued need for a place to stay at times during challenging situations. He reports however this time that he is fully open to addiction and mental health treatment and then will have any problems with them. He reports that he did make some strides in getting away from the situation where he was squatting but now finds himself with limited supports, significant isolation and continued active addiction. We discussed the risk benefits and alternatives of continuing his home medications and considering changes as indicated and he understood agreed proceed as documented in this note. An excerpt from his discharge summary from his 01/09/2022 [facility] inpatient psychiatric discharge summary is included below for context. Per his 01/09/2022 [facility] inpatient psychiatric discharge summary: Discharge Diagnosis (1) Alcohol use disorder: Status: Acute (2) Suicidal ideation: Status: Acute (3) Methamphetamine abuse: Status: Acute (4) Acute psychosis: Status: Resolved (5) Cannabis dependence, daily use: Status: Chronic Permanent problem details: Patient states he uses daily for pain management-reports having a medical marijuana card (6) Schizoaffective disorder, bipolar type: Status: Chronic (7) Nicotine dependence, cigarettes, uncomplicated: Status: Chronic Reason for Visit Reason for Visit: PSYCH EVAL Brief History: History of Present Illness Marty Rosas is a 51 year old male who presented to the emergency department with the following report: HPI: [51]yo patient w/ hx of depression BIBP for acute suicidal ideation, depression, and alcohol use. On arrival, the patient is AAOx3 and cooperative with my evaluation. No focal complaints of chest pain, shortness of breath, palpitations, N/V, focal GI/ complaints. Currnetly denies SI. No complaints of hallucinations. Onset: Unknown Duration: ongoing Location: home Severity: severe Associated symptoms: Deny chest pain, dyspnea, nausea, rash, palpitations or vomiting He was admitted to the neuropsychiatric unit for definitive treatment of those issues. He presents today essentially with some reports of paranoia and persecutory thinking that he did our last encounter which was 12/11/2021. Concerns existed for possible need for continued psychiatric care. However he was allowed to leave but then return 4 days later and was hospitalized for 4 days. Now he presents 16 days later with the same report. The people are messing with his things that he tried to move out of his living circumstance and it was not for people messing with his things and interfering with his life there would be no problem. Once again he was brought in by authorities this time he reports that a close friend had betrayed him and was sending messages to his ex-girlfriend and that we need to let him know because people are planning on stealing his belongings or as long as he can get wet etc. When he presented at the beginning of this month he was advised that if I discharged him and he returned with similar reports then the concerns and assumptions that this is psychotic behavior would need to be explored further and a quick discharge would not be likely. He denies any issues. He presented last time positive for cannabis, amphetamines, and benzodiazepines in fact the last 2 visits in December today he presents having had a blood alcohol of 189 and still positive for cannabis. We had a long discussion about our thought that his psychosis is related to his methamphetamine use which he denies. And we explained that even with a negative screen for now his psychosis could be related to the methamphetamine still as well as possible withdrawal issues related to benzodiazepines. We discussed our concerns and agreement with a 96-hour hold which he felt was unacceptable and mostly argued throughout the interview not answering questions only arguing for why he should not be in the hospital. Per his 12/16/2021 [facility] inpatient psychiatric evaluation: History of Present Illness Marty Rosas is a 51-year-old male admitted to the emergency department with the following report: HPI: [51]yo patient w/ hx of schizophrenia BIBA not taking medication presenting to the ED for On arrival, the patient is AAOx3 and cooperative with my evaluation. Has disorganized thoughts. Patient complains of sensations of parasitosis all over his body and mouth ass well as right-sided abdominal pain. No focal complaints of chest pain, shortness of breath, palpitations, N/V, focal GI/ complaints. Currently denies SI/HI. His ex- filled out an affidavit which states Eduardo is diagnosed schizoaffective disorder. He has had a couple of dramatic experiences since August. Resulting in him starting to drink and do methamphetamine. He also quit his meds. He is having delusions. He believes that he has parasites or worms under his skin and all through his body. He has burning himself trying to burn the worms. He also believes he is being targeted of a conspiracy against him. He sees drones everywhere. He has torn his camper apart thinking it is infested. He thinks that people are moving his camper and that there is a magnet that is bending the frame. He has made verbal threats against people where his camper resides. He sees people coming through the ferris. He is a danger to himself and others. He is in stress unit now just do not want him to sign himself out. He was admitted to the neuropsychiatry for definitive treatment of these issues. He says he is stressed out because everything in his life is messed up. He is trying to move but cannot. He says there are 20 people who are trying to obstruct what ever he does. He says even when he leaves his trailer for a few minutes people come in and take things and move things around. He went to the store to buy some cigarettes and some beer and when he came back his trailer had parasites which are now all over him. He says that he can see that crawling on his skin. He has many cuts and places on his skin. Which he has caused by trying to get rid of these parasites. He says that he put them in a sandwich bag and he tried to show them to people but they thought they were breadcrumbs. He says that he is going to put things on the skin people who have not done this to him that water and soap on takeoff. He says that he is going to beat them up and make them sorry that they have done these things to him. He says that he has not been able to sleep because he is trying to sleep people are walking across his growth or knocking on the [place] and making noise in various ways. He says that while he is here they are free to do what ever they want to do stuff and they will ruin everything that he has. He said that the primary suspects are the owners of the land where he is living and his ex- who lives right across the street. He said that he needed to go home. When told that it was not safe to let him go he said that he was going to beat someone up here. His drug screen was positive for methamphetamine, marijuana and benzodiazepines. He was just here a few days ago with the following admission note. 51-year-old male with a long history of psychiatric illness presents through the front door. In the waiting room, he is restless, up walking around. He shouts. When brought back, he complains about bugs crawling out of his body. He states the bugs are reproducing inside of them and hatching. He shows us a bag of bread crumbs and tells us these are what is growing inside him. He does also state that he has been off of his psychiatric medication, and would like to go back on his medication. He has been self-medicating with drugs, likely amphetamine. He denies any suicidality or homicidality, but does wish treatment. He also believes his girlfriend is out to get him . MD complaint: altered mental status and other Onset (ago): day(s) Duration: constant and getting worse History of same: Yes Relieving factors: none Exacerbating factors: none Context: recent alcohol abuse and recent drug abuse Associated psychiatric symptoms: racing thoughts and delusions Associated symptoms: Reports visual hallucinations and delusions; Deny auditory hallucinations, homicidal ideation or suicidal ideation He was admitted to the neuropsychiatric unit for definitive treatment of those issues. The patient presents today reporting that he doesn?t know how many times he has been admitted to a psychiatric sahni nor his history of outpatient services though he did identify that he saw someone at [facility] and according to our records, the last visit that he had over at [facility] was September 08, 2021 and the first records in the system is an inpatient stay back in 2006. It appears that he has had 15 inpatient hospitalizations, the last one being in 2018 at this hospital at least. He is not currently taking any medications, or at the very least would not discuss medications and suggested that he is not taking them with the best accuracy but says that he does take them a lot of the time, including Seroquel, Neurotin, and Prozac. He is a fairly poor historian and focused on his likely paranoid and delusional thinking for most of the interview. He could be pulled away for some factual information as he did report smoking a pack of cigarettes every 2 to 3 days, having alcohol rarely, having his medical marijuana card, and denying other illicit drug use though he did seem to be having symptoms that would be consistent with methamphetamine use. The ED had not obtained a UDS and so we did obtain a UDS which was positive for amphetamines, marijuana and benzodiazepines. He reports he has never been to a rehab facility, never had a DUI but may have had some marijuana possessions charges. He spent most of the time talking about things like his phone being hacked and going down rabbit holes like that, but the echo of his story was that his girlfriend of 8 years, out of the blue, said that she was done with their relationship; he has a camper and she stated it would be fine if he stayed in the camper on the property but he had to give his keys to the house back which started a major confrontation with him being upset about losing the relationship and going from an equal partner in the house to having to make sure she is awake to come in and use the bathroom. So he reports he moved all of his stuff across the street, back in September of 2021. He reports that the next week his father so he had to go to [place] which he reports was not a great trip as his family has all kinds of tough entanglements and conflicts with one another. He was mostly focused on feeling like, since he has moved into his camper, feeling like people have been disconnecting things, vandalizing, burglarizing, and now the owner/photographer of the property that he moved to across the street says that he needs to leave so he is trying to get his stuff together to do that. He believes that someone also has infected his area around his home, his home as well as the place inside it with some parasite which has caused him to have all these bites which resemble pick harris from methamphetamine addiction but he believes fully to be parasites and refers to as such. He reports he has had one suicide in the past but denies self-injurious behaviors, He doesn?t believe anything is wrong with him and denies any need for medication changes. Ultimately, he wanted to discharge and we discussed the fact that it was our assessment that he needed to stabilize and needed to stay. He, however, was very clear that he had no intention to hurt himself or anyone else and that it was supposed to rain so he needed to go collect his stuff so he doesn?t lose everything. We discussed the risks, benefits and alternatives of us getting the UDS which had not been back at this time, and that after getting the UDS we would make some assessment about whether it was safe to allow him to leave against medical advice and he understood and agreed to proceed as is documented in this note. Hospital Course Hospital Course Molina slowly acclimated to the individual, group and milieu therapies provided. This has been his third hospitalization in the month of December with both hospitalizations positive for methamphetamine this 1 he was not positive for methamphetamine but his alcohol level was 189. He was on a 96-hour hold and he spent most of the time denying addiction and blaming others for his circumstance. We spent a lot of time discussing the impact of his addiction on his presentation. He was continued on his home medications which likely were not being taken appropriately prior to admission and he had marked improvement. He was able to contract for safety outside of the hospital prior to discharge. During the hospitalization, patient had routine laboratory studies which were within normal limits except for few outliers. Additionally there was a general medical evaluation which was also within normal limits and revealed no new acute processes. Discharge Summary: At the time of discharge, he denied psychosis or lethality. Mood and anxiety were well managed. Patient endorsed a plan to avoid all drugs of abuse and follow-up with the aftercare recommendations of the treatment team. Patient was evaluated and deemed to be absent credible lethality, and had achieved the maximum benefit from an inpatient hospitalization, so was discharged. Meds NPU Home Medications Medication Instructions Recorded Confirmed Last Taken Type No Known Home Medications 03/08/22 03/08/22 Unknown History Allergies Allergy/AdvReac Type Severity Reaction Status Date / Time haloperidol [From Haldol] Allergy ADV-Weaknes Verified 01/27/22 16:52 s chlorpromazine AdvReac Intermediate ADR-Seizure Verified 01/27/22 16:52 [From Thorazine] hydroxyzine [From Vistaril] AdvReac Intermediate ADR-Anxiety Verified 01/27/22 16:52 PFSH NPU PFSH: Medical History Cannabis dependence, daily use Patient states he uses daily for pain management-reports having a medical marijuana card Cervical disc disorder at C4-C5 level with radiculopathy Chronic low back pain with bilateral sciatica COPD (chronic obstructive pulmonary disease) Encounter to establish care Esophageal stricture Hyperlipidemia Hypertension Nicotine dependence, cigarettes, uncomplicated Prediabetes Psychiatric care Radiculopathy of cervical region Radiculopathy of lumbosacral region Right upper quadrant abdominal pain Schizoaffective disorder, bipolar type Surgical History H/O esophagogastroduodenoscopy (11/24/21) Disimpaction of food bolus History of ankle surgery left History of arthroscopic knee surgery Social History Alcohol intake: former Adopted: Yes History of recent travel: No Mental Status Exam MSE Comments: This is a well-nourished, well-developed white male in green hospital scrubs with limited grooming and eye contact.?? No abnormal movements except for psychomotor retardation.? Limited cooperation with exam in mild to moderate distress. Speech was decreased rate and and volume. Patient mood described as depressed and worn out, affect odd and subdued Thought process, organized at times and disorganized at other times. Thought content: patient denied suicidal or homicidal ideations, no delusions reported or noted, and he endorsed auditory but denied visual hallucinations. Attention and concentration are intact and memory is intermittently reliable but none were formally tested. He is alert and oriented three times. Insight and judgment are limited. Impulse control is limited. Vitals/I&O/Wt Last Vital Signs Temp 98.3 F 03/08/22 06:00 Pulse 71 03/08/22 06:00 Resp 18 03/08/22 06:00 BP 128/83 03/08/22 06:00 Pulse Ox 99 03/08/22 06:00 Weight last 48 hrs Weight 72.575 kg Data NPU : 03/07/22 16:45 03/07/22 16:45 A&P Assessment and plan (1) Depression with suicidal ideation: Status: Acute (2) Auditory hallucination: Status: Acute (3) Hallucinations, visual: Status: Acute (4) Alcohol use disorder: Status: Acute (5) Nicotine dependence, cigarettes, uncomplicated: Status: Chronic (6) Cannabis dependence, daily use: Status: Chronic (7) Schizoaffective disorder, bipolar type: Status: Chronic (8) Methamphetamine abuse: Status: Acute Plan This is a 51 year old white male with a history of schizoaffective disorder and cannabis dependence as well as recent methamphetamine use who presents clearly having some psychosis here for the third time in less than 30 days once again lobbying for discharge. 1. Continue current medications and c offered to initiate a mood stabilizer or antipsychotic. 2. Encourage individual, group and milieu therapy 3. Continue q-15 minute check for safety 4. Recommend sober living treatment at the highest level of care to which the patient is willing to commit. Involuntary Hold Information 96 Hour Hold: 96 Hour Involuntary Admission: No Attestations NPU Medical Necessity Statement*: Inpatient hospitalization is medically necessary and the clinically appropriate intervention at this time. We will monitor medication to make changes as indicated. Patient will be in the hospital for over two midnights. Likely length of stay 3 to 5 days. Coding Level of Care Code Acute Banking Representative for Radha Charles Diagnoses Depression with suicidal ideation F32.A; R45.851 Auditory hallucination R44.0 Hallucinations, visual R44.1 Alcohol use disorder Nicotine dependence, cigarettes, uncomplicated F17.210 Cannabis dependence, daily use F12.20 Schizoaffective disorder, bipolar type F25.0 Methamphetamine abuse F15.10
[2022-03-08 14:00] VITALS: RESP 15
[2022-03-08] MEDS: trazodone 50 mg Tablet PO (19:57)
[2022-03-08 21:09] VITALS: BP 113/66; PULSE 93; RESP 17; TEMP 36.5; O2SAT 100
[2022-03-09 06:00] VITALS: BP 130/78; PULSE 67; RESP 18; TEMP 36.7; O2SAT 99
[2022-03-09] MEDS: OLANZapine 5 mg ODT PO (10:22)
[2022-03-09] MEDS: acetaminophen 325 mg Tablet 650 MG PO (10:22)
--- NOTE | 2022-03-09 10:23 | PC.NURSE ---
PRN ZYPREXA ZYDIS 5 MG GIVEN PO PER PT C/O ANXIETY/AGITATION.
--- NOTE | 2022-03-09 13:24 | W.PM.NPUPNS ---
Subjective NPU Subjective: Patient presented today reporting that he continues to feel tired and depressed. He continued to be isolative and staying in bed. He reported that he is open this time to go to treatment and work on his recovery. Mental Status Exam MSE Comments: This is a well-nourished, well-developed white male in [facility] scrubs with limited grooming and eye contact.?? No abnormal movements except for psychomotor retardation.? Limited cooperation with exam in mild to moderate distress. Speech was decreased rate and and volume. Patient mood described as depressed, affect odd and subdued Thought process, organized at times and disorganized at other times. Thought content: patient denied suicidal or homicidal ideations, no delusions reported or noted, and he endorsed auditory but denied visual hallucinations. Attention and concentration are intact and memory is intermittently reliable but none were formally tested. He is alert and oriented three times. Insight and judgment are limited. Impulse control is limited. Vitals/I&O/Wt Last Vital Signs Temp 98.0 F 03/09/22 06:00 Pulse 67 03/09/22 06:00 Resp 18 03/09/22 06:00 BP 130/78 03/09/22 06:00 Pulse Ox 99 03/09/22 06:00 Data NPU : 03/07/22 16:45 03/07/22 16:45 A&P Assessment and plan (1) Depression with suicidal ideation: Status: Acute (2) Auditory hallucination: Status: Acute (3) Hallucinations, visual: Status: Acute (4) Alcohol use disorder: Status: Acute (5) Methamphetamine abuse: Status: Acute (6) Schizoaffective disorder, bipolar type: Status: Chronic (7) Cannabis dependence, daily use: Status: Chronic (8) Nicotine dependence, cigarettes, uncomplicated: Status: Chronic Plan This is a 51 year old white male with a history of schizoaffective disorder and cannabis dependence as well as recent methamphetamine use who presents clearly having some psychosis here for the third time in less than 30 days once again lobbying for discharge. 1.? Continue current medications and continue to offer to initiate a mood stabilizer or antipsychotic. 2.? Encourage individual, group and milieu therapy 3.? Continue q-15 minute check for safety 4.? Recommend sober living treatment at the highest level of care to which the patient is willing to commit. Involuntary Hold Information 96 Hour Hold: 96 Hour Involuntary Admission: No Attestations NPU Medical Necessity Statement*: Inpatient hospitalization is medically necessary and the clinically appropriate intervention at this time. We will monitor medication to make changes as indicated. Likely length of stay 2-4 days. Coding Level of Care Code Acute Legal Administrative Assistant for g Fwd Diagnoses Depression with suicidal ideation F32.A; R45.851 Auditory hallucination R44.0 Hallucinations, visual R44.1 Alcohol use disorder Methamphetamine abuse F15.10 Schizoaffective disorder, bipolar type F25.0 Cannabis dependence, daily use F12.20 Nicotine dependence, cigarettes, uncomplicated F17.210
[2022-03-09 14:00] VITALS: BP 140/80; PULSE 106; RESP 18; TEMP 36.6; O2SAT 98
[2022-03-09 19:58] VITALS: BP 129/83; PULSE 77; RESP 20; TEMP 36.3; O2SAT 98
[2022-03-10 06:00] VITALS: BP 130/80; PULSE 72; RESP 16; TEMP 36.8; O2SAT 100
[2022-03-10] MEDS: OLANZapine 5 mg ODT PO ×3 (06:50→15:55)
--- NOTE | 2022-03-10 08:30 | PC.NURSE ---
PT REPORTS PASSING SUICIDAL THOUGHTS THAT ARE CONSTANT WITH NO PLAN. REPORTS HEARING VOICES AND SEEING THINGS THAT ARE NOT THERE. REPORTS, THE VOICES ALWAYS TELL ME TO HURT MYSELF BUT I DO NOT HAVE ANY PLANS HERE. VISIBLY ANXIOUS. MED NURSE TO GIVE ZYDIS ORDERED FOR ANXIETY.
[2022-03-10 14:00] VITALS: BP 101/67; PULSE 118; RESP 16; TEMP 36.6; O2SAT 100
--- NOTE | 2022-03-10 17:13 | W.PM.NPUPNS ---
Subjective NPU Subjective: He was seen at dinnertime. He had just been very upset about something having to do with his dinner but he did not want to talk about. He said that nobody cares about him and he is going to lose everything that he has and that nobody cares. He he feels like people are actively trying to keep him down and not letting him accomplish anything. He hears auditory hallucinations would like to take something for that. He said that he was doing better when he was taking his medication last year. He was on Seroquel 100 mg in the morning and 300 mg at bedtime. Prozac 40 mg in the morning cyproheptadine 4 mg at bedtime Neurontin 300 mg 3 times a day Inderal 300 mg 3 times a day and Cogentin 100 mg twice a day. He agreed to restart the Seroquel at 200 mg at bedtime and Prozac 20 mg at this time. Mental Status Exam MSE Comments: This is a well-nourished, well-developed white male in [facility] scrubs with limited grooming and eye contact.?? No abnormal movements. Psychomotor activity is normal. He was fairly cooperative with the evaluation. Speech was decreased rate and and volume. Patient mood described as depressed, affect odd and subdued Thought process, organized at times and disorganized at other times. Thought content: patient denied suicidal or homicidal ideations, no delusions reported or noted, and he endorsed auditory but denied visual hallucinations. Attention and concentration are intact and memory is intermittently reliable but none were formally tested. He is alert and oriented three times. Insight and judgment are limited. Impulse control is limited. Cognition: Patient Appearance: Appears Older than Age and Disheveled/Poor Hygiene Level of Consciousness: Awake, Alert, Appropriate and Follows Commands Patient Cognition Impaired: No Ability to Follow Directions: Good Patient Orientation (long list): Person, Place, Name and Age Comprehension Ability: Understands Concepts Hallucination Type: None Delusion Description: Not Present Thought Process: Circumstantial, Disorganized, Flight of Ideas and Indecisive Affect: Affect Description: Anxious, Depressed, Flat and Guarded Depressive Symptoms: Unhappiness Behavior: Patient Behavior: Cooperative and Withdrawn Speech Pattern: Clear, Delayed and Difficulty Finding Words Vitals/I&O/Wt Last Vital Signs Temp 97.9 F 03/10/22 14:00 Pulse 118 H 03/10/22 14:00 Resp 16 03/10/22 14:00 BP 101/67 03/10/22 14:00 Pulse Ox 100 03/10/22 14:00 Data NPU : 03/07/22 16:45 03/07/22 16:45 A&P Assessment and plan (1) Depression with suicidal ideation: Status: Acute (2) Auditory hallucination: Status: Acute (3) Hallucinations, visual: Status: Acute (4) Alcohol use disorder: Status: Acute (5) Methamphetamine abuse: Status: Acute (6) Schizoaffective disorder, bipolar type: Status: Chronic (7) Cannabis dependence, daily use: Status: Chronic (8) Nicotine dependence, cigarettes, uncomplicated: Status: Chronic Plan This is a 51 year old white male with a history of schizoaffective disorder and cannabis dependence as well as recent methamphetamine use who presents clearly having some psychosis here for the third time in less than 30 days once again lobbying for discharge. 1.? Restart Seroquel 200 mg and gradually increase if needed. Prozac 20 mg to increase to 40 mg as tolerated. 2.? Encourage individual, group and milieu therapy 3.? Continue q-15 minute check for safety 4.? Recommend sober living treatment at the highest level of care to which the patient is willing to commit. Involuntary Hold Information 96 Hour Hold: 96 Hour Involuntary Admission: No Attestations NPU Medical Necessity Statement*: Inpatient hospitalization is medically necessary and the clinically appropriate intervention at this time. We will initiate medications and make changes as indicated. Coding Level of Care Code Acute Customer Support Engineer for Radha Charles Diagnoses Depression with suicidal ideation F32.A; R45.851 Auditory hallucination R44.0 Hallucinations, visual R44.1 Alcohol use disorder Methamphetamine abuse F15.10 Schizoaffective disorder, bipolar type F25.0 Cannabis dependence, daily use F12.20 Nicotine dependence, cigarettes, uncomplicated F17.210
[2022-03-10] MEDS: quetiapine 100 mg Tablet 200 MG PO (20:51)
[2022-03-11] MEDS: fluoxetine 20 mg Capsule PO (09:51)
[2022-03-11] MEDS: OLANZapine 5 mg ODT PO (10:04)
--- NOTE | 2022-03-11 10:22 | W.PM.NPUPNS ---
Subjective NPU Subjective: He is very upset because he has been trying to get in touch with a person and he called in the middle of the night and they did not wake him up. He says he needs to go home and get his things secured. He is afraid someone is stealing all of his things. He does not even know if they are still safe. He says he is also worried that he might be arrested. He wishes that the police would just go ahead and arrest him if that is what they are going to do. I asked him what he would be arrested for and he said everyone knows I told him that I did not know and he would not elaborate. He said that he wanted to leave here and just walk away and be done with everything. He did not specifically sound like he was going to kill himself and would not answer when directly asked. He again said that everything was great when he took the same medications for a long time. I got him to agree and stay and continue to work on getting him back on those medications. He agreed to take Seroquel 50 mg this morning. He had been on 100 in the morning and 300 at bedtime previously. He does have nightmares and agreed to restart the cyproheptadine 4 mg at bedtime. He took Prozac 20 mg for the first time today will increase to 40 mg tomorrow. Mental Status Exam MSE Comments: This is a well-nourished, well-developed white male in [facility] scrubs with limited grooming and eye contact.?? No abnormal movements. Psychomotor activity is mildly increased. He was fairly cooperative with the evaluation. Speech was increased rate and and volume. Patient mood described as depressed, affect dysphoric. Thought process, logical and organized. Thought content: patient denied suicidal or homicidal ideations, no delusions reported or noted, and he endorsed auditory but denied visual hallucinations. Attention and concentration are intact and memory is intermittently reliable but none were formally tested. He is alert and oriented three times. Insight and judgment are limited. Impulse control is limited. Cognition: Patient Appearance: Appears Older than Age and Disheveled/Poor Hygiene Level of Consciousness: Awake, Alert, Appropriate and Follows Commands Patient Cognition Impaired: No Ability to Follow Directions: Good Patient Orientation (long list): Person, Place, Name, Age, Month and Year Comprehension Ability: Understands Concepts Hallucination Type: None Delusion Description: Not Present, Paranoid Ideation and Persecutory Thought Process: Circumstantial, Flight of Ideas and Indecisive Affect: Affect Description: Anxious, Depressed and Guarded Depressive Symptoms: Unhappiness Behavior: Patient Behavior: Irritable Speech Pattern: Clear, Pressured and Rambling Vitals/I&O/Wt Last Vital Signs Temp 97.9 F 03/10/22 14:00 Pulse 118 H 03/10/22 14:00 Resp 16 03/10/22 14:00 BP 101/67 03/10/22 14:00 Pulse Ox 100 03/10/22 14:00 Data NPU : 03/07/22 16:45 03/07/22 16:45 A&P Assessment and plan (1) Depression with suicidal ideation: Status: Acute (2) Auditory hallucination: Status: Acute (3) Hallucinations, visual: Status: Acute (4) Alcohol use disorder: Status: Acute (5) Methamphetamine abuse: Status: Acute (6) Schizoaffective disorder, bipolar type: Status: Chronic (7) Cannabis dependence, daily use: Status: Chronic (8) Nicotine dependence, cigarettes, uncomplicated: Status: Chronic Plan This is a 51 year old white male with a history of schizoaffective disorder and cannabis dependence as well as recent methamphetamine use who presents clearly having some psychosis here for the third time in less than 30 days once again lobbying for discharge. 1.? Restart Seroquel 200 mg and gradually increase if needed. Prozac 20 mg to increase to 40 mg as tolerated. Add Seroquel 50 mg every morning and cyproheptadine 4 mg at bedtime. Cogentin 1 mg twice daily. Gabapentin 300 mg 3 times daily and propranolol 10 mg 3 times daily. 2.? Encourage individual, group and milieu therapy 3.? Continue q-15 minute check for safety 4.? Recommend sober living treatment at the highest level of care to which the patient is willing to commit. Involuntary Hold Information 96 Hour Hold: 96 Hour Involuntary Admission: No Attestations NPU Medical Necessity Statement*: Inpatient hospitalization is medically necessary and the clinically appropriate intervention at this time. We will initiate medications and make changes as indicated. Coding Level of Care Code Acute [place] Roofer for Radha Chrales Diagnoses Depression with suicidal ideation F32.A; R45.851 Auditory hallucination R44.0 Hallucinations, visual R44.1 Alcohol use disorder Methamphetamine abuse F15.10 Schizoaffective disorder, bipolar type F25.0 Cannabis dependence, daily use F12.20 Nicotine dependence, cigarettes, uncomplicated F17.210
[2022-03-11] MEDS: quetiapine 25 mg Tablet 50 MG PO (10:55)
[2022-03-11 11:34] VITALS: BP 101/67; PULSE 118; RESP 16; TEMP 36.6; O2SAT 100
--- NOTE | 2022-03-11 11:42 | PC.NURSE ---
Patient at nurses station requesting to leave AMA due to needing to take care of his trailer, go to the bank, make sure nothing has been stolen. This RN discussed extensively with patient concerns of his methamphetamine abuse, weight loss and continued paranoia. Patient denies SI/HI AVH at this time. Physician notified. Patient instructed to return to ED or contact [facility] crisis line. AMA for signed. Patient left ambulatory.
== END 2022-03-11 11:55 | disposition left against medical advice (07) | DRG 885 ==
LOC: ER 16:31 → NP 17:41
PROVIDERS: Admitting Provider Psychiatry & Neurology Psychiatry; Emergency Provider Emergency Medicine; PCP Family Medicine Adult Medicine; Visit Provider Psychiatry & Neurology Psychiatry
DX: F25.0 Schizoaffective disorder, bipolar type (principal); R45.851 Suicidal ideations; F17.210 Nicotine dependence, cigarettes, uncomplicated; F10.10 Alcohol abuse, uncomplicated; F12.20 Cannabis dependence, uncomplicated; F15.10 Other stimulant abuse, uncomplicated; Z53.29 Procedure and treatment not carried out because of patient's decision for other reasons
CPT/HCPCS: 80053; 80306; 80307; 83690; 85025; 97150; 97165; 99285

== ENCOUNTER 2022-05-06 14:05 | Emergency (ER) | payer MEDICAID, SELFPAY ==
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
[2022-05-06 14:42] VITALS: BP 113/71; PULSE 86; RESP 14; TEMP 36.6; O2SAT 97; BMI 21.5
[2022-05-06 14:51] LABS: Basophils % 0.3 %; Eosinophils # 0.1 10^3/uL (0.0-0.8); Hematocrit 45.6 % (42.0-52.0); Hemoglobin 15.3 g/dL (11.7-16.6); Lymphocytes # 1.7 10^3/uL (0.8-4.8); Lymphocytes % 43.1 %; Mean Corpuscular HGB Conc 33.6 g/dL (30.0-36.0); Mean Corpuscular Hemoglobin 32.2 pg (28.0-34.0); Mean Platelet Volume 10.6 fL (7.4-10.4); Monocytes # 0.3 10^3/uL (0.2-0.9); Monocytes % 8.5 %; Neutrophils # 1.83 10^3/uL (1.8-7.7); Neutrophils % 45.8 %; Nucleated Red Blood Cells % 0 %; Platelet Count 185 10^3/cmm (130-400); Red Blood Count 4.75 10^6/uL (4.1-5.3)
[2022-05-06 15:17] LABS: Alanine Aminotransferase 36 U/L (0-41); Albumin Level 4.5 g/dL (3.5-5.2); Alkaline Phosphatase 95 IU/L (40-130); Anion Gap 15.8 (5-19); Aspartate Amino Transferase 38 U/L (0-40); Blood Urea Nitrogen 9 mg/dL (6-20); Calcium 9.2 mg/dL (8.5-10.5); Carbon Dioxide 24 mmol/L (22-29); Chloride 103 mmol/L (98-107); Globulin 2.6 g/dL (1.3-4.6); Glomerular Filtration Rate 102.3 mL/min (90-130); Glucose 115 mg/dL (65-115); Lipase 65 U/L (13-60); Osmolality Calculated 288 mOsm/kg (285-295); Potassium 3.8 mmol/L (3.5-5.1); Sodium 139 mmol/L (136-145); Total Bilirubin 0.3 mg/dL (0.15-1.2); Total Protein 7.1 g/dL (6.6-8.7)
[2022-05-06 15:20] LABS: Acetaminophen < 5.0 ug/mL (10-30); Alcohol Level < 10 mg/dL (0-10); Salicylate < 0.3 mg/dL (3-10)
[2022-05-06] MEDS: ketorolac 30 mg/mL INJ IM (15:53)
[2022-05-06 16:11] LABS: Amphetamines Screen Urine Negative (Negative); Barbiturates Screen Urine Negative (Negative); Benzodiazepines Screen Urine Negative (Negative); Cocaine Screen Urine Negative (Negative); Opiate Screen Urine Negative (Negative); PCP Screen Urine Negative (Negative); THC Screen Urine Positive (Negative)
--- NOTE | 2022-05-06 19:53 | XRR_ITS ---
PROCEDURE INFORMATION: Exam: XR Chest Exam date and time: 05/06/2022 8:10 PM Age: 51 years old Clinical indication: Angina; Additional info: Chest pain TECHNIQUE: Imaging protocol: Radiologic exam of the chest. Views: 1 view. COMPARISON: CR Chest 1 [place] [id number] 05/29/2017 2:28 AM FINDINGS: Lungs: No consolidation. Pleural spaces: Unremarkable. No large pleural effusion however the right CP angle is partially excluded.. No pneumothorax. Heart/Mediastinum: No cardiomegaly. Bones/joints: No acute findings. Multiple old healed rib fractures. XR/XR chest 1V portable [id number] IMPRESSION: No acute findings.
== END 2022-05-06 22:10 | disposition home or self-care (01) ==
PROVIDERS: Emergency Provider Emergency Medicine; PCP Family Medicine Adult Medicine
DX: Z03.89 Encounter for observation for other suspected diseases and conditions ruled out (principal); J44.9 Chronic obstructive pulmonary disease, unspecified; E78.5 Hyperlipidemia, unspecified; I10 Essential (primary) hypertension
CPT/HCPCS: 71045; 80053; 80306; 80307; 83690; 85025; 96372; 99284; J1885

== ENCOUNTER 2022-05-06 22:56 | Emergency (ER) | payer MEDICAID, SELFPAY ==
[2022-05-06 23:03] VITALS: BP 128/81; PULSE 77; RESP 18; TEMP 36.4; O2SAT 99; BMI 21.5
[2022-05-06 23:25] VITALS: O2SAT 98
--- NOTE | 2022-05-06 23:33 | XRR_ITS ---
PROCEDURE INFORMATION: Exam: XR Chest Exam date and time: 05/06/2022 11:51 PM Age: 51 years old Clinical indication: Patient HX: Cough and congestion. TECHNIQUE: Imaging protocol: Radiologic exam of the chest. Views: 1 view. COMPARISON: CR (CHEST, ) 05/06/2022 8:10 PM FINDINGS: Lungs: Unremarkable. No consolidation. Pleural spaces: Unremarkable. No pleural effusion. No pneumothorax. Heart/Mediastinum: Unremarkable. No cardiomegaly. Bones/joints: Unremarkable. XR/XR chest 1V portable [id number] IMPRESSION: No acute radiographic findings in the chest.
--- NOTE | 2022-05-06 23:33 | ED_ITS ---
HPI - COVID General: Chief Complaint: COVID symptoms Stated Complaint: wants checked for covid, coughing , body aches Time Seen by Provider: 05/06/22 23:06 Source: patient Mode of arrival: ambulatory Limitations: no limitations Triage information: No fever, cough or shortness of breath . No known COVID + exposure last 14 days History of Present Illness: 51-year-old male states that over the last few days has been having cough congestion body aches and low-grade fever. He states he is concerned he may have COVID. He is in no distress here he is afebrile denies any worsening proving factors. COVID 19 common symptoms: positive non-productive cough and body aches; negative headache(s), throat pain, nausea, vomiting or diarrhea COVID 19 other sytmptoms: negative chest pain COVID Results: SARS-CoV-2 Antigen (Rapid) Negative (Negative) 05/06/22 23:45 SARS-CoV-2 RNA (RT-PCR) Not detected (NOT DETECTED) 08/30/20 1 5:08 Review of Systems Const: Reports: body aches Eyes: Denies: blurry vision or eye discomfort ENMT: Denies: throat pain or dental pain Card: Denies: chest pain Resp: Reports: non-productive cough GI: Denies: abdominal pain, nausea, vomiting or diarrhea : Denies: dysuria Musc: Denies: neck pain or back pain Skin/Breast: Denies: rash Neuro: Denies: headache(s) Psych: Denies: depression Al/Lymph: Denies: easy bruising All/Imm: Denies: urticaria PFSH ED PFSH: Medical History Cannabis dependence, daily use Patient states he uses daily for pain management-reports having a medical marijuana card Cervical disc disorder at C4-C5 level with radiculopathy Chronic low back pain with bilateral sciatica COPD (chronic obstructive pulmonary disease) Encounter to establish care Esophageal stricture Hyperlipidemia Hypertension Nicotine dependence, cigarettes, uncomplicated Prediabetes Psychiatric care Radiculopathy of cervical region Radiculopathy of lumbosacral region Right upper quadrant abdominal pain Schizoaffective disorder, bipolar type Surgical History H/O esophagogastroduodenoscopy (11/24/21) Disimpaction of food bolus History of ankle surgery left History of arthroscopic knee surgery Social History Alcohol intake: former Adopted: Yes History of recent travel: No Physical Exam Const: COMMON NORMALS: no acute distress, patient oriented x3 and healthy appearing HENMT: COMMON NORMALS: normocephalic and atraumatic HEAD & SCALP: normocephalic and atraumatic Eye: COMMON NORMALS: Equal, round and reactive pupils present and EOMs intact bilaterally PUPIL: Yes Equal, round and reactive pupils present Neck/C-Spine: COMMON NORMALS: full ROM and supple Chest: COMMONS NORMALS: normal inspection of the chest and normal palpation of entire chest wall Resp: COMMON NORMALS: normal respiratory effort, No retractions, No use of accessory muscles and clear to auscultation bilaterally AUSCULTATION: clear to auscultation bilaterally Cardio: COMMON NORMALS: regular rate, regular rhythm and No murmurs present (Cardio) RATE: regular rate RHYTHM: regular rhythm GI: COMMON NORMALS: Normal to inspection, nondistended, normoactive bowel sounds present, Soft to palpation, non-tender and no masses PALPATION: Yes Soft to palpation Extremity: COMMON NORMALS: normal to inspection and full ROM Neuro: COMMON NORMALS: patient oriented x3, moves all extremities and no focal motor deficits Psych: COMMON NORMALS: mental status grossly normal, Normal thought process present and cooperative THOUGHT PROCESS: Normal thought process present Skin: COMMON NORMALS: no rashes or lesions noted and no wounds GENERAL SKIN EXAM: no rashes or lesions noted Course Vital Signs: Vital signs: Vital Signs Temperature 97.6 F 05/06/22 23:03 Pulse Rate 77 05/06/22 23:03 Respiratory Rate 18 05/06/22 23:03 Blood Pressure 128/81 05/06/22 23:03 Pulse Oximetry 98 05/06/22 23:25 Oxygen Delivery Me thod 05/06/22 23:25 MDM - COVID Medical Decision Making Patient presents here with upper respiratory infection COVID is negative x-ray shows no pneumonia he also has some leg pain in his knee no signs of DVT his x- ray is normal he stable for discharge is to follow-up PCP and return if worsening. Lab Data Radiology Impressions Chest X-Ray 05/06/22 23:33 IMPRESSION: No acute radiographic findings in the chest. Laboratory Results SARS-CoV-2 Ag (Rapid) Negative (Negative) 05/06/22 23:45 SARS-CoV-2 Antigen (Rapid) Negative (Negative) 05/06/22 23:45 SARS-CoV-2 RNA (RT-PCR) Not detected (NOT DETECTED) 08/30/20 1 5:08 Discharge Plan Discharge Patient Disposition: Home Clinical Impression: Upper respiratory infection Condition: Stable Prescriptions: No Action acetaminophen 500 mg tablet 500 mg PO Q6H PRN (Reason: pain) 5 Days Qty: 20 0RF Discharge Orders: Discharge ED (Routine); Ordered 05/07/22 Ordered By: Na Mcpherson Referrals: Jasson Torres MD [Primary Care Provider] - 1-3 days Discharge Diet: Advance as tolerated Discharge Activity: Resume usual activity Patient Instructions: Upper Respiratory Infection (ED) Coding Level of Care Code ED Statistical Programmer Analyst for Chg Fwd Exam Comprehensive
[2022-05-06] MEDS: ketorolac 30 mg/mL INJ IM (23:46)
[2022-05-07 00:19] LABS: SARS Covid-2 Antigen Negative (Negative)
--- NOTE | 2022-05-07 00:43 | XRR_ITS ---
PROCEDURE INFORMATION: Exam: XR Right Knee Exam date and time: 05/07/2022 12:56 AM Age: 51 years old Clinical indication: Right; Patient HX: C/O RT knee pain. ; Additional info: Injury TECHNIQUE: Imaging protocol: Radiologic exam of the Right knee. Views: 3 views. COMPARISON: No relevant prior studies available. FINDINGS: Bones/joints: Chronic appearing subtle impression along the medial tibial plateau. There are tricompartmental right knee joint osteoarthritis with decreased right knee joint space. There is marginal spurring. There are degenerative changes of the patellofemoral joint with decreased joint space. There also structure that but otherwise grossly intact. No evidence of acute fractures. Soft tissues: Mild soft tissue swelling around the medial aspect of the right knee joint. No focal soft tissue swelling is identified. Other findings: No large effusion is identified.
--- NOTE | 2022-05-07 00:58 | XRR_ITS ---
PROCEDURE INFORMATION: Exam: XR Right Knee Exam date and time: 05/07/2022 12:56 AM Age: 51 years old Clinical indication: Right; Patient HX: Knee pain; Additional info: Injury TECHNIQUE: Imaging protocol: Radiologic exam of the Right knee. Views: 3 views. COMPARISON: No relevant prior studies available. FINDINGS: Bones/joints: No fracture or dislocation. There is mild degenerative changes of the right knee, manifested by joint space narrowing and periarticular osteophytes, involving mainly the medial compartment. Soft tissues: Swelling of the soft tissues in the prepatellar region is present. XR/XR knee RT 3V* [id number] IMPRESSION: No acute injury.
== END 2022-05-07 01:34 | disposition home or self-care (01) ==
PROVIDERS: Emergency Provider Emergency Medicine; PCP Family Medicine Adult Medicine
DX: J06.9 Acute upper respiratory infection, unspecified (principal); Z20.822 Contact with and (suspected) exposure to COVID-19; J44.9 Chronic obstructive pulmonary disease, unspecified; E78.5 Hyperlipidemia, unspecified; I10 Essential (primary) hypertension
CPT/HCPCS: 71045; 73562; 87426; 99284; J1885

== ENCOUNTER 2022-05-15 15:42 | Inpatient (IN) | payer MEDICAID, SELFPAY ==
[2022-05-15 15:45] VITALS: BP 122/81; PULSE 91; RESP 19; TEMP 36.7; O2SAT 97; BMI 25.1
--- NOTE | 2022-05-15 16:00 | ED_ITS ---
HPI - General Adult General: Chief complaint: Psychiatric Symptoms Stated complaint: SI Time Seen by Provider: 05/15/22 15:55 History of Present Illness: HPI: [51]yo patient w/ hx of depression BIBA for SI with plan. for On arrival, the patient is AAOx3 and cooperative with my evaluation. No focal complaints of chest pain, shortness of breath, palpitations, N/V, focal GI/ complaints. Currently denies HI. +Auditory hallucinations. Onset: acute on chronic Duration: ongoing Location: home Severity: severe Associated symptoms: Deny chest pain, dyspnea, nausea, rash, palpitations or vomiting Review of Systems Const: Denies: fever(s) or chills Eyes: Denies: change in vision ENMT: Denies: mouth pain Card: Denies: chest pain or palpitations Resp: Denies: dyspnea or non-productive cough GI: Denies: abdominal pain, nausea, vomiting or diarrhea : Denies: dysuria Musc: Denies: extremity pain Skin/Breast: Denies: rash or new lesions Neuro: Denies: weakness in extremities Psych: Reports: depression and suicidal ideation Al/Lymph: Denies: easy bruising PFSH ED PFSH: Medical History Cannabis dependence, daily use Patient states he uses daily for pain management-reports having a medical marijuana card Cervical disc disorder at C4-C5 level with radiculopathy Chronic low back pain with bilateral sciatica COPD (chronic obstructive pulmonary disease) Encounter to establish care Esophageal stricture Hyperlipidemia Hypertension Nicotine dependence, cigarettes, uncomplicated Prediabetes Psychiatric care Radiculopathy of cervical region Radiculopathy of lumbosacral region Right upper quadrant abdominal pain Schizoaffective disorder, bipolar type Surgical History H/O esophagogastroduodenoscopy (11/24/21) Disimpaction of food bolus History of ankle surgery left History of arthroscopic knee surgery Social History Alcohol intake: former Adopted: Yes History of recent travel: No Physical Exam Const: COMMON NORMALS: alert HENMT: COMMON NORMALS: atraumatic HEAD & SCALP: atraumatic MOUTH: moist mucous membranes not abnormal Eye: COMMON NORMALS: EOMs intact bilaterally and conjunctivae normal CONJUNCTIVA: Yes conjunctivae normal Neck/C-Spine: COMMON NORMALS: full ROM and supple Resp: COMMON NORMALS: normal respiratory effort and clear to auscultation bilaterally AUSCULTATION: clear to auscultation bilaterally Cardio: COMMON NORMALS: regular rate RATE: regular rate GI: COMMON NORMALS: Soft to palpation and non-tender PALPATION: Yes Soft to palpation Extremity: COMMON NORMALS: full ROM Neuro: SENSORIUM/ORIENTATION: Yes alert MOTOR EXAM: No Abnormal motor strength present and Other motor observations present (no focal motor deficits) Psych: COMMON NORMALS: speech normal SPEECH: Yes normal speech MOOD & AFFECT: Yes depressed mood Course Vital Signs: Vital signs: Vital Signs Temperature 98.0 F 05/15/22 15:45 Pulse Rate 91 05/15/22 15:45 Respiratory Rate 19 H 05/15/22 15:45 Blood Pressure 122/81 05/15/22 15:45 Pulse Oximetry 97 05/15/22 15:45 Oxygen Delivery Me thod 05/15/22 15:45 MDM - General Adult Medical Decision Making [51]yo patient w/ hx of depression presenting for depression with SI with plan and auditory hallucination. HDS, exam within normal limit Thoughts are linear and organized, and the patient has no VH, or HI. Clinically the patient displays no overt toxidrome; they are well appearing, with low suspicion for toxic ingestion given history and exam. Symptoms unlikely 2/2 anemia, hypothyroidism, infection, or ICH. Workup: CBC, CMP, Lipase, salicylate/tylenol, serum ethanol, UDS Lab findings: wnl [5:30pm] On reassessment, labs and workup wnl. Patient is hemodynamically stable with no acute medical complaints. Case discussed with psychiatric provider Dr. Tam at [facility] psych inpatient with recommendation for admission Disposition: Psych Lab Data : 05/15/22 16:22 05/15/22 16: Laboratory Results WBC 7.0 10^3/uL (4.0-10.0) 05/15/22 16: RBC 3.96 10^6/uL (4.1-5.3) L 05/15/22 16: Hgb 12.8 g/dL (11.7-16.6) 05/15/22 16: Hct 37.6 % (42.0-52.0) L 05/15/22 16: MCV 94.9 fl (80-94) H 05/15/22 16:22 MCH 32.3 pg (28.0-34.0) 05/15/22 16: MCHC 34.0 g/dL (30.0-36.0) 05/15/22 16:22 RDW 12.9 % (12.1-15.1) 05/15/22 16: Plt Count 236 10^3/cmm (130-400) 05/15/22 16:22 MPV 9.8 fL (7.4-10.4) 05/15/22 16: Neut % (Auto) 59.8 % 05/15/22 16: Lymph % (Auto) 29.5 % 05/15/22 16:22 [place] % (Auto) 9.5 % 05/15/22 16:22 Eos % (Auto) 0.4 % 05/15/22 16: Baso % (Auto) 0.7 % 05/15/22 16:22 Neut # (Auto) 4.19 10^3/uL (1.8-7.7) 05/15/22 16: Lymph # (Auto) 2.1 10^3/uL (0.8-4.8) 05/15/22 16:22 [place] # (Auto) 0.7 10^3/uL (0.2-0.9) 05/15/22 16:22 Eos # (Auto) 0.0 10^3/uL (0.0-0.8) 05/15/22 16: Baso # (Auto) 0.1 10^3/uL (0.0-0.1) 05/15/22 16: Nucleated RBC % (auto) 0 % 05/15/22 16: Nucleated RBCs # 0.0 /100WBC 05/15/22 16: Discharge Plan Discharge Patient Disposition: Admitted As Inpatient Clinical Impression: Depression with suicidal ideation Condition: Stable Coding Level of Care Code ED Clothes Drier Repairer for Radha Fwd Exam Comprehensive
[2022-05-15 16:18] VITALS: PULSE 79
--- NOTE | 2022-05-15 16:18 | XRR_ITS ---
PROCEDURE INFORMATION: Exam: XR Chest Exam date and time: 05/15/2022 4:31 PM Age: 51 years old Clinical indication: Screening exam; Other screening; Additional info: Psych clearance TECHNIQUE: Imaging protocol: Radiologic exam of the chest. Views: 1 view. COMPARISON: CR (CHEST, ) 05/06/2022 11:51 PM FINDINGS: Lungs: Mildly hyperaerated lungs consistent with deep inspiratory effort vs reactive airway disease vs mild COPD . Pleural spaces: Unremarkable. No pleural effusion. No pneumothorax. Heart/Mediastinum: Unremarkable. No cardiomegaly. Bones/joints: Unremarkable. XR/XR chest 1V portable [id number] IMPRESSION: Mildly hyperaerated lungs consistent with deep inspiratory effort vs reactive airway disease vs mild COPD .
--- NOTE | 2022-05-15 16:18 | ECG_ITS ---
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 Measurements Intervals [place] Rate: 79 P: 64 PA: 134 QRS: 55 QRSD: 81 T: 52 QT: 420 QTc: 482 Interpretive Statements SINUS RHYTHM Compared to ECG 01/27/2022 22:59:06 Ectopic atrial rhythm no longer present Electronically Signed On 05-15-2022 19:06:21 CDT by Linda Thakur M.D. [id number]
[2022-05-15 16:29] LABS: Basophils # 0.1 10^3/uL (0.0-0.1); Basophils % 0.7 %; Eosinophils % 0.4 %; Hematocrit 37.6 % (42.0-52.0); Hemoglobin 12.8 g/dL (11.7-16.6); Lymphocytes # 2.1 10^3/uL (0.8-4.8); Lymphocytes % 29.5 %; Mean Corpuscular Hemoglobin 32.3 pg (28.0-34.0); Mean Corpuscular Volume 94.9 fl (80-94); Mean Platelet Volume 9.8 fL (7.4-10.4); Monocytes # 0.7 10^3/uL (0.2-0.9); Monocytes % 9.5 %; Neutrophils # 4.19 10^3/uL (1.8-7.7); Neutrophils % 59.8 %; Nucleated Red Blood Cells % 0 %; Platelet Count 236 10^3/cmm (130-400); Red Blood Count 3.96 10^6/uL (4.1-5.3); Red Cell Distribution Width 12.9 % (12.1-15.1)
[2022-05-15 17:04] LABS: Alanine Aminotransferase 26 U/L (0-41); Albumin Level 4.3 g/dL (3.5-5.2); Alkaline Phosphatase 87 IU/L (40-130); Aspartate Amino Transferase 38 U/L (0-40); Blood Urea Nitrogen 16 mg/dL (6-20); Calcium 9.1 mg/dL (8.5-10.5); Carbon Dioxide 24 mmol/L (22-29); Chloride 105 mmol/L (98-107); Free T4 Free Thyroxine 0.92 ng/dL (0.82-1.77); Globulin 2.2 g/dL (1.3-4.6); Glomerular Filtration Rate 119.4 mL/min (90-130); Glucose 87 mg/dL (65-115); Lipase 27 U/L (13-60); Osmolality Calculated 291 mOsm/kg (285-295); Sodium 140 mmol/L (136-145); Thyroid Stimulating Hormone 0.37 uIU/mL (0.27-4.20); Total Bilirubin 0.9 mg/dL (0.15-1.2); Total Protein 6.5 g/dL (6.6-8.7)
[2022-05-15 17:05] LABS: Acetaminophen < 5.0 ug/mL (10-30); Alcohol Level < 10 mg/dL (0-10); Salicylate < 0.3 mg/dL (3-10)
[2022-05-15] MEDS: nicotine 21 mg Patch 1 PATCH TRANSDERMA (17:24)
[2022-05-15 17:31] LABS: SARS Covid-2 Antigen Negative (Negative)
[2022-05-15 21:14] VITALS: BP 116/80; PULSE 97; RESP 20; TEMP 36.4; O2SAT 99
[2022-05-15] MEDS: trazodone 50 mg Tablet PO (21:44)
[2022-05-15] MEDS: acetaminophen 325 mg Tablet 650 MG PO (21:44)
[2022-05-15] MEDS: OLANZapine 5 mg ODT PO (21:45)
--- NOTE | 2022-05-15 22:39 | PC.NURSE ---
Admit from ER at 1930 via w/c/ with staff escort. 96hr hold for psychotic. Multiple previous admissions. Pt was cooperated with part of the admission, would not respond to most of it. Mumbled speech, mentioned several times he didn't need at 96hr. Asked when he would be leaving. Initially refused changing into unit scrubs, however he did comply. Requested a snack and was given food & fluids. Requested a pain pill c/t low back pain. At 2100, resting quietly in be.
[2022-05-16 06:00] VITALS: BP 118/84; PULSE 66; RESP 16; TEMP 36.8; O2SAT 96
[2022-05-16] MEDS: acetaminophen 325 mg Tablet 650 MG PO ×2 (10:10→23:00)
[2022-05-16] MEDS: OLANZapine 5 mg ODT PO ×2 (10:11→15:13)
--- NOTE | 2022-05-16 10:11 | PC.NURSE ---
PRN ZYPREXA ZYDIS 5 MG GIVEN PO PER PT C/O STATED ANXIETY
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
[2022-05-16 14:00] VITALS: BP 107/70; PULSE 98; RESP 18; TEMP 36.6; O2SAT 99
--- NOTE | 2022-05-16 15:16 | PC.NURSE ---
PRN MED PT GIVEN 5MG ZYPREXA ZYDIS FOR CONFUSION, IRRITABLE, WILL CONTINUE TO MONITOR.
[2022-05-16] MEDS: ziprasidone hcl 20 mg Capsule PO (16:26)
[2022-05-16 19:50] VITALS: BP 106/72; PULSE 85; RESP 18; TEMP 37.2; O2SAT 100
[2022-05-16] MEDS: trazodone 50 mg Tablet PO (23:00)
[2022-05-17] MEDS: OLANZapine 5 mg ODT PO ×3 (05:40→16:10)
[2022-05-17] MEDS: ziprasidone hcl 20 mg Capsule PO ×2 (05:40→16:08)
[2022-05-17 05:53] LABS: Amphetamines Screen Urine Positive (Negative); Barbiturates Screen Urine Negative (Negative); Benzodiazepines Screen Urine Negative (Negative); Cocaine Screen Urine Negative (Negative); Opiate Screen Urine Negative (Negative); PCP Screen Urine Negative (Negative); THC Screen Urine Positive (Negative)
[2022-05-17 06:00] VITALS: BP 106/70; PULSE 102; RESP 18; TEMP 36.9; O2SAT 98
--- NOTE | 2022-05-17 13:53 | W.PM.NPUPNS ---
Subjective NPU Subjective: Patient seen on rounds. He reports that he does not know how long he will be here and states that he wishes to pay bills and prevent the loss of his rent. He minimized having any problems that led to his hospitalization today. He reports problems with his knee and demands that these questions be answered while he is here. He also asked for increase in medications for his pain. He reports no side effects from the geodon and reports that it barely started, with reports of sleep disturbance. Mental Status Exam MSE Comments: He is a casually dressed white male who was calm and cooperative on interview. His gait appeared slow and steady he had numerous complaints regarding various ailments throughout much of the interview. His mood was described as depressed. His affect was mood congruent. He did not appear to be responding to internal stimuli there was no clear evidence of any active paranoia or delusional thinking. He endorsed auditory hallucinations but he did not appear to be responding to internal stimuli. His speech was normal in regards to rate and rhythm and prosody with no evidence of any latency in speech his attention appeared adequate his insight appeared feeble. his judgment remained poor. his impulse control remained poor. Vitals/I&O/Wt Last Vital Signs Temp 97.6 F 05/17/22 14:00 Pulse 109 H 05/17/22 14:00 Resp 17 05/17/22 14:00 BP 130/82 05/17/22 14:00 Pulse Ox 98 05/17/22 14:00 O2 Del Method 05/17/22 14:00 Data NPU : 05/15/22 16:22 05/15/22 16:22 A&P Assessment and plan (1) Auditory hallucination: Status: Acute (2) Methamphetamine abuse: Status: Acute (3) Schizoaffective disorder, bipolar type: Status: Chronic (4) Antisocial personality disorder: Status: Acute Plan This is a 51 year old white male with a history of schizoaffective disorder bipolar type and cannabis dependence, methamphetamine use endorsing psychotic symptoms and depressed mood while again reporting noncompliance with previous medications. 1.?Discussed medications with patient, increase geodon 40mg twice a day to target psychosis. Consider addition of antidepressant as well. 2.? Encourage individual, group and milieu therapy 3.? Continue q-15 minute check for safety 4.? Recommend sober living treatment at the highest level of care to which the patient is willing to commit. Involuntary Hold Information 96 Hour Hold: 96 Hour Involuntary Admission: Yes 96 Hour Hold Ending Date: 05/20/22 96 Hour Hold Ending Time: 00:01 Attestations NPU Medical Necessity Statement*: Psychiatric hospitalization is medically necessary to prevent access to lethal means, to reevaluate medication and to coordinate a safe discharge. The patient's likely length of stay is 2-5 days.? ? Coding Level of Care Code Established Pt Acute Cycle Repairer for g Fwd Patient Type Established History Problem Focused Exam Problem Focused Medical Decision Making Straight Forward Diagnoses Auditory hallucination R44.0 Methamphetamine abuse F15.10 Schizoaffective disorder, bipolar type F25.0 Antisocial personality disorder F60.2
[2022-05-17 14:00] VITALS: BP 130/82; PULSE 109; RESP 17; TEMP 36.4; O2SAT 98
[2022-05-17] MEDS: trazodone 50 mg Tablet PO (20:20)
[2022-05-17 20:32] VITALS: BP 127/79; PULSE 99; RESP 17; TEMP 36.7; O2SAT 99
[2022-05-18] MEDS: OLANZapine 5 mg ODT PO ×3 (00:32→14:15)
[2022-05-18 06:00] VITALS: RESP 16
[2022-05-18 06:28] VITALS: BP 121/80; PULSE 86; RESP 18; TEMP 36.6; O2SAT 98
[2022-05-18] MEDS: ziprasidone hcl 20 mg Capsule PO (06:31)
--- NOTE | 2022-05-18 06:39 | PC.NURSE ---
Patient complaining of centeralized left sided chest pains, denies pain radiating down arm, up into jaw, denies numbness. vital signs bp 121/80 pulse 86 temp 97.8 respiration 18. patient also complains of congestion in chest feels like he has pnuemonia. lung sounds clear bilaterally. Informed RN Molina of patients complaints. patient states having anxiety at this time.
[2022-05-18] MEDS: acetaminophen 325 mg Tablet 650 MG PO (10:02)
[2022-05-18 14:00] VITALS: BP 124/80; PULSE 88; RESP 16; TEMP 36.5; O2SAT 98
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
--- NOTE | 2022-05-18 14:33 | P.NPUPN_ITS ---
Subjective NPU Subjective: Patient seen on rounds. Patient is 51 year old white male with hx of schizoaffective disorder, methamphetamine use and antisocial personality disorder currently on 96 admitted for reports of suicidal ideation and depressed mood. Patient minimizes suicidal thoughts, and continues to focus on someone examining his knee problems here. Patient reports that he has business to take care of outside of here so that he does not lose his trailer. He reports that he continues to struggle with irritability and hallucinations intermittently. He admits to difficulty with following up with outpatient treatment in the past and admits to noncompliance with medications. Mental Status Exam MSE Comments: He is a casually dressed white male who was calm and cooperative on interview. His gait appeared slow and steady.He had numerous somatic complaints particularly focusing on his knee. His mood was described as depressed. His affect was mood congruent and restricted. He did not appear to be responding to internal stimuli. there was no clear evidence of any active paranoia or delusional thinking. He minimized auditory hallucinations but he did not appear to be responding to internal stimuli. His speech was normal in regards to rate and rhythm and prosody with no evidence of any latency in speech. His attention appeared adequate. His insight appeared feeble. His judgment remained poor. His impulse control remained poor. Vitals/I&O/Wt Last Vital Signs Temp 97.8 F 05/18/22 06:28 Pulse 86 05/18/22 06:28 Resp 18 05/18/22 06:28 BP 121/80 05/18/22 06:28 Pulse Ox 98 05/18/22 06:28 O2 Del Method 05/18/22 06:28 Data NPU : 05/15/22 16:22 05/15/22 16:22 A&P Assessment and plan (1) Auditory hallucination: Status: Acute (2) Methamphetamine abuse: Status: Acute (3) Schizoaffective disorder, bipolar type: Status: Chronic (4) Antisocial personality disorder: Status: Acute Plan This is a 51 year old white male with a history of schizoaffective disorder bipolar type and cannabis dependence, methamphetamine use endorsing psychotic symptoms and depressed mood while again reporting noncompliance with previous medications. 1.?Discussed medications with patient, increase geodon 40mg twice a day to tar get psychosis. Consider addition of antidepressant as well. 2.? Encourage individual, group and milieu therapy 3.? Continue q-15 minute check for safety 4.? Recommend sober living treatment at the highest level of care to which the patient is willing to commit. Involuntary Hold Information 96 Hour Hold: 96 Hour Involuntary Admission: Yes 96 Hour Hold Ending Date: 05/20/22 96 Hour Hold Ending Time: 00:01 Attestations NPU Medical Necessity Statement*: Psychiatric hospitalization is medically necessary to prevent access to lethal means, to reevaluate medication and to coordinate a safe discharge. The patient's likely length of stay is 2-5 days.? ? Coding Level of Care Code Established Pt Acute Flamer After Lasting for Chg Fwd Patient Type Established History Problem Focused Exam Problem Focused Medical Decision Making Straight Forward Diagnoses Auditory hallucination R44.0 Methamphetamine abuse F15.10 Schizoaffective disorder, bipolar type F25.0 Antisocial personality disorder F60.2
[2022-05-18] MEDS: ziprasidone hcl 40 mg Capsule PO (17:41)
[2022-05-18 20:42] VITALS: BP 137/75; PULSE 100; RESP 18; TEMP 36.8; O2SAT 98
[2022-05-18] MEDS: ibuprofen 600 mg Tablet PO (21:25)
[2022-05-19 06:00] VITALS: BP 131/76; PULSE 95; RESP 18; TEMP 36.6; O2SAT 98
[2022-05-19] MEDS: ziprasidone hcl 40 mg Capsule PO (06:42)
[2022-05-19] MEDS: OLANZapine 5 mg ODT PO ×2 (08:57→12:29)
[2022-05-19] MEDS: nicotine 2 mg Gum BUCCAL (08:57)
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
[2022-05-19 13:46] VITALS: BP 131/76; PULSE 95; RESP 18; TEMP 36.6; O2SAT 98
[2022-05-19 14:00] VITALS: BP 116/70; PULSE 88; RESP 20; TEMP 36.4; O2SAT 97
== END 2022-05-19 15:25 | disposition home or self-care (01) | DRG 885 ==
LOC: ER 16:21 → NP 05-16 05:33
PROVIDERS: Admitting Provider Psychiatry & Neurology Psychiatry; Emergency Provider Emergency Medicine; PCP Family Medicine Adult Medicine; Visit Provider Psychiatry & Neurology Psychiatry
DX: F25.0 Schizoaffective disorder, bipolar type (principal); R45.851 Suicidal ideations; F60.2 Antisocial personality disorder; F15.10 Other stimulant abuse, uncomplicated; F12.20 Cannabis dependence, uncomplicated; F17.210 Nicotine dependence, cigarettes, uncomplicated; T43.596A Underdosing of other antipsychotics and neuroleptics, initial encounter; Z91.128 Patient's intentional underdosing of medication regimen for other reason; G89.29 Other chronic pain; M54.42 Lumbago with sciatica, left side; M54.41 Lumbago with sciatica, right side; I10 Essential (primary) hypertension; E78.5 Hyperlipidemia, unspecified; Z62.810 Personal history of physical and sexual abuse in childhood
CPT/HCPCS: 71045; 80053; 80306; 80307; 83690; 84439; 84443; 85025; 87426; 93005; 97150; 97165; 99285; J3535

== ENCOUNTER 2022-06-04 17:49 | Emergency (ER) | payer MEDICAID, SELFPAY ==
--- NOTE | 2022-06-04 18:08 | W.ED.GENADLT ---
Documented by User: Attila Thomas MD 06/04/22 22:49 HPI - General Adult General: Chief complaint: Psychiatric Symptoms Stated complaint: PSYCH EVAL; ABD PAIN Time Seen by Provider: 06/04/22 17:50 History of Present Illness: Patient comes in with concerns for bugs under his skin and in his stool. States that this has been going on for a while after he went to another trailer and brought the bugs back to his own trailer. States that when he walks into his trailer they immediately cover him because there is only bugs after he has sprayed and bug bombed the trailer. On physical exam he has multiple superficial wounds on his left hand where he has picked at the skin. While talking to him he points to his left forearm and says here is a bug right here and starts digging at a spot in his skin. There is clearly no bugs under the skin. I asked the patient if he smokes methamphetamines and he states its been 5 or 6 days. I tried to talk to him about meth induced parasitosis and he immediately became mad to tell me out on what I am doing and that I am long and that I am not listening to him. I tried to calm him down but he continued to get angrier and more aggressive. Stating he is homicidal and wants to kill everybody then kill himself. Associated symptoms: Deny chest pain, dyspnea, headache(s), nausea, rash, palpitations or vomiting Review of Systems Const: Denies: fever(s) or body aches Eyes: Denies: change in vision or blurry vision ENMT: Denies: throat pain or odynophagia Card: Denies: chest pain or palpitations Resp: Denies: dyspnea or productive cough GI: Denies: abdominal pain, nausea or vomiting : Denies: flank pain or dysuria Musc: Denies: neck pain or back pain Skin/Breast: Denies: rash or pruritus Neuro: Denies: headache(s) or numbness in extremities Psych: Reports: irritability, suicidal ideation and homicidal ideation Endo: Denies: polyuria or excessive sweating [facility] ED PFSH: Medical History (Updated 07/25/22 @ 00:01 by PATT Ocasio) Alcohol use disorder Cannabis dependence, daily use Patient states he uses daily for pain management-reports having a medical marijuana card Cervical disc disorder at C4-C5 level with radiculopathy Chronic low back pain with bilateral sciatica COPD (chronic obstructive pulmonary disease) Encounter to establish care Esophageal foreign body Esophageal stricture Hallucinations, visual Hyperlipidemia Hypertension Methamphetamine abuse Multiple substance abuse Alcohol, Cannabis, Methamphemine, nicotine Nicotine dependence, cigarettes, uncomplicated Prediabetes Radiculopathy of cervical region Radiculopathy of lumbosacral region Right medial knee pain Schizoaffective disorder, bipolar type Surgical History H/O esophagogastroduodenoscopy (11/24/21) Disimpaction of food bolus History of ankle surgery left History of arthroscopic knee surgery History of foot surgery Social History Smoking and tobacco status: current every day smoker (1ppd) cigarettes Packs smoked per day: 1 Alcohol intake: current Alcohol intake frequency: few times a week Alcohol type: beer Adopted: Yes Lives independently: Yes Household members: none Housing: Other Details: [facility] Marital status: Single Highest education level completed: 9th Grade service: No Current occupational status: disabled History of recent travel: No Current gender identity: Male Physical Exam Const: COMMON NORMALS: patient oriented x3 and alert HENMT: COMMON NORMALS: normocephalic and atraumatic HEAD & SCALP: normocephalic and atraumatic Eye: COMMON NORMALS: Equal, round and reactive pupils present and EOMs intact bilaterally PUPIL: Yes Equal, round and reactive pupils present Neck/C-Spine: COMMON NORMALS: full ROM and supple Resp: COMMON NORMALS: normal respiratory effort, No retractions and No use of accessory muscles Cardio: COMMON NORMALS: regular rate and regular rhythm RATE: regular rate RHYTHM: regular rhythm GI: COMMON NORMALS: Normal to inspection, nondistended, normoactive bowel sounds present, Soft to palpation and non-tender PALPATION: Yes Soft to palpation Back/Pelvis: COMMON NORMALS: thoracic and lumbar spine normal to inspection and no thoracic nor lumbar tenderness Extremity: COMMON NORMALS: normal to inspection and full ROM OTHER: multiple superficial wounds on his left hand where he has picked at the skin. Neuro: COMMON NORMALS: patient oriented x3 SENSORIUM/ORIENTATION: Yes alert Psych: COMMON NORMALS: mental status grossly normal OTHER: Patient was angry and delusional Skin: COMMON NORMALS: no rashes or lesions noted and no wounds GENERAL SKIN EXAM: no rashes or lesions noted Course Vital Signs: Vital signs: Vital Signs Temperature 98.7 F 06/04/22 18:23 Pulse Rate 84 06/05/22 13:22 Respiratory Rate 16 06/06/22 09:00 Blood Pressure 118/94 06/06/22 09:00 Pulse Oximetry 100 06/05/22 13:22 Oxygen Delivery Me thod 06/05/22 13:22 MDM - General Adult Medical Decision Making Patient comes in with concerns for bugs under his skin and in his stool. States that this has been going on for a while after he went to another trailer and brought the bugs back to his own trailer. States that when he walks into his trailer they immediately cover him because there is only bugs after he has sprayed and bug bombed the trailer. On physical exam he has multiple superficial wounds on his left hand where he has picked at the skin. While talking to him he points to his left forearm and says here is a bug right here and starts digging at a spot in his skin. There is clearly no bugs under the skin. I asked the patient if he smokes methamphetamines and he states its been 5 or 6 days. I tried to talk to him about meth induced parasitosis and he immediately became mad to tell me out on what I am doing and that I am long and that I am not listening to him. I tried to calm him down but he continued to get angrier and more aggressive. Stating he is homicidal and wants to kill everybody then kill himself. We will place him on a clinical hold, check labs, consult psych, and reassess. On reassessment we are trying to find a facility to admit the patient for further treatment of his suicidal and homicidal ideation. Will sign out to the oncoming physician. Lab Data 06/04/22 18:15 06/04/22 18:15 Laboratory Results WBC 5.7 10^3/uL (4.0-10.0) 06/04/22 18:15 RBC 4.04 10^6/uL (4.1-5.3) L 06/04/22 18:15 Hgb 13.1 g/dL (11.7-16.6) 06/04/22 18:15 Hct 38.2 % (42.0-52.0) L 06/04/22 18:15 MCV 94.6 fl (80-94) H 06/04/22 18:15 MCH 32.4 pg (28.0-34.0) 06/04/22 18:15 MCHC 34.3 g/dL (30.0-36.0) 06/04/22 18:15 RDW 13.2 % (12.1-15.1) 06/04/22 18:15 Plt Count 277 10^3/cmm (130-400) 06/04/22 18:15 MPV 9.8 fL (7.4-10.4) 06/04/22 18:15 Neut % (Auto) 54.5 % 06/04/22 18:15 Lymph % (Auto) 33.1 % 06/04/22 18:15 Harper % (Auto) 9.0 % 06/04/22 18:15 Eos % (Auto) 2.5 % 06/04/22 18:15 Baso % (Auto) 0.7 % 06/04/22 18:15 Neut # (Auto) 3.08 10^3/uL (1.8-7.7) 06/04/22 18:15 Lymph # (Auto) 1.9 10^3/uL (0.8-4.8) 06/04/22 18:15 Harper # (Auto) 0.5 10^3/uL (0.2-0.9) 06/04/22 18:15 Eos # (Auto) 0.1 10^3/uL (0.0-0.8) 06/04/22 18:15 Baso # (Auto) 0.0 10^3/uL (0.0-0.1) 06/04/22 18:15 Nucleated RBC % (auto) 0 % 06/04/22 18:15 Nucleated RBCs # 0.0 /100WBC 06/04/22 18:15 Sodium 142 mmol/L (136-145) 06/04/22 18:15 Potassium 4.4 mmol/L (3.5-5.1) 06/04/22 18:15 Chloride 108 mmol/L (98-107) H 06/04/22 18:15 Carbon Dioxide 22 mmol/L (22-29) 06/04/22 18:15 Anion Gap 16.4 (5-19) 06/04/22 18:15 BUN 22 mg/dL (6-20) H 06/04/22 18:15 Creatinine 0.8 mg/dL (0.7-1.2) 06/04/22 18:15 GFR Calculation 102.3 mL/min (90-130) 06/04/22 18:15 Glucose 110 mg/dL (65-115) 06/04/22 18:15 Calculated Osmolality 298 mOsm/kg (285-295) H 06/04/22 18:15 Calcium 9.6 mg/dL (8.5-10.5) 06/04/22 18:15 Total Bilirubin 0.4 mg/dL (0.15-1.2) 06/04/22 18:15 AST 33 U/L (0-40) 06/04/22 18:15 ALT 33 U/L (0-41) 06/04/22 18:15 Alkaline Phosphatase 106 U/L (40-130) 06/04/22 18:15 Total Protein 6.7 g/dL (6.6-8.7) 06/04/22 18:15 Albumin 4.8 g/dL (3.5-5.2) 06/04/22 18:15 Globulin 1.9 g/dL (1.3-4.6) 06/04/22 18:15 Vitamin B12 314 pg/mL (232-1245) 06/05/22 11:22 Folate 11.2 ng/mL (4.5-32.2) 06/05/22 11:22 TSH 0.86 uIU/mL (0.27-4.20) 06/05/22 11:22 Free T4 0.86 ng/dL (0.82-1.77) 06/05/22 11:22 Urine Color Yellow (Yellow) 06/05/22 11:10 Urine Appearance Clear (CLEAR) 06/05/22 11:10 Urine pH 7 (5-7) 06/05/22 11:10 Ur Specific [place] 1.010 (1.005-1.030) 06/05/22 11:10 Urine Protein Neg (Negative) 06/05/22 11:10 Urine Glucose (UA) Norm (Normal) 06/05/22 11:10 Urine Ketones 1+ (Negative) H 06/05/22 11:10 Urine Blood Neg (Negative) 06/05/22 11:10 Urine Nitrate Negative (Negative) 06/05/22 11:10 Urine Bilirubin Neg (Negative) 06/05/22 11:10 Urine Urobilinogen 4 mg/dL (Negative) H 06/05/22 11:10 Ur Leukocyte Esterase Negative (Negative) 06/05/22 11:10 Salicylates < 0.3 mg/dL (3-10) L 06/04/22 18:15 Urine Opiates Screen Negative ng/mL (Negative) 06/04/22 17:57 Acetaminophen < 5.0 ug/mL (10-30) L 06/04/22 18:15 Ur Barbiturates Screen Negative ng/mL (Negative) 06/04/22 17:57 Ur Phencyclidine Scrn Negative ng/mL (Negative) 06/04/22 17:57 Ur Amphetamines Screen Negative ng/mL (Negative) 06/04/22 17:57 U Benzodiazepines Scrn Negative ng/mL (Negative) 06/04/22 17:57 Urine Cocaine Screen Negative ng/mL (Negative) 06/04/22 17:57 U Marijuana (THC) Screen Positive ng/mL (Negative) H 06/04/22 17:57 Ethyl Alcohol < 10 mg/dL (0-10) 06/04/22 18:15 RPR w/Rflx to Titer Non-reactive (NON-REACTIVE) 06/05/22 11:22 SARS-CoV-2 Ag (Rapid) Negative (Negative) 06/05/22 11:22 Discharge Plan Discharge Patient Disposition: Home Clinical Impression: Methamphetamine abuse, Suicidal ideation, Drug-induced psychotic disorder Condition: Stable Prescriptions: No Action trazodone 50 mg tablet 50 mg PO BEDTIME ziprasidone HCl 40 mg capsule 40 mg PO BID Discharge Orders: Discharge ED (Routine); Ordered 06/06/22 Ordered By: Javi Peck Referrals: Jasson Torres MD [Primary Care Provider] - Discharge Diet: Usual diet Discharge Activity: Resume usual activity Patient Instructions: Opioid Safety Activity Restrictions/Additional Instructions: Keep appointment for follow-up with behavioral health. Recommend abstinence from methamphetamines. Also recommend participating in outpatient treatment program such as at [facility] . Coding Level of Care Code ED [employer] Cook for Chg Fwd Exam Comprehensive Documented by User: Miko Whitley DO 06/06/22 05:16 HPI - General Adult General: Chief complaint: Psychiatric Symptoms Stated complaint: PSYCH EVAL; ABD PAIN Time Seen by Provider: 06/04/22 17:50 PFSH ED PFSH: Medical History (Updated 07/25/22 @ 00:01 by PATT Ocasio) Alcohol use disorder Cannabis dependence, daily use Patient states he uses daily for pain management-reports having a medical marijuana card Cervical disc disorder at C4-C5 level with radiculopathy Chronic low back pain with bilateral sciatica COPD (chronic obstructive pulmonary disease) Encounter to establish care Esophageal foreign body Esophageal stricture Hallucinations, visual Hyperlipidemia Hypertension Methamphetamine abuse Multiple substance abuse Alcohol, Cannabis, Methamphemine, nicotine Nicotine dependence, cigarettes, uncomplicated Prediabetes Radiculopathy of cervical region Radiculopathy of lumbosacral region Right medial knee pain Schizoaffective disorder, bipolar type Surgical History H/O esophagogastroduodenoscopy (11/24/21) Disimpaction of food bolus History of ankle surgery left History of arthroscopic knee surgery History of foot surgery Social History Smoking and tobacco status: current every day smoker (1ppd) cigarettes Packs smoked per day: 1 Alcohol intake: current Alcohol intake frequency: few times a week Alcohol type: beer Adopted: Yes Lives independently: Yes Household members: none Housing: Other Details: camper Marital status: Single Highest education level completed: 9th Grade service: No Current occupational status: disabled History of recent travel: No Current gender identity: Male Course Vital Signs: Vital signs: Vital Signs Temperature 98.7 F 06/04/22 18:23 Pulse Rate 84 06/05/22 13:22 Respiratory Rate 16 06/06/22 09:00 Blood Pressure 118/94 06/06/22 09:00 Pulse Oximetry 100 06/05/22 13:22 Oxygen Delivery Me thod 06/05/22 13:22 MDM - General Adult Medical Decision Making Patient comes in with concerns for bugs under his skin and in his stool. States that this has been going on for a while after he went to another trailer and brought the bugs back to his own trailer. States that when he walks into his trailer they immediately cover him because there is only bugs after he has sprayed and bug bombed the trailer. On physical exam he has multiple superficial wounds on his left hand where he has picked at the skin. While talking to him he points to his left forearm and says here is a bug right here and starts digging at a spot in his skin. There is clearly no bugs under the skin. I asked the patient if he smokes methamphetamines and he states its been 5 or 6 days. I tried to talk to him about meth induced parasitosis and he immediately became mad to tell me out on what I am doing and that I am long and that I am not listening to him. I tried to calm him down but he continued to get angrier and more aggressive. Stating he is homicidal and wants to kill everybody then kill himself. We will place him on a clinical hold, check labs, consult psych, and reassess. On reassessment we are trying to find a facility to admit the patient for further treatment of his suicidal and homicidal ideation. Will sign out to the oncoming physician. 51 year old suicidal male checked out to me by the previous physician at shift change period he remains medically stable period he has been calm, and has not needed sedation in any form by my order. We do not have any beds at our facility, and this patient will require neuro psychiatric unit admission. We are all waiting callbacks from several facilities. Lab Data 06/04/22 18:15 06/04/22 18:15 Laboratory Results WBC 5.7 10^3/uL (4.0-10.0) 06/04/22 18:15 RBC 4.04 10^6/uL (4.1-5.3) L 06/04/22 18:15 Hgb 13.1 g/dL (11.7-16.6) 06/04/22 18:15 Hct 38.2 % (42.0-52.0) L 06/04/22 18:15 MCV 94.6 fl (80-94) H 06/04/22 18:15 MCH 32.4 pg (28.0-34.0) 06/04/22 18:15 MCHC 34.3 g/dL (30.0-36.0) 06/04/22 18:15 RDW 13.2 % (12.1-15.1) 06/04/22 18:15 Plt Count 277 10^3/cmm (130-400) 06/04/22 18:15 MPV 9.8 fL (7.4-10.4) 06/04/22 18:15 Neut % (Auto) 54.5 % 06/04/22 18:15 Lymph % (Auto) 33.1 % 06/04/22 18:15 Harper % (Auto) 9.0 % 06/04/22 18:15 Eos % (Auto) 2.5 % 06/04/22 18:15 Baso % (Auto) 0.7 % 06/04/22 18:15 Neut # (Auto) 3.08 10^3/uL (1.8-7.7) 06/04/22 18:15 Lymph # (Auto) 1.9 10^3/uL (0.8-4.8) 06/04/22 18:15 Harper # (Auto) 0.5 10^3/uL (0.2-0.9) 06/04/22 18:15 Eos # (Auto) 0.1 10^3/uL (0.0-0.8) 06/04/22 18:15 Baso # (Auto) 0.0 10^3/uL (0.0-0.1) 06/04/22 18:15 Nucleated RBC % (auto) 0 % 06/04/22 18:15 Nucleated RBCs # 0.0 /100WBC 06/04/22 18:15 Sodium 142 mmol/L (136-145) 06/04/22 18:15 Potassium 4.4 mmol/L (3.5-5.1) 06/04/22 18:15 Chloride 108 mmol/L (98-107) H 06/04/22 18:15 Carbon Dioxide 22 mmol/L (22-29) 06/04/22 18:15 Anion Gap 16.4 (5-19) 06/04/22 18:15 BUN 22 mg/dL (6-20) H 06/04/22 18:15 Creatinine 0.8 mg/dL (0.7-1.2) 06/04/22 18:15 GFR Calculation 102.3 mL/min (90-130) 06/04/22 18:15 Glucose 110 mg/dL (65-115) 06/04/22 18:15 Calculated Osmolality 298 mOsm/kg (285-295) H 06/04/22 18:15 Calcium 9.6 mg/dL (8.5-10.5) 06/04/22 18:15 Total Bilirubin 0.4 mg/dL (0.15-1.2) 06/04/22 18:15 AST 33 U/L (0-40) 06/04/22 18:15 ALT 33 U/L (0-41) 06/04/22 18:15 Alkaline Phosphatase 106 U/L (40-130) 06/04/22 18:15 Total Protein 6.7 g/dL (6.6-8.7) 06/04/22 18:15 Albumin 4.8 g/dL (3.5-5.2) 06/04/22 18:15 Globulin 1.9 g/dL (1.3-4.6) 06/04/22 18:15 Vitamin B12 314 pg/mL (232-1245) 06/05/22 11:22 Folate 11.2 ng/mL (4.5-32.2) 06/05/22 11:22 TSH 0.86 uIU/mL (0.27-4.20) 06/05/22 11:22 Free T4 0.86 ng/dL (0.82-1.77) 06/05/22 11:22 Urine Color Yellow (Yellow) 06/05/22 11:10 Urine Appearance Clear (CLEAR) 06/05/22 11:10 Urine pH 7 (5-7) 06/05/22 11:10 Ur Specific [place] 1.010 (1.005-1.030) 06/05/22 11:10 Urine Protein Neg (Negative) 06/05/22 11:10 Urine Glucose (UA) Norm (Normal) 06/05/22 11:10 Urine Ketones 1+ (Negative) H 06/05/22 11:10 Urine Blood Neg (Negative) 06/05/22 11:10 Urine Nitrate Negative (Negative) 06/05/22 11:10 Urine Bilirubin Neg (Negative) 06/05/22 11:10 Urine Urobilinogen 4 mg/dL (Negative) H 06/05/22 11:10 Ur Leukocyte Esterase Negative (Negative) 06/05/22 11:10 Salicylates < 0.3 mg/dL (3-10) L 06/04/22 18:15 Urine Opiates Screen Negative ng/mL (Negative) 06/04/22 17:57 Acetaminophen < 5.0 ug/mL (10-30) L 06/04/22 18:15 Ur Barbiturates Screen Negative ng/mL (Negative) 06/04/22 17:57 Ur Phencyclidine Scrn Negative ng/mL (Negative) 06/04/22 17:57 Ur Amphetamines Screen Negative ng/mL (Negative) 06/04/22 17:57 U Benzodiazepines Scrn Negative ng/mL (Negative) 06/04/22 17:57 Urine Cocaine Screen Negative ng/mL (Negative) 06/04/22 17:57 U Marijuana (THC) Screen Positive ng/mL (Negative) H 06/04/22 17:57 Ethyl Alcohol < 10 mg/dL (0-10) 06/04/22 18:15 RPR w/Rflx to Titer Non-reactive (NON-REACTIVE) 06/05/22 11:22 SARS-CoV-2 Ag (Rapid) Negative (Negative) 06/05/22 11:22 Discharge Plan Discharge Patient Disposition: Home Clinical Impression: Methamphetamine abuse, Suicidal ideation, Drug-induced psychotic disorder Condition: Stable Prescriptions: No Action trazodone 50 mg tablet 50 mg PO BEDTIME ziprasidone HCl 40 mg capsule 40 mg PO BID Discharge Orders: Discharge ED (Routine); Ordered 06/06/22 Ordered By: Javi Peck Referrals: Jasson Torres MD [Primary Care Provider] - Discharge Diet: Usual diet Discharge Activity: Resume usual activity Patient Instructions: Opioid Safety Activity Restrictions/Additional Instructions: Keep appointment for follow-up with behavioral health. Recommend abstinence from methamphetamines. Also recommend participating in outpatient treatment program such as at [facility] . Coding Level of Care Code ED [employer] Cook for Chg Fwd Exam Comprehensive Documented by User: Javi Peck DO 06/10/22 06:49 HPI - General Adult General: Chief complaint: Psychiatric Symptoms Stated complaint: PSYCH EVAL; ABD PAIN Time Seen by Provider: 06/04/22 17:50 PFSH ED PFSH: Medical History (Updated 07/25/22 @ 00:01 by PATT Ocasio) Alcohol use disorder Cannabis dependence, daily use Patient states he uses daily for pain management-reports having a medical marijuana card Cervical disc disorder at C4-C5 level with radiculopathy Chronic low back pain with bilateral sciatica COPD (chronic obstructive pulmonary disease) Encounter to establish care Esophageal foreign body Esophageal stricture Hallucinations, visual Hyperlipidemia Hypertension Methamphetamine abuse Multiple substance abuse Alcohol, Cannabis, Methamphemine, nicotine Nicotine dependence, cigarettes, uncomplicated Prediabetes Radiculopathy of cervical region Radiculopathy of lumbosacral region Right medial knee pain Schizoaffective disorder, bipolar type Surgical History H/O esophagogastroduodenoscopy (11/24/21) Disimpaction of food bolus History of ankle surgery left History of arthroscopic knee surgery History of foot surgery Social History Smoking and tobacco status: current every day smoker (1ppd) cigarettes Packs smoked per day: 1 Alcohol intake: current Alcohol intake frequency: few times a week Alcohol type: beer Adopted: Yes Lives independently: Yes Household members: none Housing: Other Details: camper Marital status: Single Highest education level completed: 9th Grade service: No Current occupational status: disabled History of recent travel: No Current gender identity: Male Course Vital Signs: Vital signs: Vital Signs Temperature 98.7 F 06/04/22 18:23 Pulse Rate 84 06/05/22 13:22 Respiratory Rate 16 06/06/22 09:00 Blood Pressure 118/94 06/06/22 09:00 Pulse Oximetry 100 06/05/22 13:22 Oxygen Delivery Me shirleyod 06/05/22 13:22 MDM - General Adult Medical Decision Making Patient comes in with concerns for bugs under his skin and in his stool. States that this has been going on for a while after he went to another trailer and brought the bugs back to his own trailer. States that when he walks into his trailer they immediately cover him because there is only bugs after he has sprayed and bug bombed the trailer. On physical exam he has multiple superficial wounds on his left hand where he has picked at the skin. While talking to him he points to his left forearm and says here is a bug right here and starts digging at a spot in his skin. There is clearly no bugs under the skin. I asked the patient if he smokes methamphetamines and he states its been 5 or 6 days. I tried to talk to him about meth induced parasitosis and he immediately became mad to tell me out on what I am doing and that I am long and that I am not listening to him. I tried to calm him down but he continued to get angrier and more aggressive. Stating he is homicidal and wants to kill everybody then kill himself. We will place him on a clinical hold, check labs, consult psych, and reassess. On reassessment we are trying to find a facility to admit the patient for further treatment of his suicidal and homicidal ideation. Will sign out to the oncoming physician. 51 year old suicidal male checked out to me by the previous physician at shift change period he remains medically stable period he has been calm, and has not needed sedation in any form by my order. We do not have any beds at our facility, and this patient will require neuro psychiatric unit admission. We are all waiting callbacks from several facilities. 06/06/2022. Patient is awake alert and oriented is no longer expressing any homicidal or suicidal ideation. He is no clinically no longer under the influence of methamphetamines. Psychiatry was consulted Dr. Soares is can see him in the emergency room. He agrees there is no benefit to be derived at this time from admitting the patient to neuropsychiatry these issues were methamphetamine induced. Patient encouraged to abstain from methamphetamines and seek outpatient treatment program. He also has a follow-up appointment scheduled at [facility] we will discharge. Lab Data 06/04/22 18:15 06/04/22 18:15 Laboratory Results WBC 5.7 10^3/uL (4.0-10.0) 06/04/22 18:15 RBC 4.04 10^6/uL (4.1-5.3) L 06/04/22 18:15 Hgb 13.1 g/dL (11.7-16.6) 06/04/22 18:15 Hct 38.2 % (42.0-52.0) L 06/04/22 18:15 MCV 94.6 fl (80-94) H 06/04/22 18:15 MCH 32.4 pg (28.0-34.0) 06/04/22 18:15 MCHC 34.3 g/dL (30.0-36.0) 06/04/22 18:15 RDW 13.2 % (12.1-15.1) 06/04/22 18:15 Plt Count 277 10^3/cmm (130-400) 06/04/22 18:15 MPV 9.8 fL (7.4-10.4) 06/04/22 18:15 Neut % (Auto) 54.5 % 06/04/22 18:15 Lymph % (Auto) 33.1 % 06/04/22 18:15 Harper % (Auto) 9.0 % 06/04/22 18:15 Eos % (Auto) 2.5 % 06/04/22 18:15 Baso % (Auto) 0.7 % 06/04/22 18:15 Neut # (Auto) 3.08 10^3/uL (1.8-7.7) 06/04/22 18:15 Lymph # (Auto) 1.9 10^3/uL (0.8-4.8) 06/04/22 18:15 Harper # (Auto) 0.5 10^3/uL (0.2-0.9) 06/04/22 18:15 Eos # (Auto) 0.1 10^3/uL (0.0-0.8) 06/04/22 18:15 Baso # (Auto) 0.0 10^3/uL (0.0-0.1) 06/04/22 18:15 Nucleated RBC % (auto) 0 % 06/04/22 18:15 Nucleated RBCs # 0.0 /100WBC 06/04/22 18:15 Sodium 142 mmol/L (136-145) 06/04/22 18:15 Potassium 4.4 mmol/L (3.5-5.1) 06/04/22 18:15 Chloride 108 mmol/L (98-107) H 06/04/22 18:15 Carbon Dioxide 22 mmol/L (22-29) 06/04/22 18:15 Anion Gap 16.4 (5-19) 06/04/22 18:15 BUN 22 mg/dL (6-20) H 06/04/22 18:15 Creatinine 0.8 mg/dL (0.7-1.2) 06/04/22 18:15 GFR Calculation 102.3 mL/min (90-130) 06/04/22 18:15 Glucose 110 mg/dL (65-115) 06/04/22 18:15 Calculated Osmolality 298 mOsm/kg (285-295) H 06/04/22 18:15 Calcium 9.6 mg/dL (8.5-10.5) 06/04/22 18:15 Total Bilirubin 0.4 mg/dL (0.15-1.2) 06/04/22 18:15 AST 33 U/L (0-40) 06/04/22 18:15 ALT 33 U/L (0-41) 06/04/22 18:15 Alkaline Phosphatase 106 U/L (40-130) 06/04/22 18:15 Total Protein 6.7 g/dL (6.6-8.7) 06/04/22 18:15 Albumin 4.8 g/dL (3.5-5.2) 06/04/22 18:15 Globulin 1.9 g/dL (1.3-4.6) 06/04/22 18:15 Vitamin B12 314 pg/mL (232-1245) 06/05/22 11:22 Folate 11.2 ng/mL (4.5-32.2) 06/05/22 11:22 TSH 0.86 uIU/mL (0.27-4.20) 06/05/22 11:22 Free T4 0.86 ng/dL (0.82-1.77) 06/05/22 11:22 Urine Color Yellow (Yellow) 06/05/22 11:10 Urine Appearance Clear (CLEAR) 06/05/22 11:10 Urine pH 7 (5-7) 06/05/22 11:10 Ur Specific [place] 1.010 (1.005-1.030) 06/05/22 11:10 Urine Protein Neg (Negative) 06/05/22 11:10 Urine Glucose (UA) Norm (Normal) 06/05/22 11:10 Urine Ketones 1+ (Negative) H 06/05/22 11:10 Urine Blood Neg (Negative) 06/05/22 11:10 Urine Nitrate Negative (Negative) 06/05/22 11:10 Urine Bilirubin Neg (Negative) 06/05/22 11:10 Urine Urobilinogen 4 mg/dL (Negative) H 06/05/22 11:10 Ur Leukocyte Esterase Negative (Negative) 06/05/22 11:10 Salicylates < 0.3 mg/dL (3-10) L 06/04/22 18:15 Urine Opiates Screen Negative ng/mL (Negative) 06/04/22 17:57 Acetaminophen < 5.0 ug/mL (10-30) L 06/04/22 18:15 Ur Barbiturates Screen Negative ng/mL (Negative) 06/04/22 17:57 Ur Phencyclidine Scrn Negative ng/mL (Negative) 06/04/22 17:57 Ur Amphetamines Screen Negative ng/mL (Negative) 06/04/22 17:57 U Benzodiazepines Scrn Negative ng/mL (Negative) 06/04/22 17:57 Urine Cocaine Screen Negative ng/mL (Negative) 06/04/22 17:57 U Marijuana (THC) Screen Positive ng/mL (Negative) H 06/04/22 17:57 Ethyl Alcohol < 10 mg/dL (0-10) 06/04/22 18:15 RPR w/Rflx to Titer Non-reactive (NON-REACTIVE) 06/05/22 11:22 SARS-CoV-2 Ag (Rapid) Negative (Negative) 06/05/22 11:22 Discharge Plan Discharge Patient Disposition: Home Clinical Impression: Methamphetamine abuse, Suicidal ideation, Drug-induced psychotic disorder Condition: Stable Prescriptions: No Action trazodone 50 mg tablet 50 mg PO BEDTIME ziprasidone HCl 40 mg capsule 40 mg PO BID Discharge Orders: Discharge ED (Routine); Ordered 06/06/22 Ordered By: Javi Peck Referrals: Jasson Torres MD [Primary Care Provider] - Discharge Diet: Usual diet Discharge Activity: Resume usual activity Patient Instructions: Opioid Safety Activity Restrictions/Additional Instructions: Keep appointment for follow-up with behavioral health. Recommend abstinence from methamphetamines. Also recommend participating in outpatient treatment program such as at [facility] . Coding Level of Care Code ED French Pastry Cook for Chg Fwd Exam Comprehensive
[2022-06-04 18:23] VITALS: BP 136/87; PULSE 87; RESP 16; TEMP 37.1; O2SAT 97; BMI 23.0
[2022-06-04 18:27] LABS: Basophils % 0.7 %; Eosinophils # 0.1 10^3/uL (0.0-0.8); Eosinophils % 2.5 %; Hematocrit 38.2 % (42.0-52.0); Hemoglobin 13.1 g/dL (11.7-16.6); Lymphocytes # 1.9 10^3/uL (0.8-4.8); Lymphocytes % 33.1 %; Mean Corpuscular HGB Conc 34.3 g/dL (30.0-36.0); Mean Corpuscular Hemoglobin 32.4 pg (28.0-34.0); Mean Corpuscular Volume 94.6 fl (80-94); Mean Platelet Volume 9.8 fL (7.4-10.4); Monocytes # 0.5 10^3/uL (0.2-0.9); Neutrophils # 3.08 10^3/uL (1.8-7.7); Neutrophils % 54.5 %; Nucleated Red Blood Cells % 0 %; Platelet Count 277 10^3/cmm (130-400); Red Blood Count 4.04 10^6/uL (4.1-5.3); Red Cell Distribution Width 13.2 % (12.1-15.1); White Blood Count 5.7 10^3/uL (4.0-10.0)
[2022-06-04 18:42] LABS: Amphetamines Screen Urine Negative (Negative); Barbiturates Screen Urine Negative (Negative); Benzodiazepines Screen Urine Negative (Negative); Cocaine Screen Urine Negative (Negative); Opiate Screen Urine Negative (Negative); PCP Screen Urine Negative (Negative); THC Screen Urine Positive (Negative)
[2022-06-04 18:45] LABS: Alanine Aminotransferase 33 U/L (0-41); Albumin Level 4.8 g/dL (3.5-5.2); Alkaline Phosphatase 106 U/L (40-130); Anion Gap 16.4 (5-19); Aspartate Amino Transferase 33 U/L (0-40); Blood Urea Nitrogen 22 mg/dL (6-20); Calcium 9.6 mg/dL (8.5-10.5); Carbon Dioxide 22 mmol/L (22-29); Chloride 108 mmol/L (98-107); Globulin 1.9 g/dL (1.3-4.6); Glomerular Filtration Rate 102.3 mL/min (90-130); Glucose 110 mg/dL (65-115); Osmolality Calculated 298 mOsm/kg (285-295); Potassium 4.4 mmol/L (3.5-5.1); Sodium 142 mmol/L (136-145); Total Bilirubin 0.4 mg/dL (0.15-1.2); Total Protein 6.7 g/dL (6.6-8.7)
[2022-06-04 19:00] LABS: Acetaminophen < 5.0 ug/mL (10-30); Alcohol Level < 10 mg/dL (0-10); Salicylate < 0.3 mg/dL (3-10)
[2022-06-05 06:25] VITALS: BP 141/94; PULSE 74; RESP 19; O2SAT 98
--- NOTE | 2022-06-05 08:14 | PC.NURSE ---
Patient out of anika, reports that he is angry and in pain, requesting medication. ER provider notified.
[2022-06-05] MEDS: OLANZapine 10 mg TABLET PO (08:25)
[2022-06-05] MEDS: HYDROcodone-acetaminophen 5-325 mg Tablet 1 TAB PO ×2 (08:25→18:55)
[2022-06-05 12:11] LABS: Folate Level 11.2 ng/mL (4.5-32.2)
[2022-06-05 12:12] LABS: Add Urine Microscopic? NO; Charge for UA Resulting for Rev
[2022-06-05 12:13] LABS: Thyroid Stimulating Hormone 0.86 uIU/mL (0.27-4.20); Vitamin B12 314 pg/mL (232-1245)
[2022-06-05 13:22] VITALS: BP 142/92; PULSE 84; RESP 20; O2SAT 100
[2022-06-05 13:41] LABS: Bilirubin Urine Neg (Negative); Blood Urine Neg (Negative); Glucose Urine UA Norm (Normal); Ketones Urine 1+ (Negative); Leukocyte Esterase Urine Negative (Negative); Nitrate Urine Negative (Negative); Protein Urine Neg (Negative); Urine Appearance Clear (CLEAR); Urine Color Yellow (Yellow); Urobilinogen Urine 4 mg/dL (Negative); pH Urine 7 (5-7)
[2022-06-05 14:03] LABS: Free T4 Free Thyroxine 0.86 ng/dL (0.82-1.77)
[2022-06-05] MEDS: ondansetron 4 MG Tablet PO (14:21)
[2022-06-05 14:27] LABS: SARS Covid-2 Antigen Negative (Negative)
[2022-06-05] MEDS: OLANZapine 10 mg ODT 20 MG PO (18:56)
[2022-06-06] MEDS: OLANZapine 10 mg ODT 20 MG PO (05:24)
[2022-06-06] MEDS: HYDROcodone-acetaminophen 5-325 mg Tablet 1 TAB PO (05:25)
[2022-06-06 09:00] VITALS: BP 118/94; RESP 16
[2022-06-06 13:49] LABS: RPR w(Moniotor) w/REFL Titer NON-REACTIVE (NON-REACTIVE)
== END 2022-06-06 09:16 | disposition home or self-care (01) ==
PROVIDERS: Emergency Medicine; Emergency Provider Family Medicine; PCP Family Medicine Adult Medicine
DX: F15.159 Other stimulant abuse with stimulant-induced psychotic disorder, unspecified (principal); R45.851 Suicidal ideations; J44.9 Chronic obstructive pulmonary disease, unspecified; E78.5 Hyperlipidemia, unspecified; I10 Essential (primary) hypertension; F17.210 Nicotine dependence, cigarettes, uncomplicated; Z20.822 Contact with and (suspected) exposure to COVID-19
CPT/HCPCS: 80053; 80306; 80307; 81003; 82607; 82746; 84439; 84443; 85025; 86592; 87426; 99285; Q0162

== ENCOUNTER 2022-06-28 10:09 | Emergency (ER) | payer MEDICAID, SELFPAY ==
[2022-06-28 10:39] VITALS: BMI 20.2
[2022-06-28 10:50] VITALS: BP 142/91; PULSE 90; RESP 16; O2SAT 98
[2022-06-28 11:17] LABS: Basophils % 0.9 %; Eosinophils # 0.1 10^3/uL (0.0-0.8); Eosinophils % 2.5 %; Hematocrit 35.5 % (42.0-52.0); Hemoglobin 11.7 g/dL (11.7-16.6); Lymphocytes # 1.4 10^3/uL (0.8-4.8); Lymphocytes % 31.9 %; Mean Corpuscular Hemoglobin 32.2 pg (28.0-34.0); Mean Corpuscular Volume 97.8 fl (80-94); Mean Platelet Volume 9.9 fL (7.4-10.4); Monocytes # 0.5 10^3/uL (0.2-0.9); Monocytes % 10.3 %; Neutrophils # 2.43 10^3/uL (1.8-7.7); Neutrophils % 54.2 %; Nucleated Red Blood Cells % 0 %; Platelet Count 238 10^3/cmm (130-400); Red Blood Count 3.63 10^6/uL (4.1-5.3); Red Cell Distribution Width 14.1 % (12.1-15.1); White Blood Count 4.5 10^3/uL (4.0-10.0)
[2022-06-28 11:37] LABS: Acetaminophen < 5.0 ug/mL (10-30); Alanine Aminotransferase 20 U/L (0-41); Albumin Level 3.9 g/dL (3.5-5.2); Alcohol Level < 10 mg/dL (0-10); Alkaline Phosphatase 89 U/L (40-130); Anion Gap 13.8 (5-19); Aspartate Amino Transferase 26 U/L (0-40); Blood Urea Nitrogen 14 mg/dL (6-20); Calcium 8.4 mg/dL (8.5-10.5); Carbon Dioxide 21 mmol/L (22-29); Chloride 109 mmol/L (98-107); Creatinine Clr Calc Pharmacy 148.9342; Globulin 2.1 g/dL (1.3-4.6); Glomerular Filtration Rate 142.6 mL/min (90-130); Glucose 89 mg/dL (65-115); Osmolality Calculated 290 mOsm/kg (285-295); Potassium 3.8 mmol/L (3.5-5.1); Salicylate < 0.3 mg/dL (3-10); Sodium 140 mmol/L (136-145); Total Bilirubin 0.3 mg/dL (0.15-1.2)
--- NOTE | 2022-06-28 12:57 | PC.PHAR ---
pt states he takes care of his own medications-pt states he is still taking ziprasidone 40mg bid filled 05/19/22 15d/s and trazodone 50mg hs filled 05/19/22 30d/s notes are made in the pharmacy comments
--- NOTE | 2022-06-28 13:17 | XRR_ITS ---
PROCEDURE INFORMATION: Exam: XR Chest Exam date and time: 06/28/2022 1:26 PM Age: 51 years old Clinical indication: Other: Mental status change; Additional info: Medical screening TECHNIQUE: Imaging protocol: Radiologic exam of the chest. Views: 1 view. COMPARISON: CR (CHEST, ) 05/15/2022 4:31 PM FINDINGS: Lungs: Unremarkable. No consolidation. Skin fold projects on the left hemithorax. Pleural spaces: Unremarkable. No pleural effusion. No pneumothorax. Heart/Mediastinum: Unremarkable. No cardiomegaly. Bones/joints: Unremarkable. XR/XR chest 1V portable [id number] IMPRESSION: No acute findings.
--- NOTE | 2022-06-28 13:38 | ECG_ITS ---
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 Measurements Intervals [place] Rate: 81 P: 67 LA: 135 QRS: 69 QRSD: 80 T: 85 QT: 400 QTc: 466 Interpretive Statements SINUS RHYTHM NONSPECIFIC T-WAVE ABNORMALITY Compared to ECG 05/15/2022 16:48:45 T-wave abnormality now present Electronically Signed On 06-28-2022 20:42:55 CDT by Linda Thakur M.D. [id number]
--- NOTE | 2022-06-28 13:47 | DCPLANNER ---
Addendum entered by Roxanne Villagomez 06/29/22 08:38: Patient was accepted at [facility] Original Note: spa manager/esthetician was asked to look for psych placement for patient. spa manager/esthetician called the following facilities and faxed it to places that had beds available. [facility] - [facility] to [facility] - [facility] beds [facility] - left voicemail at 1:15 [facility] - beds [facility] - faxed information [facility] - no beds [facility] - no beds [facility] - faxed information [facility] - faxed information [facility] - no beds [facility] - no beds [facility] - faxed information [facility] - faxed information [facility] - no beds [facility] - faxed information [facility] - faxed information
[2022-06-28 13:53] LABS: Thyroid Stimulating Hormone 0.68 uIU/mL (0.27-4.20)
--- NOTE | 2022-06-28 14:29 | W.ED.PSYCHS ---
HPI - Psych General: Chief Complaint: Psychiatric Symptoms Stated Complaint: General Weakness Time Seen by Provider: 06/28/22 11:09 Source: patient Mode of arrival: ambulatory History of Present Illness: 51-year-old male brought in by EMS accompanied with PD. Their first called for medical call and a friend at the scene related to them that the patient had tried to kill himself and he had a loaded weapon and duffel bag. PD was called they secured the weapon patient did admit to having tried to kill himself left and states he has been very depressed he also is reporting that he is being stalked. He states he has not been able to go to sleep as he is been using methamphetamine to keep himself awake. He thinks a drug cartel is stalking him and he is afraid if he goes to sleep they will kill him. When asked why in particular they had targeted him he is unable to give a response. MD complaint: suicidal ideation Onset (ago): hour(s) Duration: constant History of same: Yes Relieving factors: none Exacerbating factors: none Context: recent drug abuse Associated psychiatric symptoms: depression, suicidal ideation, racing thoughts and delusions Associated symptoms: Reports delusions, depression and suicidal ideation; Deny auditory hallucinations, visual hallucinations, homicidal ideation or racing thoughts Treatments prior to arrival: none Review of Systems Const: Denies: fever(s), chills, body aches, change in appetite, fatigue or malaise ENMT: Denies: throat pain, ear or mastoid pain, nasal discharge or nasal congestion Card: Denies: chest pain, edema, dyspnea on exertion or orthopnea Resp: Denies: dyspnea, productive cough or non-productive cough GI: Denies: abdominal pain, nausea, vomiting, hematemesis, coffee ground emesis, diarrhea, constipation, bloating, hematochezia or melena : Denies: flank pain, dysuria, urinary frequency or urinary urgency Skin/Breast: Denies: rash or pruritus Psych: Reports: depression and suicidal ideation; Denies: visual hallucinations, auditory hallucinations or homicidal ideation [facility] ED PFSH: Medical History Alcohol use disorder Cannabis dependence, daily use Patient states he uses daily for pain management-reports having a medical marijuana card Cervical disc disorder at C4-C5 level with radiculopathy Chronic low back pain with bilateral sciatica COPD (chronic obstructive pulmonary disease) Encounter to establish care Esophageal foreign body Esophageal stricture Hallucinations, visual Hyperlipidemia Hypertension Methamphetamine abuse Multiple substance abuse Alcohol, Cannabis, Methamphemine, nicotine Nicotine dependence, cigarettes, uncomplicated Prediabetes Psychiatric care Radiculopathy of cervical region Radiculopathy of lumbosacral region Right medial knee pain Schizoaffective disorder, bipolar type Surgical History H/O esophagogastroduodenoscopy (11/24/21) Disimpaction of food bolus History of ankle surgery left History of arthroscopic knee surgery History of foot surgery Social History Smoking and tobacco status: current every day smoker (1ppd) cigarettes Packs smoked per day: 1 Alcohol intake: current Alcohol intake frequency: few times a week Alcohol type: beer Adopted: Yes Lives independently: Yes Household members: none Housing: Other Details: [facility] Marital status: Single Highest education level completed: 9th Grade service: No Current occupational status: disabled History of recent travel: No Current gender identity: Male Physical Exam Const: COMMON NORMALS: no acute distress GENERAL APPEARANCE: cooperative and comfortable ORIENTATION/CONSCIOUSNESS: Yes awake, Yes oriented to person, Yes oriented to place and Yes oriented to time HENMT: COMMON NORMALS: normocephalic, atraumatic and hearing grossly normal bilaterally HEAD & SCALP: normocephalic and atraumatic Eye: COMMON NORMALS: Equal, round and reactive pupils present, EOMs intact bilaterally, conjunctivae normal and no scleral icterus CONJUNCTIVA: Yes conjunctivae normal PUPIL: Yes Equal, round and reactive pupils present Neck/C-Spine: COMMON NORMALS: full ROM, no lymphadenopathy, supple and no JVD Lymph: LYMPHATIC: no lymphadenopathy noted and no lymphedema noted Resp: COMMON NORMALS: normal respiratory effort, No retractions, No use of accessory muscles and clear to auscultation bilaterally AUSCULTATION: clear to auscultation bilaterally Cardio: COMMON NORMALS: no JVD, regular rate, regular rhythm and No murmurs present (Cardio) RATE: regular rate RHYTHM: regular rhythm GI: COMMON NORMALS: Soft to palpation and No hepatosplenomegaly present AUSCULTATION: Yes normoactive bowel sounds PALPATION: Yes Soft to palpation, No Tenderness to palpation present (GI), No Guarding due to palpation present (GI) and Yes No hepatosplenomegaly present Extremity: COMMON NORMALS: normal to inspection, capillary refill normal, no clubbing, cyanosis or edema, no calf tenderness and no pedal edema Neuro: SENSORIUM/ORIENTATION: Yes oriented to person, Yes oriented to place and Yes oriented to time Psych: THOUGHT CONTENT: Yes delusions Skin: COMMON NORMALS: no rashes or lesions noted GENERAL SKIN EXAM: no rashes or lesions noted Course Vital Signs: Vital signs: Vital Signs Pulse Rate 86 06/28/22 18:27 Respiratory Rate 16 06/28/22 10:50 Blood Pressure 136/82 06/28/22 18:27 Pulse Oximetry 98 06/28/22 18:27 Oxygen Delivery Me thod 06/28/22 18:27 MDM - Psych Medical Decision Making Suicidal ideation with attempt. Additionally patient is having paranoid delusions. Discussed briefly with Dr. Jones he is familiar the patient we both agree patient to be admitted unfortunately we do not have any open beds and are on psychiatry unit so off to transfer the patient. Patient transferred by ambulance to outside neuropsychiatric inpatient facility. Medical Records I reviewed the patient's medical records. Lab Data I reviewed the patient's lab results. : 06/28/22 11:05 06/28/22 11:05 Radiology Impressions Chest X-Ray 06/28/22 13:17 IMPRESSION: No acute findings. Laboratory Results WBC 4.5 10^3/uL (4.0-10.0) 06/28/22 11:05 RBC 3.63 10^6/uL (4.1-5.3) L 06/28/22 11:05 Hgb 11.7 g/dL (11.7-16.6) 06/28/22 11:05 Hct 35.5 % (42.0-52.0) L 06/28/22 11:05 MCV 97.8 fl (80-94) H 06/28/22 11:05 MCH 32.2 pg (28.0-34.0) 06/28/22 11:05 MCHC 33.0 g/dL (30.0-36.0) 06/28/22 11:05 RDW 14.1 % (12.1-15.1) 06/28/22 11:05 Plt Count 238 10^3/cmm (130-400) 06/28/22 11:05 MPV 9.9 fL (7.4-10.4) 06/28/22 11:05 Neut % (Auto) 54.2 % 06/28/22 11:05 Lymph % (Auto) 31.9 % 06/28/22 11:05 [place] % (Auto) 10.3 % 06/28/22 11:05 Eos % (Auto) 2.5 % 06/28/22 11:05 Baso % (Auto) 0.9 % 06/28/22 11:05 Neut # (Auto) 2.43 10^3/uL (1.8-7.7) 06/28/22 11:05 Lymph # (Auto) 1.4 10^3/uL (0.8-4.8) 06/28/22 11:05 [place] # (Auto) 0.5 10^3/uL (0.2-0.9) 06/28/22 11:05 Eos # (Auto) 0.1 10^3/uL (0.0-0.8) 06/28/22 11:05 Baso # (Auto) 0.0 10^3/uL (0.0-0.1) 06/28/22 11:05 Nucleated RBC % (auto) 0 % 06/28/22 11:05 Nucleated RBCs # 0.0 /100WBC 06/28/22 11:05 Sodium 140 mmol/L (136-145) 06/28/22 11:05 Potassium 3.8 mmol/L (3.5-5.1) 06/28/22 11:05 Chloride 109 mmol/L (98-107) H 06/28/22 11:05 Carbon Dioxide 21 mmol/L (22-29) L 06/28/22 11:05 Anion Gap 13.8 (5-19) 06/28/22 11:05 BUN 14 mg/dL (6-20) 06/28/22 11:05 Creatinine 0.6 mg/dL (0.7-1.2) L 06/28/22 11:05 GFR Calculation 142.6 mL/min (90-130) H 06/28/22 11:05 Glucose 89 mg/dL (65-115) 06/28/22 11:05 Calculated Osmolality 290 mOsm/kg (285-295) 06/28/22 11:05 Calcium 8.4 mg/dL (8.5-10.5) L 06/28/22 11:05 Total Bilirubin 0.3 mg/dL (0.15-1.2) 06/28/22 11:05 AST 26 U/L (0-40) 06/28/22 11:05 ALT 20 U/L (0-41) 06/28/22 11:05 Alkaline Phosphatase 89 U/L (40-130) 06/28/22 11:05 Total Protein 6.0 g/dL (6.6-8.7) L 06/28/22 11:05 Albumin 3.9 g/dL (3.5-5.2) 06/28/22 11:05 Globulin 2.1 g/dL (1.3-4.6) 06/28/22 11:05 TSH 0.68 uIU/mL (0.27-4.20) 06/28/22 11:05 Free T4 0.90 ng/dL (0.82-1.77) 06/28/22 11:05 Free T4 Index Cancelled 06/28/22 11:05 Thyroxine (T4) Cancelled 06/28/22 11:05 Urine Color Yellow (Yellow) 06/28/22 14:35 Urine Appearance Hazy (CLEAR) A 06/28/22 14:35 Urine pH 6 (5-7) 06/28/22 14:35 Ur Specific [place] 1.020 (1.005-1.030) 06/28/22 14:35 Urine Protein Neg (Negative) 06/28/22 14:35 Urine Glucose (UA) Norm (Normal) 06/28/22 14:35 Urine Ketones Negative (Negative) 06/28/22 14:35 Urine Blood Neg (Negative) 06/28/22 14:35 Urine Nitrate Negative (Negative) 06/28/22 14:35 Urine Bilirubin Neg (Negative) 06/28/22 14:35 Urine Urobilinogen Neg mg/dL (Negative) 06/28/22 14:35 Ur Leukocyte Esterase Negative (Negative) 06/28/22 14:35 Urine RBC Rare /hpf (0-2) 06/28/22 14:35 Urine WBC Rare /hpf (0-5) 06/28/22 14:35 Ur Squamous Epith Cells 15-25 /hpf (0-5) H 06/28/22 14:35 Amorphous Sediment Not Reportable 06/28/22 14:35 Urine Bacteria None /hpf (NONE) 06/28/22 14:35 Urine Mucus 1+ /hpf 06/28/22 14:35 Urine Sperm 1+ /hpf 06/28/22 14:35 Salicylates < 0.3 mg/dL (3-10) L 06/28/22 11:05 Urine Opiates Screen Negative ng/mL (Negative) 06/28/22 14:35 Acetaminophen < 5.0 ug/mL (10-30) L 06/28/22 11:05 Ur Barbiturates Screen Negative ng/mL (Negative) 06/28/22 14:35 Ur Phencyclidine Scrn Negative ng/mL (Negative) 06/28/22 14:35 Ur Amphetamines Screen Negative ng/mL (Negative) 06/28/22 14:35 U Benzodiazepines Scrn Negative ng/mL (Negative) 06/28/22 14:35 Urine Cocaine Screen Negative ng/mL (Negative) 06/28/22 14:35 U Marijuana (THC) Screen Positive ng/mL (Negative) H 06/28/22 14:35 Ethyl Alcohol < 10 mg/dL (0-10) 06/28/22 11:05 Coronavirus 229E (PCR) Not detected (NOT DETECT) 06/28/22 13:30 SARS-CoV-2 (PCR) Not detected (NOT DETECT) 06/28/22 13:30 Discharge Plan Discharge Patient Disposition: Xfer Psychiatric Hosp Condition: Stable Referrals: Jasson Torres MD [Primary Care Provider] - Coding Level of Care Code ED Watch Train Inspector for Chg Fwd Exam Comprehensive
[2022-06-28 15:04] LABS: Amphetamines Screen Urine Negative (Negative); Barbiturates Screen Urine Negative (Negative); Benzodiazepines Screen Urine Negative (Negative); Bilirubin Urine Neg (Negative); Blood Urine Neg (Negative); Cocaine Screen Urine Negative (Negative); Glucose Urine UA Norm (Normal); Ketones Urine Negative (Negative); Leukocyte Esterase Urine Negative (Negative); Nitrate Urine Negative (Negative); Opiate Screen Urine Negative (Negative); PCP Screen Urine Negative (Negative); Protein Urine Neg (Negative); RBC Urine RARE /hpf (0-2); THC Screen Urine Positive (Negative); Urine Appearance Hazy (CLEAR); Urine Color Yellow (Yellow); Urobilinogen Urine Neg (Negative); WBC Urine RARE /hpf (0-5); pH Urine 6 (5-7)
[2022-06-28 15:05] LABS: Add Urine Culture? No; Mucus Urine 1+ /hpf; Sperm Urine 1+ /hpf; Squamous Epithelial Cell Urine 15-25 /hpf (0-5)
[2022-06-28 15:22] LABS: Adenovirus Not Detected (NOT DETECT); Chlamydia Pneumoniae Not Detected (NOT DETECT); Coronavirus 229E,HKU1,NL63,OC4 Not Detected (NOT DETECT); Human Metapneumovirus Not Detected (NOT DETECT); Human Rhinovirus/Enterovirus Not Detected (NOT DETECT); Influenza A Not Detected (NOT DETECT); Influenza A H1 Not Detected (NOT DETECT); Influenza A H1-2009 Not Detected (NOT DETECT); Influenza A H3 Not Detected (NOT DETECT); Influenza B Not Detected (NOT DETECT); Mycoplasma Pneumoniae Not Detected (NOT DETECT); Parainfluenza Virus Type 1 Not Detected (NOT DETECT); Parainfluenza Virus Type 2 Not Detected (NOT DETECT); Parainfluenza Virus Type 3 Not Detected (NOT DETECT); Parainfluenza Virus Type 4 Not Detected (NOT DETECT); Respiratory Syncytial Virus A Not Detected (NOT DETECT); Respiratory Syncytial Virus B Not Detected (NOT DETECT); SARS-COV-2 Not Detected (NOT DETECT)
[2022-06-28 18:27] VITALS: BP 136/82; PULSE 86; O2SAT 98
--- NOTE | 2022-06-28 19:00 | PC.NURSE ---
Report from PHIL Fry. Pt resting quietly. NAD. No needs at this time
--- NOTE | 2022-06-28 20:23 | PC.NURSE ---
EMS here to transport pt. Pt escorted to restroom and then to ambulance. Verbal report given.
== END 2022-06-28 20:25 ==
PROVIDERS: Emergency Medicine; Emergency Provider Family Medicine; PCP Family Medicine Adult Medicine
DX: R45.851 Suicidal ideations (principal); F22 Delusional disorders; I10 Essential (primary) hypertension; E78.5 Hyperlipidemia, unspecified; J44.9 Chronic obstructive pulmonary disease, unspecified; F17.210 Nicotine dependence, cigarettes, uncomplicated
CPT/HCPCS: 71045; 80053; 80306; 80307; 81001; 84439; 84443; 85025; 87635; 93005; 99285

== ENCOUNTER 2022-07-16 16:25 | Emergency (ER) | payer MEDICAID, SELFPAY ==
[2022-07-16 16:25] VITALS: BP 140/93; PULSE 105; RESP 15; O2SAT 98; BMI 22.3
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
--- NOTE | 2022-07-16 16:52 | PC.NURSE ---
pt belongings in ER cabinet 2. this nurse and security inventory count on pt tim on hand, seal in envelope
[2022-07-16 17:17] LABS: Basophils # 0.1 10^3/uL (0.0-0.1); Basophils % 0.7 %; Eosinophils # 0.2 10^3/uL (0.0-0.8); Eosinophils % 3.1 %; Hematocrit 40.2 % (42.0-52.0); Hemoglobin 13.4 g/dL (11.7-16.6); Lymphocytes # 1.9 10^3/uL (0.8-4.8); Lymphocytes % 25.3 %; Mean Corpuscular HGB Conc 33.3 g/dL (30.0-36.0); Mean Corpuscular Hemoglobin 32.4 pg (28.0-34.0); Mean Corpuscular Volume 97.1 fl (80-94); Mean Platelet Volume 9.4 fL (7.4-10.4); Monocytes # 0.5 10^3/uL (0.2-0.9); Monocytes % 6.3 %; Neutrophils # 4.82 10^3/uL (1.8-7.7); Neutrophils % 64.3 %; Nucleated Red Blood Cells % 0 %; Platelet Count 257 10^3/cmm (130-400); Red Blood Count 4.14 10^6/uL (4.1-5.3); Red Cell Distribution Width 13.7 % (12.1-15.1); White Blood Count 7.5 10^3/uL (4.0-10.0)
[2022-07-16 17:39] LABS: Alanine Aminotransferase 20 U/L (0-41); Albumin Level 4.2 g/dL (3.5-5.2); Alkaline Phosphatase 81 U/L (40-130); Anion Gap 12.2 (5-19); Aspartate Amino Transferase 19 U/L (0-40); Blood Urea Nitrogen 8 mg/dL (6-20); Carbon Dioxide 30 mmol/L (22-29); Chloride 101 mmol/L (98-107); Globulin 2.5 g/dL (1.3-4.6); Glomerular Filtration Rate 102.3 mL/min (90-130); Glucose 107 mg/dL (65-115); Lipase 22 U/L (13-60); Osmolality Calculated 287 mOsm/kg (285-295); Potassium 4.2 mmol/L (3.5-5.1); Sodium 139 mmol/L (136-145); Total Bilirubin 0.4 mg/dL (0.15-1.2); Total Protein 6.7 g/dL (6.6-8.7)
[2022-07-16 17:44] LABS: Acetaminophen < 5.0 ug/mL (10-30); Alcohol Level < 10 mg/dL (0-10); Salicylate < 0.3 mg/dL (3-10)
[2022-07-16 17:52] VITALS: PULSE 100; O2SAT 97
[2022-07-16 18:02] LABS: Amphetamines Screen Urine Positive (Negative); Barbiturates Screen Urine Negative (Negative); Benzodiazepines Screen Urine Negative (Negative); Cocaine Screen Urine Negative (Negative); Opiate Screen Urine Negative (Negative); PCP Screen Urine Negative (Negative); THC Screen Urine Positive (Negative)
[2022-07-16 18:15] VITALS: PULSE 98; O2SAT 98
[2022-07-16] MEDS: acetaminophen 500 mg Tablet PO (18:28)
[2022-07-16] MEDS: tetanus-dipt-pertussis 0.5 mL SDV IM (18:29)
[2022-07-16 18:30] VITALS: PULSE 98; O2SAT 98
[2022-07-16 20:00] VITALS: BP 138/84; PULSE 90; RESP 15; TEMP 37.2; O2SAT 98
--- NOTE | 2022-07-16 20:38 | XRR_ITS ---
PROCEDURE INFORMATION: Exam: XR Chest Exam date and time: 07/16/2022 8:49 PM Age: 51 years old Clinical indication: Condition or disease; Other: Pysch; Additional info: Psych clearance TECHNIQUE: Imaging protocol: Radiologic exam of the chest. Views: 1 view. COMPARISON: CR XR chest 1V portable [id number] 06/28/2022 1:26 PM FINDINGS: Lungs: Unremarkable. No consolidation. Pleural spaces: Unremarkable. No pleural effusion. No pneumothorax. Heart/Mediastinum: Unremarkable. No cardiomegaly. Bones/joints: Unremarkable. XR/XR chest 1V portable [id number] IMPRESSION: No acute findings.
--- NOTE | 2022-07-16 20:55 | ECG_ITS ---
[facility] Test Date: 2022-07-16 Pat Name: Marty Rosas Department: Room: Gender: Male Certified Paralegal: : 1970 Requested By: Debora Mohan Order Number: [id number] Merida MD: Linda Thakur M.D. Measurements Intervals [place] Rate: 93 P: 64 MD: 136 QRS: 73 QRSD: 78 T: 78 QT: 352 QTc: 440 Interpretive Statements SINUS RHYTHM Compared to ECG 06/28/2022 13:38:45 T-wave abnormality no longer present Electronically Signed On 07-17-2022 18:03:33 CDT by Linda Thaukr M.D. [id number]
[2022-07-16 21:34] LABS: SARS Covid-2 Antigen negative (Negative)
[2022-07-16 22:00] VITALS: PULSE 84; RESP 16; O2SAT 97
[2022-07-17] VITALS: BP 142/90; PULSE 78; RESP 16; O2SAT 96
[2022-07-17 04:00] VITALS: PULSE 85; RESP 15; O2SAT 97
--- NOTE | 2022-07-17 04:01 | PC.NURSE ---
[facility] Bullard [facility] [place] contacted for room availability . Jareth bullard states no room availability til even possibility until monday.
--- NOTE | 2022-07-17 04:38 | PC.NURSE ---
Called [facility], spoke with Zoila. Chart and face sheet faxed. awaiting decision
--- NOTE | 2022-07-17 05:13 | PC.NURSE ---
[facility] may have D/C today and asked we fax chart so they can review.
--- NOTE | 2022-07-17 05:21 | PC.NURSE ---
[facility] has bed available. Chart faxed.
[2022-07-17] MEDS: LORazepam 1 mg Tablet PO (06:55)
--- NOTE | 2022-07-17 07:17 | PC.NURSE ---
pt resting in bed, lights dimmed. remains in line of sight of sitter
[2022-07-17 09:42] VITALS: BP 143/86; PULSE 99; RESP 16; O2SAT 99
--- NOTE | 2022-07-17 10:46 | PC.NURSE ---
patient belongings including envelope of tim($230) verified with patient and sent with patient and ems on transfer
== END 2022-07-17 10:49 ==
PROVIDERS: Emergency Provider Emergency Medicine; PCP Family Medicine Adult Medicine
DX: R45.851 Suicidal ideations (principal); Z20.822 Contact with and (suspected) exposure to COVID-19; J44.9 Chronic obstructive pulmonary disease, unspecified; E78.5 Hyperlipidemia, unspecified; I10 Essential (primary) hypertension; F17.210 Nicotine dependence, cigarettes, uncomplicated; Z23 Encounter for immunization
CPT/HCPCS: 36415; 71045; 80053; 80306; 80307; 83690; 85025; 87426; 90471; 90715; 93005; 99285